=== PATIENT | male | born 1950 | race Caucasian/White ===

== ENCOUNTER 2020-07-20 08:41 | Outpatient (REF) | payer MEDICARE, SELFPAY ==
[2020-07-20 09:40] LABS: MANUAL DIFF FLAG NO
[2020-07-20 09:54] LABS: Basophils Percent Auto 0.5 % (0-2); Eosinophils Percent Auto 0.1 % (0-4); Hematocrit 42.4 % (42-52); Hemoglobin 14.5 g/dl (14.0-18.0); Imm Gran Abs Auto 0.03 X10*3/uL (0.00-0.03); Imm Gran Pct Auto 0.4 % (0.0-0.4); Lymphocytes Absolute Auto 2.3 X10*3/uL (1.2-4.9); Mean Corpuscular HGB Conc 34.2 g/dl (31.0-36.0); Mean Corpuscular Hemoglobin 31.9 pg (27.0-33.0); Mean Corpuscular Volume 93.2 fL (80-98); Mean Platelet Volume 9.6 fL (9.4-12.4); Monocytes Absolute Auto 0.6 X10*3/uL (0.1-1.2); Monocytes Percent Auto 7.7 % (2-11); Neutrophils Absolute Auto 4.7 X10*3/uL (2.0-8.3); Neutrophils Percent Auto 61.3 % (45-73); Platelet Count 175 X10*3/uL (160-400); Red Blood Count 4.55 X10*6/uL (4.60-5.80); Red Cell Distribution Width 12.8 % (11.0-16.0); White Blood Count 7.6 X10*3/uL (4.8-10.8)
[2020-07-20 10:21] LABS: Alanine Aminotransferase 8 U/L (0-40); Albumin Level 4.4 g/dL (3.5-5.0); Alkaline Phosphatase 50 U/L (39-117); Anion Gap 13 (12-20); Aspartate Amino Transferase 13 U/L (5-37); Bilirubin Total 1.5 mg/dL (0.0-1.0); Blood Urea Nitrogen 11 mg/dL (9-16); Calcium 9.5 mg/dL (8.4-10.2); Carbon Dioxide 27 mmol/L (22-29); Chloride 106 mmol/L (96-108); Cholesterol 159 mg/dL; Estimated Glomerular Filt Rate 45; Glucose Fasting 99 mg/dL (60-99); HDL Cholesterol 32 mg/dL; LDL Cholesterol Calculated 92 mg/dl; Potassium 4.2 mmol/l (3.3-5.1); Sodium 142 mmol/L (135-145); Total Protein 6.8 g/dL (6.5-8.0); Triglycerides 179 mg/dL
[2020-07-20 10:42] LABS: T4 Thyroxine 11.3 ug/dL (4.5-12.0); Thyroid Stimulating Hormone 0.13 uIU/mL (0.32-4.0)
[2020-07-20 11:01] LABS: Folate > 20.0 ng/mL (> or = 4.0); Vitamin B12 > 2000 pg/mL (200-900)
== END 2020-07-20 08:42 | disposition home or self-care (01) ==
LOC: HO.LAB 08:41
PROVIDERS: Referring Provider Internal Medicine Endocrinology, Diabetes & Metabolism; Visit Provider Internal Medicine
DX: E78.00 Pure hypercholesterolemia, unspecified (principal); Z72.0 Tobacco use; G50.0 Trigeminal neuralgia; E03.9 Hypothyroidism, unspecified; I10 Essential (primary) hypertension; F41.8 Other specified anxiety disorders
CPT/HCPCS: 36415; 80053; 80061; 82607; 82746; 84436; 84443; 85025

== ENCOUNTER 2020-10-15 09:12 | Outpatient (REF) | payer MEDICARE, SELFPAY ==
[2020-10-15 10:22] LABS: Free T4 (Free Thyroxine) 1.08 ng/dL (0.71-1.85); Thyroid Stimulating Hormone 2.77 uIU/mL (0.32-4.0)
== END 2020-10-15 09:13 | disposition home or self-care (01) ==
LOC: HO.LAB 09:12
PROVIDERS: PCP Internal Medicine; Visit Provider Internal Medicine
DX: E03.9 Hypothyroidism, unspecified (principal)
CPT/HCPCS: 36415; 84439; 84443

== ENCOUNTER 2021-06-25 07:51 | Outpatient (REF) | payer MEDICARE, SELFPAY ==
[2021-06-25 08:18] LABS: MANUAL DIFF FLAG NO
[2021-06-25 08:41] LABS: Basophils Percent Auto 0.5 % (0-2); Eosinophils Percent Auto 0.2 % (0-4); Hematocrit 36.4 % (42.0-52.0); Hemoglobin 12.7 g/dl (14.0-18.0); Imm Gran Abs Auto 0.02 X10*3/uL (0.00-0.03); Imm Gran Pct Auto 0.4 % (0.0-0.4); Lymphocytes Absolute Auto 2.1 X10*3/uL (1.2-4.9); Mean Corpuscular HGB Conc 34.9 g/dl (31.0-36.0); Mean Corpuscular Hemoglobin 32.6 pg (27.0-33.0); Mean Corpuscular Volume 93.3 fL (80.0-98.0); Mean Platelet Volume 9.3 fL (9.4-12.4); Monocytes Absolute Auto 0.5 X10*3/uL (0.1-1.2); Monocytes Percent Auto 8.2 % (2-11); Neutrophils Percent Auto 52.7 % (45-73); Platelet Count 150 X10*3/uL (160-400); Red Cell Distribution Width 12.7 % (11.0-16.0); White Blood Count 5.6 X10*3/uL (4.8-10.8)
[2021-06-25 09:04] LABS: Alanine Aminotransferase 9 U/L (0-40); Alkaline Phosphatase 42 U/L (39-117); Anion Gap 11 (12-20); Aspartate Amino Transferase 14 U/L (5-37); Bilirubin Total 0.8 mg/dL (0.0-1.0); Blood Urea Nitrogen 9 mg/dL (9-16); Calcium 9.5 mg/dL (8.4-10.2); Carbon Dioxide 28 mmol/L (22-29); Chloride 106 mmol/L (96-108); Cholesterol 156 mg/dL; Estimated Glomerular Filt Rate 51; Glucose Random 106 mg/dL (60-115); HDL Cholesterol 33 mg/dL; LDL Cholesterol Calculated 96 mg/dl; Potassium 4.3 mmol/L (3.3-5.1); Sodium 141 mmol/L (135-145); Total Protein 6.4 g/dL (6.5-8.0); Triglycerides 139 mg/dL
[2021-06-25 09:21] LABS: TSH reflex Free T4 1.34 uIU/mL (0.32-4.0)
[2021-06-25 09:27] LABS: Free T4 (Free Thyroxine) 1.42 ng/dL (0.71-1.85)
[2021-06-25 09:49] LABS: Folate > 20.0 ng/mL (> or = 4.0); Vitamin B12 > 2000 pg/mL (200-900)
== END 2021-06-25 07:52 | disposition home or self-care (01) ==
LOC: HO.LAB 07:51
PROVIDERS: Absent Provider Internal Medicine Endocrinology, Diabetes & Metabolism; PCP Internal Medicine; Visit Provider Internal Medicine
DX: E03.9 Hypothyroidism, unspecified (principal); E78.00 Pure hypercholesterolemia, unspecified; I12.9 Hypertensive chronic kidney disease with stage 1 through stage 4 chronic kidney disease, or unspecified chronic kidney disease; N18.31 Chronic kidney disease, stage 3a
CPT/HCPCS: 36415; 80053; 80061; 82607; 82746; 84439; 84443; 85025

== ENCOUNTER 2021-12-11 08:04 | Outpatient (REF) | payer MEDICARE, SELFPAY ==
[2021-12-11 08:26] LABS: MANUAL DIFF FLAG NO
[2021-12-11 08:33] LABS: Basophils Absolute Auto 0.1 X10*3/uL (0.0-0.2); Basophils Percent Auto 0.9 % (0-2); Hematocrit 39.5 % (42.0-52.0); Hemoglobin 13.3 g/dl (14.0-18.0); Imm Gran Abs Auto 0.02 X10*3/uL (0.00-0.03); Imm Gran Pct Auto 0.4 % (0.0-0.4); Immature Retic Fraction 9.9 % (2.3-13.4); Mean Corpuscular HGB Conc 33.7 g/dl (31.0-36.0); Mean Corpuscular Hemoglobin 31.6 pg (27.0-33.0); Mean Corpuscular Volume 93.8 fL (80.0-98.0); Mean Platelet Volume 9.1 fL (9.4-12.4); Monocytes Absolute Auto 0.4 X10*3/uL (0.1-1.2); Monocytes Percent Auto 6.9 % (2-11); Neutrophils Absolute Auto 3.2 x10*3/uL (2.0-8.3); Neutrophils Percent Auto 55.8 % (45-73); Platelet Count 163 X10*3/uL (160-400); Red Blood Count 4.21 X10*6/uL (4.60-5.80); Red Cell Distribution Width 12.6 % (11.0-16.0); Reticulocyte Percent 1.5 % (0.5-1.8); Reticulocytes Absolute 0.062 X10*6/uL (0.026-0.095); White Blood Count 5.6 X10*3/uL (4.8-10.8)
[2021-12-11 08:51] LABS: Estimated Average Glucose 94 mg/dL; Hemoglobin A1c % 4.9 %
[2021-12-11 08:59] LABS: Alanine Aminotransferase 7 U/L (0-40); Alkaline Phosphatase 44 U/L (39-117); Anion Gap 11 (12-20); Aspartate Amino Transferase 12 U/L (5-37); Blood Urea Nitrogen 7 mg/dL (9-16); Calcium 9.7 mg/dL (8.4-10.2); Carbon Dioxide 26 mmol/L (22-29); Chloride 107 mmol/L (96-108); Estimated Glomerular Filt Rate 47; Glucose Random 106 mg/dL (60-115); Iron 81 mcg/dL (45-160); Percent Iron Saturation 25 % (15-50); Potassium 4.2 mmol/L (3.3-5.1); Sodium 140 mmol/L (135-145); Total Iron Binding Capacity 326 mcg/dL (228-428); Total Protein 6.5 g/dL (6.5-8.0); Unsaturated Iron Binding 245 ug/dL
[2021-12-11 09:22] LABS: TSH reflex Free T4 1.99 uIU/mL (0.32-4.0)
[2021-12-11 09:23] LABS: Ferritin 49 ng/mL (20-250); Free T4 (Free Thyroxine) 1.45 ng/dL (0.71-1.85)
[2021-12-11 09:37] LABS: Folate > 20.0 ng/mL (> or = 4.0); Vitamin B12 > 2000 pg/mL (200-900)
== END 2021-12-11 08:05 | disposition home or self-care (01) ==
LOC: HO.LAB 08:04
PROVIDERS: Absent Provider Internal Medicine Endocrinology, Diabetes & Metabolism; PCP Internal Medicine; Visit Provider Internal Medicine
DX: E03.9 Hypothyroidism, unspecified (principal); D64.9 Anemia, unspecified; R73.01 Impaired fasting glucose
CPT/HCPCS: 36415; 80053; 82607; 82728; 82746; 83036; 83540; 84439; 84443; 85025; 85045

== ENCOUNTER 2022-07-09 08:41 | Outpatient (REF) | payer MEDICARE, SELFPAY ==
[2022-07-09 08:56] LABS: MANUAL DIFF FLAG NO
[2022-07-09 09:23] LABS: Basophils Absolute Auto 0.1 X10*3/uL (0.0-0.2); Basophils Percent Auto 0.9 % (0-2); Hematocrit 42.6 % (42.0-52.0); Hemoglobin 14.4 g/dl (14.0-18.0); Imm Gran Abs Auto 0.01 X10*3/uL (0.00-0.03); Imm Gran Pct Auto 0.2 % (0.0-0.4); Lymphocytes Absolute Auto 2.3 X10*3/uL (1.2-4.9); Lymphocytes Percent Auto 35.2 % (20-40); Mean Corpuscular HGB Conc 33.8 g/dl (31.0-36.0); Mean Corpuscular Hemoglobin 31.1 pg (27.0-33.0); Mean Platelet Volume 9.1 fL (9.4-12.4); Monocytes Absolute Auto 0.4 X10*3/uL (0.1-1.2); Monocytes Percent Auto 6.1 % (2-11); Neutrophils Absolute Auto 3.8 x10*3/uL (2.0-8.3); Neutrophils Percent Auto 57.6 % (45-73); Platelet Count 162 X10*3/uL (160-400); Red Blood Count 4.63 X10*6/uL (4.60-5.80); Red Cell Distribution Width 12.7 % (11.0-16.0); White Blood Count 6.5 X10*3/uL (4.8-10.8)
[2022-07-09 09:25] LABS: Estimated Average Glucose 94 mg/dL; Hemoglobin A1c % 4.9 %
[2022-07-09 10:04] LABS: Alanine Aminotransferase 7 U/L (0-40); Albumin Level 4.3 g/dL (3.5-5.0); Alkaline Phosphatase 47 U/L (39-117); Anion Gap 13 (12-20); Aspartate Amino Transferase 15 U/L (5-37); Bilirubin Total 1.2 mg/dL (0.0-1.0); Blood Urea Nitrogen 9 mg/dL (9-16); Carbon Dioxide 28 mmol/L (22-29); Chloride 103 mmol/L (96-108); Estimated Glomerular Filt Rate 48; Glucose Random 91 mg/dL (60-115); Potassium 3.9 mmol/L (3.3-5.1); Sodium 140 mmol/L (135-145); Thyroid Stimulating Hormone 1.52 uIU/mL (0.32-4.0); Total Protein 6.9 g/dL (6.5-8.0)
== END 2022-07-09 08:42 | disposition home or self-care (01) ==
LOC: HO.LAB 08:41
PROVIDERS: PCP Internal Medicine; Visit Provider Internal Medicine
DX: R73.01 Impaired fasting glucose (principal); E03.9 Hypothyroidism, unspecified
CPT/HCPCS: 36415; 80053; 83036; 84439; 84443; 85025

== ENCOUNTER 2022-09-25 13:38 | Outpatient (REF) | payer MEDICARE, SELFPAY ==
[2022-09-25 13:50] LABS: MANUAL DIFF FLAG NO
[2022-09-25 14:09] LABS: Basophils Absolute Auto 0.1 X10*3/uL (0.0-0.2); Hematocrit 41.3 % (42.0-52.0); Imm Gran Abs Auto 0.03 X10*3/uL (0.00-0.03); Imm Gran Pct Auto 0.4 % (0.0-0.4); Lymphocytes Absolute Auto 2.3 X10*3/uL (1.2-4.9); Lymphocytes Percent Auto 31.7 % (20-40); Mean Corpuscular HGB Conc 33.9 g/dl (31.0-36.0); Mean Corpuscular Hemoglobin 31.6 pg (27.0-33.0); Mean Corpuscular Volume 93.2 fL (80.0-98.0); Mean Platelet Volume 9.3 fL (9.4-12.4); Monocytes Absolute Auto 0.8 X10*3/uL (0.1-1.2); Monocytes Percent Auto 10.3 % (2-11); Neutrophils Absolute Auto 4.1 x10*3/uL (2.0-8.3); Neutrophils Percent Auto 56.6 % (45-73); Platelet Count 155 X10*3/uL (160-400); Red Blood Count 4.43 X10*6/uL (4.60-5.80); Red Cell Distribution Width 12.7 % (11.0-16.0); White Blood Count 7.3 X10*3/uL (4.8-10.8)
[2022-09-25 14:49] LABS: Alanine Aminotransferase 15 U/L (0-40); Albumin Level 4.2 g/dL (3.5-5.0); Alkaline Phosphatase 43 U/L (39-117); Anion Gap 13 (12-20); Aspartate Amino Transferase 13 U/L (5-37); Bilirubin Total 1.8 mg/dL (0.0-1.0); Blood Urea Nitrogen 8 mg/dL (9-16); Calcium 9.6 mg/dL (8.4-10.2); Carbon Dioxide 28 mmol/L (22-29); Chloride 104 mmol/L (96-108); Cholesterol 165 mg/dL; Estimated Glomerular Filt Rate 46; Glucose Random 62 mg/dL (60-115); HDL Cholesterol 33 mg/dL; LDL Cholesterol Calculated 101 mg/dl; Sodium 141 mmol/L (135-145); Total Protein 6.5 g/dL (6.5-8.0); Triglycerides 157 mg/dL
[2022-09-25 15:09] LABS: Folate 3.7 ng/mL (> or = 4.0); Thyroid Stimulating Hormone 0.69 uIU/mL (0.32-4.0); Vitamin B12 1410 pg/mL (200-900)
== END 2022-09-25 13:39 | disposition home or self-care (01) ==
LOC: HO.LAB 13:38
PROVIDERS: PCP Internal Medicine; Visit Provider Internal Medicine
DX: N18.31 Chronic kidney disease, stage 3a (principal); E78.00 Pure hypercholesterolemia, unspecified
CPT/HCPCS: 36415; 80053; 80061; 82607; 82746; 84439; 84443; 85025

== ENCOUNTER → 2023-02-13 10:47 | Outpatient (BNVA) | payer MEDICARE, SELFPAY | PROVIDERS: Visit Provider Orthopaedic Surgery | DX: R22.31 Localized swelling, mass and lump, right upper limb (principal); N18.31 Chronic kidney disease, stage 3a; I71.40 Abdominal aortic aneurysm, without rupture, unspecified | CPT/HCPCS: 99202 ==

== ENCOUNTER 2023-02-19 08:34 | Day surgery (SDC) | payer MEDICARE, SELFPAY ==
[2023-02-19 08:47] VITALS: BP 147/60; PULSE 62; RESP 18; TEMP 36.3; O2SAT 97; BMI 27.3
--- NOTE | 2023-02-19 11:39 | MHC.SHP ---
Pre-Procedural Eval Section A Date of Service: 02/19/23 The patient is an INPATIENT: No Changes since office visit: No Cold of Flu in the past 2 weeks, No New Medical Problems, No Changes in Medication and No Patient answered all questions The History & Physical has been completed within 30 days and I have reviewed it.: Yes Section B Chief Complaint: Localized swelling, mass and lump, right upper bull Allergies: Allergies Allergy/AdvReac Type Severity Reaction Status Date / Time No Known Allergies Allergy Verified 02/13/23 11:03 Plan I have reviewed the history and physical and performed a pertinent physical examination on my patient. No changes have occurred unless specified. Time Spent With Patient Time: Total time managing care of this patient today ____ minutes.
--- NOTE | 2023-02-19 11:40 | W.PM.OPN ---
Operative Note Operative Note Date of Service: 02/19/23 Narrative: Operative Note Preop diagnosis: 1. right dorsal hand skin mass worrisome for malignancy Postop diagnosis: same Procedure: 1. right dorsal hand skin mass excisional biopsy Surgeon: Kaylen Vidal MD Anesthesia: digital block using 1% lidocaine with epinephrine Findings: An approximately 9 mm diameter raised pink skin mass EBL: Less than 5 mL Tourniquet time: None Specimens: right dorsal hand skin mass sent for histopathology Complications: None Disposition: Brought to recovery room in stable condition Plan: Follow-up for 7-10 days for wound check and suture removal and to check pathology Indications: The patient is 72 years old, with a right dorsal hand skin mass worrisome for malignancy . The risks and benefits of operative treatment including but not limited to risk of damage to blood vessels, nerves, tendons, infection, persistent pain, persistent symptoms, recurrence or possible need for additional surgery were discussed with the patient and the patient wishes to proceed with surgery. Procedure: Once consent was obtained a local block was performed in the preop area using a combination of 1% lidocaine with epinephrine. The patient was then brought back to the operating suite and placed on the operative table in supine position. A tourniquet was applied to the proximal aspect of the right upper extremity and the limb was prepped and draped in a standard surgical fashion. Once assured that we had a good block, I made a longitudinally oriented elliptical incision about the right dorsal hand skin mass. the mass was pink and raised in approximately 9 mm in diameter.. I then dissected the elliptical piece of skin from the underlying subcutaneous tissues using a 15. Blade and tenotomy and iris scissors. We made sure to try to have at least 2 mm on either side of the mass in an attempt to have clean margins. The mass appeared to be within the skin and did not appear to extend deep to the dermis. Was placed on the back table to be sent for histopathology. No other masses were appreciated. Once satisfied with Are excisional biopsy the wound was copiously irrigated with normal saline and hemostasis was obtained with a brief period of local pressure. The skin edges were reapproximated with some 5.0 nylon suture material and a sterile dressing was applied. The patient appears to have tolerated the procedure well and with no complications. All digits were well vascularized at the conclusion of the case.
[2023-02-19 12:06] VITALS: BP 159/89; PULSE 59; RESP 16; O2SAT 98
[2023-02-19 13:21] VITALS: BP 159/89; PULSE 59; RESP 16; O2SAT 98
== END 2023-02-19 13:22 | disposition home or self-care (01) ==
PROVIDERS: PCP Internal Medicine; Visit Provider Orthopaedic Surgery
PROC: (CPT 11421; principal; 2023-02-19 10:30)
DX: R22.31 Localized swelling, mass and lump, right upper limb (principal); L85.8 Other specified epidermal thickening; L57.8 Other skin changes due to chronic exposure to nonionizing radiation; X32.XXXA Exposure to sunlight, initial encounter; Y99.8 Other external cause status; I12.9 Hypertensive chronic kidney disease with stage 1 through stage 4 chronic kidney disease, or unspecified chronic kidney disease; N18.31 Chronic kidney disease, stage 3a; G50.0 Trigeminal neuralgia; R73.02 Impaired glucose tolerance (oral); Z86.79 Personal history of other diseases of the circulatory system; F17.210 Nicotine dependence, cigarettes, uncomplicated
CPT/HCPCS: 11421; 88305; J0171

== ENCOUNTER → 2023-02-19 08:34 | Outpatient (BNV) | payer MEDICARE, SELFPAY | PROVIDERS: PCP Internal Medicine; Visit Provider Orthopaedic Surgery | DX: R22.31 Localized swelling, mass and lump, right upper limb (principal) | CPT/HCPCS: 11423 ==

== ENCOUNTER 2023-03-03 08:25 | Outpatient (AMB) | payer MEDICARE, SELFPAY ==
--- NOTE | 2023-03-03 08:28 | MHC.PC.OV ---
Vital Signs 03/03/23 08:29 Height 5 ft 9 in Weight 188 lb BMI 27.8 BP 128/72 Blood Pressure Location Lt brachial Position Sitting Pulse 77 Pulse Source Pulse Oximeter Pulse Oximetry (%) 98 Oxygen Delivery Method Room Air Intake Visit Reasons: Med Management Allergies No Known Allergies Allergy (Verified 03/03/23 08:29) Tobacco use date assessed: 01/06/23 Fall risk assessment: No Falls in past year Last assessed Fall Risk: 03/03/23 Dental Screening Dental Screen Date: 03/03/23 Did you have a dental visit in the last 12 months?: Yes Did you have a dental problem in the last 6 months where you did not have access to dental care?: No Was dental information given to patient?: Patient has dentist HPI Med Management HPI Details 72-year-old male smoker with trigeminal neurologist seen on a monthly basis for narcotic medication refill has chronic kidney disease. Review of the notes recently had an outpatient surgery for right dorsal hand mass showing benign keratosis and solar elastosis last blood work was done in September 2019 for cholesterol. advised to see dermatology [facility] Medical History AAA (abdominal aortic aneurysm) Cervical nerve root compression Colonoscopy refused Hypercholesterolemia Hypertension Hypothyroid Impaired glucose tolerance Medicare annual wellness visit, initial Psoriasis Tobacco abuse Surgical History H/O arthroscopy of left knee History of AAA (abdominal aortic aneurysm) repair History of facial surgery Family History Father Hypertension CVD (cardiovascular disease) Mother CVD (cardiovascular disease) Brother No problems noted. Brother No problems noted. Daughter No problems noted. Sister No problems noted. Sister No problems noted. Sister No problems noted. Sister No problems noted. 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 1. Little interest or pleasure in doing things: not at all 2. Feeling down, depressed, or hopeless: not at all 3. Trouble falling or staying asleep, or sleeping too much: not at all 4. Feeling tired or having little energy: not at all 5. Poor appetite or overeating: not at all 6. Feeling bad about yourself - or that you are a failure or have let yourself or your family down: not at all 7. Trouble concentrating on things, such as reading the newspaper or watching television: not at all 8. Moving or speaking so slowly that other people could have noticed. Or the opposite - being so fidgety or restless that you have been moving around a lot more than usual: not at all 9. Thoughts that you would be better off or of hurting yourself in some way: not at all Total score: 0 Depression Screening Interpretation: Negative Source: Developed by Drs. Bautista Lizarraga, Oh Colon and colleagues, with an educational elise from [employer]. Thrive Questionnaire Date Thrive assessed: 11/07/22 AUDIT C Alcohol Use Questionnaire (AUDIT-C) 1. How often do you have a drink containing alcohol?: Never 3. How often do you have six or more drinks on one occasion?: Never Total Score: 0 CHNADA-7 AMB Questionnaire CHANDA-7 Date CHANDA - 7 assessed: 01/06/23 Source: Developed by Drs. Bautista Lizarraga, Oh Colon and colleagues, with an educational elise from [employer]. Physical exam (Primary Care) Vital Signs: Last Vital Signs Pulse 77 03/03/23 08:29 BP 128/72 03/03/23 08:29 Pulse Ox 98 03/03/23 08:29 Oxygen Delivery Method Room Air 03/03/23 08:29 Care Plan Goal for BP management: Right dorsum of the hand has 1-1/2 inch incisional scar with sutures which are going to being taken out tomorrow. No redness no swelling BMI result Body Mass Index 27.8 Tobacco/Smoking Status: Tobacco use Status Tobacco use date assessed 01/06/23 03/03/23 08:36 Patient Tobacco Use Status Current everyday Tobacco 03/03/23 08:36 Tobacco use type Cigarette 03/03/23 08:36 e-Cigarette/Vaping Use Never Used 03/03/23 08:36 PHQ-9: PHQ-9 Score PHQ-9: Total score 0 03/03/23 08:36 Depression Screening Interpretation: Negative Thrive Assessment: Date of Thrive Assessment Date Thrive assessed 11/07/22 03/03/23 08:36 Const General: alert; No acute distress Eyes Conjunctivae: conjunctivae normal Resp Auscultation: clear to auscultation bilaterally Cardio Rate: regular rate Rhythm: regular rhythm GI Inspection: Yes normal to inspection Extrem General: Yes normal to inspection and No edema Assessment and Plan Assessment & Plan (1) Mass of skin of right hand: Code(s): R22.31 - Localized swelling, mass and lump, right upper limb Plan: Status post surgery right dorsal hand mass showing benign keratosis and solar elastosis. advised to ff up with dermatology (2) CKD (chronic kidney disease) stage 3, GFR 30-59 ml/min: Code(s): N18.30 - Chronic kidney disease, stage 3 unspecified Qualifiers: Chronic kidney disease stage 3 subtype: stage 3a (GFR 45-59) Qualified Code(s): N18.31 - Chronic kidney disease, stage 3a Plan: Keep well hydrated avoid NSAIDs (3) Tobacco abuse: Code(s): Z72.0 - Tobacco use Plan: Strongly advised to stop! (4) Trigeminal neuralgia pain: Code(s): G50.0 - Trigeminal neuralgia Plan: Narcotic pain meds: Is being prescribed with the understanding that these medications are potentially addictive and should be used only when absolutely necessary and must always be secured. Any remaining pills should be safely disposed off appropriately. Patient is advised that narcotics can impaired judgment and one should not drive or operate heavy machinery while taking these medications. Never share these medications with anybody and do not leave them unattended. They will not be replaced under any circumstances. (5) Actinic keratosis: Code(s): L57.0 - Actinic keratosis Plan: Referral to Dermatology (6) Generalized anxiety disorder: Code(s): F41.1 - Generalized anxiety disorder Plan: No counseling needed and refill a prescription done Orders: Referrals Dermatology Referral L57.0 - Actinic keratosis Medications: Refilled oxycodone-acetaminophen 10-325 mg 1-2 tabs every 6 hours PRN; 240 tabs 0RF pain G50.0 - Trigeminal neuralgia diazepam (Valium) 5 mg PO BID 90 days PRN 90 tabs 1RF anxiety F41.1 - Generalized anxiety disorder Discontinued oxycodone-acetaminophen 5-325 mg Partial Fill upon patient request. Discontinued Reason: Doctor's Order 1 tab PO Q6H PRN 5 tabs 0RF pain Coding Level of Care Code Est Pt Level 4 (56413) Diagnoses Mass of skin of right hand R22.31 CKD (chronic kidney disease) stage 3, GFR 30-59 ml/min N18.31 Chronic kidney disease stage 3 subtype: stage 3a (GFR 45-59) Tobacco abuse Z72.0 Trigeminal neuralgia pain G50.0 Actinic keratosis L57.0 Generalized anxiety disorder F41.1
[2023-03-03 08:29] VITALS: BP 128/72; PULSE 77; O2SAT 98; BMI 27.8
== END 2023-03-03 08:59 | disposition home or self-care (01) ==
PROVIDERS: Visit Provider Internal Medicine
DX: R22.31 Localized swelling, mass and lump, right upper limb (principal); N18.31 Chronic kidney disease, stage 3a; Z72.0 Tobacco use; G50.0 Trigeminal neuralgia; L57.0 Actinic keratosis; F41.1 Generalized anxiety disorder
CPT/HCPCS: 99214

== ENCOUNTER 2023-03-04 14:16 | Outpatient (AMB) | payer MEDICARE, SELFPAY ==
--- NOTE | 2023-03-04 14:20 | A.OFFVIS_ITS ---
Intake Vital Signs 03/04/23 14:22 Height 5 ft 9 in Weight 188 lb BMI 27.8 Intake Visit Reasons: PO RT Dorsal Hand Skin mass exc. 02/19/23AR Intake Note: Jose Rafael a 72 year old male who presents today for a post operative right dorsal hand skin mass excision on 02/19/23 AR. Patient reports little discomfort with stretching of hand. He has no other concerns today. Allergies No Known Allergies Allergy (Verified 03/04/23 14:28) HPI PO RT Dorsal Hand Skin mass exc. 02/19/23AR HPI Details Jose Rafael is a 72 year old right hand dominant man who presents S/P right dorsal hand mass excision, DOS: 02/19/23. He says he is doing well and is happy that this mass was benign. He says he has seen a Body Design Checker in the past, but has not in several years. His primary care doctor, Dr. Perez, has referred him to dermatology. He says following his surgery he was referred to Dr. Johnson. When he followed up with his PCP, Dr. Perez, he says Dr. Johnson was listed as his PCP. He has corrected this listing with his PCP and on his records. [facility] Medical History AAA (abdominal aortic aneurysm) Cervical nerve root compression Colonoscopy refused Hypercholesterolemia Hypertension Hypothyroid Impaired glucose tolerance Medicare annual wellness visit, initial Psoriasis Tobacco abuse Surgical History H/O arthroscopy of left knee History of AAA (abdominal aortic aneurysm) repair History of facial surgery Family History Father Hypertension CVD (cardiovascular disease) Mother CVD (cardiovascular disease) Brother No problems noted. Brother No problems noted. Daughter No problems noted. Sister No problems noted. Sister No problems noted. Sister No problems noted. Sister No problems noted. 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 Sutures removed and Steri-Strips applied He can make a fist and extend all his digits Sensation is intact Cap refill is brisk Pathology Report from 02/19/23: Diagnosis Skin, right dorsal hand, excision: Benign keratosis and solar elastosis. Psych Appearance: grossly normal Affect: normal affect Attitude: cooperative Assessment & Plan Assessment & Plan (1) Mass of skin of right hand: Code(s): R22.31 - Localized swelling, mass and lump, right upper limb (2) CKD (chronic kidney disease) stage 3, GFR 30-59 ml/min: Code(s): N18.30 - Chronic kidney disease, stage 3 unspecified Qualifiers: Chronic kidney disease stage 3 subtype: stage 3a (GFR 45-59) Qualified Code(s): N18.31 - Chronic kidney disease, stage 3a (3) AAA (abdominal aortic aneurysm): Comment: December 2010 3.8 cm, March [address] Camara up Code(s): I71.4 - Abdominal aortic aneurysm, without rupture Plan Assessment & Plan: 1. Right dorsal hand keratosis & solar elastosis, S/P excision Just radial to the 2nd metacarpal DOS: 02/19/23 The patient appears to be doing well post-operatively I educated him about the post-operative course He should avoid any underwater activities for the next 2 days He should gently massage about the incision site to reduce the risk of hypersensitivity He can follow up prn Scribed for Kaylen Vidal MD by Otto Ni, medical record consultant, on 03/04/23 at 2:45 PM, EST. Coding Level of Care Code Global (69323) Diagnoses Mass of skin of right hand R22.31 CKD (chronic kidney disease) stage 3, GFR 30-59 ml/min N18.31 Chronic kidney disease stage 3 subtype: stage 3a (GFR 45-59) AAA (abdominal aortic aneurysm) I71.4
[2023-03-04 14:22] VITALS: BMI 27.8
== END 2023-03-04 15:01 ==
PROVIDERS: PCP Internal Medicine; Visit Provider Orthopaedic Surgery
DX: R22.31 Localized swelling, mass and lump, right upper limb (principal); N18.31 Chronic kidney disease, stage 3a; I71.40 Abdominal aortic aneurysm, without rupture, unspecified
CPT/HCPCS: 99024

== ENCOUNTER → 2023-03-04 14:16 | Outpatient (BNVA) | payer MEDICARE, SELFPAY | PROVIDERS: PCP Internal Medicine; Visit Provider Orthopaedic Surgery ==

== ENCOUNTER 2023-04-06 15:00 | Outpatient (AMB) | payer MEDICARE, SELFPAY ==
--- NOTE | 2023-04-06 15:01 | A.OFFPC_ITS ---
Intake Visit Reasons: Med Management Allergies No Known Allergies Allergy (Verified 04/06/23 15:01) Medication List - Last Reconciled 04/06/23 by Anne-Marie Perez MD aspirin 81 mg PO DAILY atenolol 25 mg PO BID 90 days cholecalciferol (vitamin D3) 25 mcg PO DAILY cyanocobalamin (vitamin B-12) 1,000 mcg PO DAILY diazepam (Valium) 5 mg PO BID PRN 90 days folic acid 1 mg PO DAILY levothyroxine 125 mcg PO DAILY 90 days oxycodone-acetaminophen 10-325 mg 1-2 tabs every 6 hours PRN; simvastatin 10 mg PO QPM 90 days Tobacco use date assessed: 01/06/23 Fall risk assessment: No Falls in past year Last assessed Fall Risk: 04/06/23 Dental Screening Dental Screen Date: 04/06/23 Did you have a dental visit in the last 12 months?: Yes Did you have a dental problem in the last 6 months where you did not have access to dental care?: No Was dental information given to patient?: Patient has dentist HPI Med Management HPI Details 72-year-old male smoker with a history of trigeminal neuralgia chronic kidney disease Rosie anxiety disorder coming in for follow-up through Telehealth patient was last seen in February 2023 patient follows up with orthopedics who has had then incision on mass on the right hand keratosis and solar elastosis this is just radial to the 2nd metacarpal. Called patient coming in for tele [facility] Medical History AAA (abdominal aortic aneurysm) Cervical nerve root compression Colonoscopy refused Hypercholesterolemia Hypertension Hypothyroid Impaired glucose tolerance Medicare annual wellness visit, initial Psoriasis Tobacco abuse Surgical History H/O arthroscopy of left knee History of AAA (abdominal aortic aneurysm) repair History of facial surgery Family History Father Hypertension CVD (cardiovascular disease) Mother CVD (cardiovascular disease) Brother No problems noted. Brother No problems noted. Daughter No problems noted. Sister No problems noted. Sister No problems noted. Sister No problems noted. Sister No problems noted. 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 1. Little interest or pleasure in doing things: not at all 2. Feeling down, depressed, or hopeless: not at all 3. Trouble falling or staying asleep, or sleeping too much: not at all 4. Feeling tired or having little energy: not at all 5. Poor appetite or overeating: not at all 6. Feeling bad about yourself - or that you are a failure or have let yourself or your family down: not at all 7. Trouble concentrating on things, such as reading the newspaper or watching television: not at all 8. Moving or speaking so slowly that other people could have noticed. Or the opposite - being so fidgety or restless that you have been moving around a lot more than usual: not at all 9. Thoughts that you would be better off or of hurting yourself in some way: not at all Total score: 0 Depression Screening Interpretation: Negative Source: Developed by Drs. Bautista Lizarraga, Oh Colon and colleagues, with an educational elise from [employer]. Thrive Questionnaire Date Thrive assessed: 11/07/22 AUDIT C Alcohol Use Questionnaire (AUDIT-C) 1. How often do you have a drink containing alcohol?: Never 3. How often do you have six or more drinks on one occasion?: Never Total Score: 0 CHANDA-7 AMB Questionnaire CHANDA-7 Date CHANDA - 7 assessed: 01/06/23 Source: Developed by Drs. Bautista Lizarraga, Oh Colon and colleagues, with an educational elise from [employer]. Physical exam (Primary Care) Tobacco/Smoking Status: Tobacco use Status Tobacco use date assessed 01/06/23 04/06/23 15:02 Patient Tobacco Use Status Current everyday Tobacco 04/06/23 15:02 Tobacco use type Cigarette 04/06/23 15:02 e-Cigarette/Vaping Use Never Used 04/06/23 15:02 PHQ-9: PHQ-9 Score PHQ-9: Total score 0 04/06/23 15:02 Depression Screening Interpretation: Negative Thrive Assessment: Date of Thrive Assessment Date Thrive assessed 11/07/22 04/06/23 15:02 Telehealth Telehealth Location of provider rendering services: practice address Location of patient: address on file Patient Identification confirmed using: Name, : Yes Telehealth method: voice only Patient verbally consented to treatment: Yes Patient verbally consented to billing insurance company: Yes Patient informed of any privacy concerns related to visit: Yes Minutes spent on Phone/Video with Pt.: 25 Assessment and Plan Assessment & Plan (1) Mass of skin of right hand: Code(s): R22.31 - Localized swelling, mass and lump, right upper limb Plan: Status post surgery follows up with orthopedics and doing good (2) Tobacco abuse: Code(s): Z72.0 - Tobacco use Plan: Patient has been strongly advised to stop (3) Trigeminal neuralgia pain: Code(s): G50.0 - Trigeminal neuralgia Plan: Narcotic pain meds: Is being prescribed with the understanding that these medications are potentially addictive and should be used only when absolutely necessary and must always be secured. Any remaining pills should be safely disposed off appropriately. Patient is advised that narcotics can impaired judgment and one should not drive or operate heavy machinery while taking these medications. Never share these medications with anybody and do not leave them unattended. They will not be replaced under any circumstances. Medications: Refilled oxycodone-acetaminophen 10-325 mg 1-2 tabs every 6 hours PRN; 240 tabs 0RF pain G50.0 - Trigeminal neuralgia Coding Level of Care Code Tele Est Pt Level 4 (29350) Diagnoses Mass of skin of right hand R22.31 Tobacco abuse Z72.0 Trigeminal neuralgia pain G50.0
== END 2023-04-06 15:32 | disposition home or self-care (01) ==
LOC: HO.HMGH 15:00
PROVIDERS: PCP Internal Medicine; Visit Provider Internal Medicine
DX: R22.31 Localized swelling, mass and lump, right upper limb (principal); Z72.0 Tobacco use; G50.0 Trigeminal neuralgia
CPT/HCPCS: 99443

== ENCOUNTER 2023-05-05 08:37 | Outpatient (AMB) | payer MEDICARE, SELFPAY ==
[2023-05-05 08:39] VITALS: BP 142/68; PULSE 65; O2SAT 97; BMI 27.5
--- NOTE | 2023-05-05 08:39 | MHC.PC.OV ---
Vital Signs 05/05/23 08:39 Height 5 ft 9 in Weight 186 lb BMI 27.5 BP 142/68 H Blood Pressure Location Lt brachial Position Sitting Pulse 65 Pulse Source Pulse Oximeter Pulse Oximetry (%) 97 Oxygen Delivery Method Room Air Intake Visit Reasons: med f/u Allergies No Known Allergies Allergy (Verified 05/05/23 08:39) Medication List - Last Reconciled 05/05/23 by Anne-Marie Perez MD aspirin 81 mg PO DAILY atenolol 25 mg PO BID 90 days cholecalciferol (vitamin D3) 25 mcg PO DAILY cyanocobalamin (vitamin B-12) 1,000 mcg PO DAILY diazepam (Valium) 5 mg PO BID PRN 90 days folic acid 1 mg PO DAILY levothyroxine 125 mcg PO DAILY 90 days oxycodone-acetaminophen 10-325 mg 1-2 tabs every 6 hours PRN; simvastatin 10 mg PO QPM 90 days Tobacco use date assessed: 01/06/23 Fall risk assessment: No Falls in past year Last assessed Fall Risk: 05/05/23 Dental Screening Dental Screen Date: 05/05/23 Did you have a dental visit in the last 12 months?: Yes Did you have a dental problem in the last 6 months where you did not have access to dental care?: No Was dental information given to patient?: Patient has dentist HPI med f/u HPI Details 72-year-old male smoker with trigeminal neuralgia pain on narcotic pain medication seen in the office on a monthly basis. Last seen in 04/06/2023 had surgery on the right hand for a mass. Patient is here for follow-up [facility] Medical History AAA (abdominal aortic aneurysm) Cervical nerve root compression Colonoscopy refused Hypercholesterolemia Hypertension Hypothyroid Impaired glucose tolerance Medicare annual wellness visit, initial Psoriasis Tobacco abuse Surgical History H/O arthroscopy of left knee History of AAA (abdominal aortic aneurysm) repair History of facial surgery Family History Father Hypertension CVD (cardiovascular disease) Mother CVD (cardiovascular disease) Brother No problems noted. Brother No problems noted. Daughter No problems noted. Sister No problems noted. Sister No problems noted. Sister No problems noted. Sister No problems noted. 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 1. Little interest or pleasure in doing things: not at all 2. Feeling down, depressed, or hopeless: not at all 3. Trouble falling or staying asleep, or sleeping too much: not at all 4. Feeling tired or having little energy: not at all 5. Poor appetite or overeating: not at all 6. Feeling bad about yourself - or that you are a failure or have let yourself or your family down: not at all 7. Trouble concentrating on things, such as reading the newspaper or watching television: not at all 8. Moving or speaking so slowly that other people could have noticed. Or the opposite - being so fidgety or restless that you have been moving around a lot more than usual: not at all 9. Thoughts that you would be better off or of hurting yourself in some way: not at all Total score: 0 Depression Screening Interpretation: Negative Source: Developed by Drs. Bautista Lizarraga, Candace Krause, Oh Laureano and colleagues, with an educational elise from [employer]. Thrive Questionnaire Date Thrive assessed: 11/07/22 AUDIT C Alcohol Use Questionnaire (AUDIT-C) 1. How often do you have a drink containing alcohol?: Never 3. How often do you have six or more drinks on one occasion?: Never Total Score: 0 CHANDA-7 AMB Questionnaire CHANDA-7 Date CHANDA - 7 assessed: 01/06/23 Source: Developed by Drs. Bautista Lizarraga, Candace Krause, Oh Laureano and colleagues, with an educational elise from [employer]. Physical exam (Primary Care) Vital Signs: Last Vital Signs Pulse 65 05/05/23 08:39 BP 142/68 H 05/05/23 08:39 Pulse Ox 97 05/05/23 08:39 Oxygen Delivery Method Room Air 05/05/23 08:39 BMI result Body Mass Index 27.5 Tobacco/Smoking Status: Tobacco use Status Tobacco use date assessed 01/06/23 05/05/23 08:40 Patient Tobacco Use Status Current everyday Tobacco 05/05/23 08:40 Tobacco use type Cigarette 05/05/23 08:40 e-Cigarette/Vaping Use Never Used 05/05/23 08:40 PHQ-9: PHQ-9 Score PHQ-9: Total score 0 05/05/23 08:45 Depression Screening Interpretation: Negative Thrive Assessment: Date of Thrive Assessment Date Thrive assessed 11/07/22 05/05/23 08:40 Const General: alert; No acute distress Eyes Conjunctivae: conjunctivae normal Resp Auscultation: clear to auscultation bilaterally Cardio Rate: regular rate Rhythm: regular rhythm GI Inspection: Yes normal to inspection Extrem General: Yes normal to inspection and No edema Assessment and Plan Assessment & Plan (1) Tobacco abuse: Code(s): Z72.0 - Tobacco use Plan: Patient has been advised to stop smoking! (2) Hypertension: Code(s): I10 - Essential (primary) hypertension Qualifiers: Hypertension type: essential hypertension Qualified Code(s): I10 - Essential (primary) hypertension Plan: Continue with blood pressure medication. Decrease salt intake and exercise patient on atenolol 25 mg twice a day (3) Trigeminal neuralgia pain: Code(s): G50.0 - Trigeminal neuralgia Plan: Narcotic pain meds: Is being prescribed with the understanding that these medications are potentially addictive and should be used only when absolutely necessary and must always be secured. Any remaining pills should be safely disposed off appropriately. Patient is advised that narcotics can impaired judgment and one should not drive or operate heavy machinery while taking these medications. Never share these medications with anybody and do not leave them unattended. They will not be replaced under any circumstances. (4) CKD (chronic kidney disease) stage 3, GFR 30-59 ml/min: Code(s): N18.30 - Chronic kidney disease, stage 3 unspecified Qualifiers: Chronic kidney disease stage 3 subtype: stage 3a (GFR 45-59) Qualified Code(s): N18.31 - Chronic kidney disease, stage 3a Plan: Continue to monitor renal function Orders: Orders Hemoglobin A1c Today R73.01 - Impaired fasting glucose Ferritin Today D64.9 - Anemia, unspecified IRON PROFILE Today D64.9 - Anemia, unspecified Vitamin B12 and Folate Today D64.9 - Anemia, unspecified Reticulocyte Count Today D64.9 - Anemia, unspecified Lipid Panel Today E03.9 - Hypothyroidism, unspecified, E78.00 - Pure hypercholesterolemia, unspecified Comprehensive Met. Panel Today N18.31 - Chronic kidney disease, stage 3a Complete Blood Count Auto Diff Today D64.9 - Anemia, unspecified Free T4 (Free Thyroxine) Today E03.9 - Hypothyroidism, unspecified Thyroid Stimulating Hormone Today E03.9 - Hypothyroidism, unspecified Medications: Refilled oxycodone-acetaminophen 10-325 mg 1-2 tabs every 6 hours PRN; 240 tabs 0RF pain G50.0 - Trigeminal neuralgia Coding Level of Care Code Est Pt Level 4 (39401) Diagnoses Tobacco abuse Z72.0 Essential hypertension I10 Hypertension type: essential hypertension Trigeminal neuralgia pain G50.0 Stage 3a chronic kidney disease N18.31 Chronic kidney disease stage 3 subtype: stage 3a (GFR 45-59)
== END 2023-05-05 09:11 | disposition home or self-care (01) ==
PROVIDERS: Visit Provider Internal Medicine
DX: I12.9 Hypertensive chronic kidney disease with stage 1 through stage 4 chronic kidney disease, or unspecified chronic kidney disease (principal); N18.31 Chronic kidney disease, stage 3a; Z72.0 Tobacco use; G50.0 Trigeminal neuralgia
CPT/HCPCS: 99214

== ENCOUNTER 2023-05-29 08:09 | Outpatient (REF) | payer MEDICARE, SELFPAY ==
[2023-05-29 08:18] LABS: MANUAL DIFF FLAG NO
[2023-05-29 08:39] LABS: Basophils Absolute Auto 0.1 X10*3/uL (0.0-0.2); Basophils Percent Auto 0.7 % (0-2); Hematocrit 42.7 % (42.0-52.0); Hemoglobin 14.7 g/dl (14.0-18.0); Imm Gran Abs Auto 0.04 X10*3/uL (0.00-0.03); Imm Gran Pct Auto 0.5 % (0.0-0.4); Immature Retic Fraction 11.1 % (2.3-13.4); Lymphocytes Absolute Auto 1.8 X10*3/uL (1.2-4.9); Lymphocytes Percent Auto 23.8 % (20-40); Mean Corpuscular HGB Conc 34.4 g/dl (31.0-36.0); Mean Corpuscular Hemoglobin 32.5 pg (27.0-33.0); Mean Corpuscular Volume 94.3 fL (80.0-98.0); Mean Platelet Volume 9.3 fL (9.4-12.4); Monocytes Absolute Auto 0.6 X10*3/uL (0.1-1.2); Monocytes Percent Auto 7.7 % (2-11); Neutrophils Percent Auto 67.3 % (45-73); Platelet Count 157 X10*3/uL (160-400); Red Blood Count 4.53 X10*6/uL (4.60-5.80); Red Cell Distribution Width 12.5 % (11.0-16.0); Retic HGB Equivalent 36.9 pg (30.0-35.0); Reticulocyte Percent 1.5 % (0.5-1.8); Reticulocytes Absolute 0.068 X10*6/uL (0.026-0.095); White Blood Count 7.4 X10*3/uL (4.8-10.8)
[2023-05-29 08:59] LABS: Estimated Average Glucose 94 mg/dL; Hemoglobin A1c % 4.9 % (<6.0)
[2023-05-29 09:08] LABS: Alanine Aminotransferase 8 U/L (0-40); Albumin Level 4.3 g/dL (3.5-5.0); Alkaline Phosphatase 49 U/L (39-117); Anion Gap 14 (12-20); Aspartate Amino Transferase 13 U/L (5-37); Blood Urea Nitrogen 8 mg/dL (9-16); Calcium 10.4 mg/dL (8.4-10.2); Carbon Dioxide 25 mmol/L (22-29); Chloride 105 mmol/L (96-108); Cholesterol 161 mg/dL (<200); Estimated Glomerular Filt Rate 52; Glucose Random 103 mg/dL (60-115); HDL Cholesterol 34 mg/dL (>40); Iron 64 mcg/dL (45-160); LDL Cholesterol Calculated 95 mg/dL (<100); Percent Iron Saturation 23 % (15-50); Sodium 140 mmol/L (135-145); Total Iron Binding Capacity 280 mcg/dL (228-428); Total Protein 7.1 g/dL (6.5-8.0); Triglycerides 163 mg/dL (<150); Unsaturated Iron Binding 216 ug/dL
[2023-05-29 09:31] LABS: Ferritin 52 ng/mL (20-250); Free T4 (Free Thyroxine) 1.28 ng/dL (0.71-1.85); Thyroid Stimulating Hormone 0.51 uIU/mL (0.32-4.0)
[2023-05-29 09:38] LABS: Folate > 20.0 ng/mL (> or = 4.0); Vitamin B12 1405 pg/mL (200-900)
== END 2023-05-29 08:10 | disposition home or self-care (01) ==
LOC: HO.LAB 08:09
PROVIDERS: PCP Internal Medicine; Visit Provider Internal Medicine
DX: D64.9 Anemia, unspecified (principal); N18.31 Chronic kidney disease, stage 3a; E03.9 Hypothyroidism, unspecified; R73.01 Impaired fasting glucose; E78.00 Pure hypercholesterolemia, unspecified
CPT/HCPCS: 36415; 80053; 80061; 82607; 82728; 82746; 83036; 83540; 84439; 84443; 85025; 85045

== ENCOUNTER 2023-06-03 08:54 | Outpatient (AMB) | payer MEDICARE, SELFPAY ==
[2023-06-03 08:55] VITALS: BP 170/90; PULSE 67; O2SAT 96; BMI 27.3
--- NOTE | 2023-06-03 08:55 | MHC.PC.OV ---
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 Accompanied by: Self / Same As Patient Allergies No Known Allergies Allergy (Verified 06/03/23 08:58) Tobacco use date assessed: 01/06/23 Fall risk assessment: No Falls in past year Last assessed Fall Risk: 06/03/23 Dental Screening Dental Screen Date: 06/03/23 Did you have a dental visit in the last 12 months?: No Did you have a dental problem in the last 6 months where you did not have access to dental care?: No Was dental information given to patient?: Patient has dentist HPI med f/u HPI Details 72-year-old male smoker with a history of trigeminal neuralgia narcotic pain medication patient has blood pressure problems and chronic kidney disease comes in for follow-up. [facility] Medical History AAA (abdominal aortic aneurysm) Cervical nerve root compression Colonoscopy refused Hypercholesterolemia Hypertension Hypothyroid Impaired glucose tolerance Medicare annual wellness visit, initial Psoriasis Tobacco abuse Surgical History History of facial surgery H/O arthroscopy of left knee History of AAA (abdominal aortic aneurysm) repair Family History Father Hypertension CVD (cardiovascular disease) Mother CVD (cardiovascular disease) Brother No problems noted. Brother No problems noted. Daughter No problems noted. Sister No problems noted. Sister No problems noted. Sister No problems noted. Sister No problems noted. 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 Bautista Lizarraga, Candace Krause, Oh Laureano and colleagues, with an educational elise from [employer]. Physical exam (Primary Care) Vital Signs: Last Vital Signs Pulse 67 06/03/23 08:55 BP 144/88 H 06/03/23 09:24 Pulse Ox 96 06/03/23 08:55 Oxygen Delivery Method Room Air 06/03/23 08:55 BMI result Body Mass Index 27.3 Tobacco/Smoking Status: Tobacco use Status Tobacco use date assessed 01/06/23 06/03/23 08:57 Patient Tobacco Use Status Current everyday Tobacco 06/03/23 08:57 Tobacco use type Cigarette 06/03/23 08:57 e-Cigarette/Vaping Use Never Used 06/03/23 08:57 Thrive Assessment: Date of Thrive Assessment Date Thrive assessed 11/07/22 06/03/23 08:57 Const General: alert; No acute distress Eyes Conjunctivae: conjunctivae normal Resp Auscultation: clear to auscultation bilaterally Cardio Rate: regular rate Rhythm: regular rhythm GI Inspection: Yes normal to inspection Extrem General: Yes normal to inspection and No edema Office Procedures Flu Questionnaire Does the patient have a severe egg allergy?: No Does the patient have severe life threatening allergies?: No Does the patient have a fever or illness today?: No Has the patient ever had Guillain-Latty Syndrome?: No Has the patient ever had any past reaction to a flu shot?: No Immunizations flu vacc [id number] 6mos up(PF) 60 mcg(15 mcgx4)/0.5 mL IM syringe Performing Provider: Anne-Marie Perez MD Performing Location: [facility] [place] [facility] Administered by: ROSENDO Flores on 06/03/23 09:31 Dose Route Admin Location Dispensed Lot Number Expiration Date NDC Outpatient Case Manager 0.5 mL IM Left Deltoid 0.5 mL [id number] 02/07/24 [id number] [employer] VIS Given Date VIS Provided VIS Publication Date 06/03/23 Single Vaccine 21 Eligibility Eligibility Date Funding Source Not VFC Eligible 06/03/23 Private Assessment and Plan Assessment & Plan (1) Tobacco abuse: Code(s): Z72.0 - Tobacco use Plan: Strongly advised to stop smoking ! (2) Trigeminal neuralgia pain: Code(s): G50.0 - Trigeminal neuralgia Plan: Narcotic pain meds: Is being prescribed with the understanding that these medications are potentially addictive and should be used only when absolutely necessary and must always be secured. Any remaining pills should be safely disposed off appropriately. Patient is advised that narcotics can impaired judgment and one should not drive or operate heavy machinery while taking these medications. Never share these medications with anybody and do not leave them unattended. They will not be replaced under any circumstances. (3) Hypertension: Code(s): I10 - Essential (primary) hypertension Qualifiers: Hypertension type: essential hypertension Qualified Code(s): I10 - Essential (primary) hypertension Plan: Continue with blood pressure medication. Decrease salt intake and exercise patient is taking atenolol 25 mg twice a day discussed with the patient to keep an eye on blood pressure at home Orders: Orders Influenza [id number] Immunization Today Z23 - Encounter for immunization Medications: Refilled oxycodone-acetaminophen 10-325 mg 1-2 tabs every 6 hours PRN; 240 tabs 0RF pain G50.0 - Trigeminal neuralgia Coding Level of Care Code Est Pt Level 4 (28353) Diagnoses Tobacco abuse Z72.0 Trigeminal neuralgia pain G50.0 Essential hypertension I10 Hypertension type: essential hypertension
[2023-06-03 09:24] VITALS: BP 144/88
== END 2023-06-03 09:44 | disposition home or self-care (01) ==
PROVIDERS: Visit Provider Internal Medicine
DX: Z72.0 Tobacco use (principal); G50.0 Trigeminal neuralgia; I10 Essential (primary) hypertension; Z23 Encounter for immunization
CPT/HCPCS: 90471; 90686; 99214

== ENCOUNTER 2023-07-01 08:29 | Outpatient (AMB) | payer MEDICARE, SELFPAY ==
[2023-07-01 08:38] VITALS: BP 140/72; PULSE 75; O2SAT 98; BMI 26.4
--- NOTE | 2023-07-01 08:38 | A.OFFPC_ITS ---
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 Allergies No Known Allergies Allergy (Verified 07/01/23 08:41) Medication List - Last Reconciled 07/01/23 by Anne-Marie Perez MD aspirin 81 mg PO DAILY atenolol 25 mg PO BID 90 days cholecalciferol (vitamin D3) 25 mcg PO DAILY clobetasol 0.05% 1 appl topical BID 2 weeks cyanocobalamin (vitamin B-12) 1,000 mcg PO DAILY diazepam (Valium) 5 mg PO BID PRN 90 days folic acid 1 mg PO DAILY levothyroxine 125 mcg PO DAILY 90 days oxycodone-acetaminophen 10-325 mg 1-2 tabs every 6 hours PRN; simvastatin 10 mg PO QPM 90 days Tobacco use date assessed: 07/01/23 Fall risk assessment: No Falls in past year Last assessed Fall Risk: 07/01/23 HPI med f/u HPI Details 72-year-old male smoker with a history o f trigeminal neuralgia narcotic pain medication patient has blood pressure problems and chronic kidney disease comes in for follow-up. [facility] Medical History AAA (abdominal aortic aneurysm) Cervical nerve root compression Colonoscopy refused Hypercholesterolemia Hypertension Hypothyroid Impaired glucose tolerance Medicare annual wellness visit, initial Psoriasis Tobacco abuse Surgical History History of facial surgery H/O arthroscopy of left knee History of AAA (abdominal aortic aneurysm) repair Family History Father Hypertension CVD (cardiovascular disease) Mother CVD (cardiovascular disease) Brother No problems noted. Brother No problems noted. Daughter No problems noted. Sister No problems noted. Sister No problems noted. Sister No problems noted. Sister No problems noted. 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 How often do you have a drink containing alcohol?: Never 3. How often do you have six or more drinks on one occasion?: Never Total Score: 0 CHANDA-7 AMB Questionnaire CHANDA-7 Date CHANDA - 7 assessed: 01/06/23 Source: Developed by Drs. Bautista Lizarraga, Candace Krause, Oh Laureano and colleagues, with an educational elise from [employer]. Physical exam (Primary Care) Vital Signs: Last Vital Signs Pulse 75 07/01/23 08:38 BP 140/72 H 07/01/23 08:38 Pulse Ox 98 07/01/23 08:38 Oxygen Delivery Method Room Air 07/01/23 08:38 BMI result Body Mass Index 26.4 Tobacco/Smoking Status: Tobacco use Status Tobacco use date assessed 07/01/23 07/01/23 08:41 Patient Tobacco Use Status Current everyday Tobacco 07/01/23 08:41 Tobacco use type Cigarette 07/01/23 08:41 e-Cigarette/Vaping Use Never Used 07/01/23 08:41 Thrive Assessment: Date of Thrive Assessment Date Thrive assessed 11/07/22 07/01/23 08:41 Const General: alert; No acute distress Eyes Conjunctivae: conjunctivae normal Resp Auscultation: clear to auscultation bilaterally Cardio Rate: regular rate Rhythm: regular rhythm GI Inspection: Yes normal to inspection Extrem General: Yes normal to inspection and No edema Assessment and Plan Assessment & Plan (1) Trigeminal neuralgia pain: Code(s): G50.0 - Trigeminal neuralgia Plan: Narcotic pain meds: Is being prescribed with the understanding that these medications are potentially addictive and should be used only when absolutely necessary and must always be secured. Any remaining pills should be safely disposed off appropriately. Patient is advised that narcotics can impaired judgment and one should not drive or operate heavy machinery while taking these medications. Never share these medications with anybody and do not leave them unattended. They will not be replaced under any circumstances. (2) Tobacco abuse: Code(s): Z72.0 - Tobacco use Plan: Advised patient to stop smoking! (3) Hypertension: Code(s): I10 - Essential (primary) hypertension Qualifiers: Hypertension type: essential hypertension Qualified Code(s): I10 - Essential (primary) hypertension Plan: Continue with blood pressure medication. Decrease salt intake and exercise continue with present medication and to monitor at home (4) Folic acid deficiency: Code(s): E53.8 - Deficiency of other specified B group vitamins Plan: Resolved (5) Hypercholesterolemia: Comment: May 2017 Code(s): E78.00 - Pure hypercholesterolemia, unspecified Plan: Avoid fried foods, chicken skin, eggs, butter margarine, pastries and meat. Be it pork or beef they have a lot of cholesterol triglyceride elevated LDL goal of less than 130 and triglyceride of less than 150 (6) Impaired fasting glucose: Code(s): R73.01 - Impaired fasting glucose Plan: Decrease the amount of carbohydrate intake, pasta, bread, rice and potatoes are all sugar and that is aside from all the sweet stuff, remember that fruits are good but they are Sweet also. Medications: Refilled oxycodone-acetaminophen 10-325 mg 1-2 tabs every 6 hours PRN; 240 tabs 0RF pain G50.0 - Trigeminal neuralgia clobetasol 0.05% 1 appl topical BID 2 weeks 60 grams 0RF L40.9 - Psoriasis, unspecified Coding Level of Care Code Est Pt Level 4 (52404) Diagnoses Trigeminal neuralgia pain G50.0 Tobacco abuse Z72.0 Essential hypertension I10 Hypertension type: essential hypertension Folic acid deficiency E53.8 Hypercholesterolemia E78.00 Impaired fasting glucose R73.01
== END 2023-07-01 09:23 | disposition home or self-care (01) ==
PROVIDERS: Visit Provider Internal Medicine
DX: G50.0 Trigeminal neuralgia (principal); Z72.0 Tobacco use; I10 Essential (primary) hypertension; E53.8 Deficiency of other specified B group vitamins; E78.00 Pure hypercholesterolemia, unspecified; R73.01 Impaired fasting glucose
CPT/HCPCS: 99214

== ENCOUNTER 2023-07-31 08:34 | Outpatient (AMB) | payer MEDICARE, SELFPAY ==
[2023-07-31 08:42] VITALS: BP 142/80; PULSE 63; O2SAT 96; BMI 27.0
--- NOTE | 2023-07-31 08:42 | A.OFFPC_ITS ---
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 Allergies No Known Allergies Allergy (Verified 07/31/23 08:42) Medication List - Last Reconciled 07/31/23 by Anne-Marie Perez MD aspirin 81 mg PO DAILY atenolol 25 mg PO BID 90 days cholecalciferol (vitamin D3) 25 mcg PO DAILY clobetasol 0.05% 1 appl topical BID 2 weeks cyanocobalamin (vitamin B-12) 1,000 mcg PO DAILY diazepam (Valium) 5 mg PO BID PRN 90 days folic acid 1 mg PO DAILY levothyroxine 125 mcg PO DAILY 90 days oxycodone-acetaminophen 10-325 mg 1-2 tabs every 6 hours PRN; simvastatin 10 mg PO QPM 90 days Tobacco use date assessed: 07/31/23 Fall risk assessment: No Falls in past year Last assessed Fall Risk: 07/31/23 Dental Screening Dental Screen Date: 07/31/23 Did you have a dental visit in the last 12 months?: Yes Did you have a dental problem in the last 6 months where you did not have access to dental care?: No Was dental information given to patient?: Patient has dentist HPI med f/u HPI Details 72-year-old overweight male with a histo ry of trigeminal neuralgia on narcotic pain medication refills continues to smoke has hypertension hypercholesterolemia and impaired glucose tolerance. Patient is here for follow-up. [facility] Medical History AAA (abdominal aortic aneurysm) Cervical nerve root compression Colonoscopy refused Hypercholesterolemia Hypertension Hypothyroid Impaired glucose tolerance Medicare annual wellness visit, initial Psoriasis Tobacco abuse Surgical History History of facial surgery H/O arthroscopy of left knee History of AAA (abdominal aortic aneurysm) repair Family History Father Hypertension CVD (cardiovascular disease) Mother CVD (cardiovascular disease) Brother No problems noted. Brother No problems noted. Daughter No problems noted. Sister No problems noted. Sister No problems noted. Sister No problems noted. Sister No problems noted. 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 How often do you have a drink containing alcohol?: Never 3. How often do you have six or more drinks on one occasion?: Never Total Score: 0 CHANDA-7 AMB Questionnaire CHANDA-7 Date CHANDA - 7 assessed: 01/06/23 Source: Developed by Drs. Bautista Lizarraga, Candace Krause, Oh Laureano and colleagues, with an educational elise from [employer]. Physical exam (Primary Care) Vital Signs: Last Vital Signs Pulse 63 07/31/23 08:42 BP 142/80 H 07/31/23 08:42 Pulse Ox 96 07/31/23 08:42 Oxygen Delivery Method Room Air 07/31/23 08:42 BMI result Body Mass Index 27.0 Tobacco/Smoking Status: Tobacco use Status Tobacco use date assessed 07/31/23 07/31/23 08:49 Patient Tobacco Use Status Current everyday Tobacco 07/31/23 08:49 Tobacco use type Cigarette 07/31/23 08:49 e-Cigarette/Vaping Use Never Used 07/31/23 08:49 Thrive Assessment: Date of Thrive Assessment Date Thrive assessed 11/07/22 07/31/23 08:49 Const General: alert; No acute distress Eyes Conjunctivae: conjunctivae normal Resp Auscultation: clear to auscultation bilaterally Cardio Rate: regular rate Rhythm: regular rhythm GI Inspection: Yes normal to inspection Extrem General: Yes normal to inspection and No edema Assessment and Plan Assessment & Plan (1) Tobacco abuse: Code(s): Z72.0 - Tobacco use Plan: Patient is strongly advised to stop smoking! (2) Trigeminal neuralgia pain: Code(s): G50.0 - Trigeminal neuralgia Plan: Narcotic pain meds: Is being prescribed with the understanding that these medications are potentially addictive and should be used only when absolutely necessary and must always be secured. Any remaining pills should be safely disposed off appropriately. Patient is advised that narcotics can impaired judgment and one should not drive or operate heavy machinery while taking these medications. Never share these medications with anybody and do not leave them unattended. They will not be replaced under any circumstances. (3) CKD (chronic kidney disease) stage 3, GFR 30-59 ml/min: Code(s): N18.30 - Chronic kidney disease, stage 3 unspecified Qualifiers: Chronic kidney disease stage 3 subtype: stage 3a (GFR 45-59) Qualified Code(s): N18.31 - Chronic kidney disease, stage 3a Plan: Keep well hydrated avoid NSAIDs Medications: Refilled oxycodone-acetaminophen 10-325 mg 1-2 tabs every 6 hours PRN; 240 tabs 0RF pain G50.0 - Trigeminal neuralgia Coding Level of Care Code Est Pt Level 4 (77844) Diagnoses Tobacco abuse Z72.0 Trigeminal neuralgia pain G50.0 Stage 3a chronic kidney disease N18.31 Chronic kidney disease stage 3 subtype: stage 3a (GFR 45-59)
== END 2023-07-31 09:21 | disposition home or self-care (01) ==
PROVIDERS: Visit Provider Internal Medicine
DX: Z72.0 Tobacco use (principal); G50.0 Trigeminal neuralgia; N18.31 Chronic kidney disease, stage 3a
CPT/HCPCS: 99214

== ENCOUNTER 2023-08-31 09:50 | Outpatient (AMB) | payer MEDICARE, SELFPAY ==
[2023-08-31 09:52] VITALS: BP 156/74; PULSE 55; O2SAT 98; BMI 26.7
--- NOTE | 2023-08-31 09:52 | MHC.PC.OV ---
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 Allergies No Known Allergies Allergy (Verified 08/31/23 09:52) Medication List - Last Reconciled 08/31/23 by Anne-Marie Perez MD aspirin 81 mg PO DAILY atenolol 25 mg PO BID 90 days cholecalciferol (vitamin D3) 25 mcg PO DAILY clobetasol 0.05% 1 appl topical BID 2 weeks cyanocobalamin (vitamin B-12) 1,000 mcg PO DAILY diazepam (Valium) 5 mg PO BID PRN 90 days folic acid 1 mg PO DAILY hydrochlorothiazide 12.5 mg PO DAILY levothyroxine 125 mcg PO DAILY 90 days oxycodone-acetaminophen 10-325 mg 1-2 tabs every 6 hours PRN; simvastatin 10 mg PO QPM 90 days Tobacco use date assessed: 08/31/23 Fall risk assessment: No Falls in past year Last assessed Fall Risk: 08/31/23 Dental Screening Dental Screen Date: 08/31/23 Did you have a dental visit in the last 12 months?: Yes Did you have a dental problem in the last 6 months where you did not have access to dental care?: No Was dental information given to patient?: Patient has dentist HPI Med Review HPI Details 72-year-old overweight male smoker with trigeminal neuralgia seen on a monthly basis for refill on the narcotic pain medication. Patient has chronic kidney disease also. [facility] Medical History AAA (abdominal aortic aneurysm) Cervical nerve root compression Colonoscopy refused Hypercholesterolemia Hypertension Hypothyroid Impaired glucose tolerance Medicare annual wellness visit, initial Psoriasis Tobacco abuse Surgical History History of facial surgery H/O arthroscopy of left knee History of AAA (abdominal aortic aneurysm) repair Family History Father Hypertension CVD (cardiovascular disease) Mother CVD (cardiovascular disease) Brother No problems noted. Brother No problems noted. Daughter No problems noted. Sister No problems noted. Sister No problems noted. Sister No problems noted. Sister No problems noted. 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 Cognitive needs: No Hearing needs: No Vision needs: Yes Questionnaire Thrive Questionnaire Date Thrive assessed: 08/31/23 I am a: Patient What is your living situation today?: I have a steady place to live Within the past 12 months, did the food you bought not last and you didn't have the money to get more?: Never true Within the past 12 months, did you worry whether your food would run out before you got money to buy more?: Never true Do you have trouble paying for medicines?: No Do you have trouble getting transportation to medical appointments?: No Do you have trouble paying your heating and electricity bill?: No Do you have trouble taking care of your child, family member or friend?: No Do you have trouble with day-to-day activities such as bathing, preparing meals, shopping, managing finances, etc.?: No Are you currently unemployed and looking for a job?: No Are you interested in more education?: No Please select the resources that you would like help with: None THRIVE Score: 0 AUDIT C Alcohol Use Questionnaire (AUDIT-C) 1. How often do you have a drink containing alcohol?: Never 3. How often do you have six or more drinks on one occasion?: Never Total Score: 0 CHANDA-7 AMB Questionnaire CHANDA-7 Date CHANDA - 7 assessed: 08/31/23 Source: Developed by Drs. Bautista Lizarraga, Candace Krause, Oh Laureano and colleagues, with an educational elise from [employer]. Physical exam (Primary Care) Vital Signs: Last Vital Signs Pulse 55 08/31/23 09:52 BP 156/74 H 08/31/23 09:52 Pulse Ox 98 08/31/23 09:52 Oxygen Delivery Method Room Air 08/31/23 09:52 BMI result Body Mass Index 26.7 Tobacco/Smoking Status: Tobacco use Status Tobacco use date assessed 08/31/23 08/31/23 09:55 Patient Tobacco Use Status Current everyday Tobacco 08/31/23 09:55 Tobacco use type Cigarette 08/31/23 09:55 e-Cigarette/Vaping Use Never Used 08/31/23 09:55 Thrive Assessment: Date of Thrive Assessment Date Thrive assessed 08/31/23 08/31/23 09:55 Const General: alert; No acute distress Eyes Conjunctivae: conjunctivae normal Resp Auscultation: clear to auscultation bilaterally Cardio Rate: regular rate Rhythm: regular rhythm GI Inspection: Yes normal to inspection Extrem General: Yes normal to inspection and No edema Assessment and Plan Assessment & Plan (1) Trigeminal neuralgia pain: Code(s): G50.0 - Trigeminal neuralgia Plan: Narcotic pain meds: Is being prescribed with the understanding that these medications are potentially addictive and should be used only when absolutely necessary and must always be secured. Any remaining pills should be safely disposed off appropriately. Patient is advised that narcotics can impaired judgment and one should not drive or operate heavy machinery while taking these medications. Never share these medications with anybody and do not leave them unattended. They will not be replaced under any circumstances. (2) Hypertension: Code(s): I10 - Essential (primary) hypertension Qualifiers: Hypertension type: essential hypertension Qualified Code(s): I10 - Essential (primary) hypertension Plan: Continue with blood pressure medication. Decrease salt intake and exercise presently on atenolol 25 mg twice a day. Discussed my concerns about blood pressure being elevated still patient does get it high at home also. Will add to the medication. (3) Tobacco abuse: Code(s): Z72.0 - Tobacco use Plan: Strongly advised to stop smoking! Medications: New hydrochlorothiazide 12.5 mg PO DAILY 30 tabs 3RF I10 - Essential (primary) hypertension Refilled oxycodone-acetaminophen 10-325 mg 1-2 tabs every 6 hours PRN; 240 tabs 0RF pain G50.0 - Trigeminal neuralgia Coding Level of Care Code Est Pt Level 4 (99837) Diagnoses Trigeminal neuralgia pain G50.0 Essential hypertension I10 Hypertension type: essential hypertension Tobacco abuse Z72.0
== END 2023-08-31 10:19 | disposition home or self-care (01) ==
PROVIDERS: PCP Internal Medicine; Visit Provider Internal Medicine
DX: G50.0 Trigeminal neuralgia (principal); I10 Essential (primary) hypertension; Z72.0 Tobacco use
CPT/HCPCS: 99214

== ENCOUNTER 2023-09-29 08:15 | Outpatient (AMB) | payer MEDICARE, SELFPAY ==
[2023-09-29 08:29] VITALS: BP 150/92; PULSE 63; O2SAT 99; BMI 26.4
--- NOTE | 2023-09-29 08:29 | A.OFFPC_ITS ---
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 Allergies hydrochlorothiazide Adverse Reaction (Intermediate, Unverified 09/29/23 08:47) elevation of BP Medication List - Last Reconciled 09/29/23 by Anne-Marie Perez MD aspirin 81 mg PO DAILY atenolol 25 mg PO BID 90 days cholecalciferol (vitamin D3) 25 mcg PO DAILY clobetasol 0.05% 1 appl topical BID 2 weeks cyanocobalamin (vitamin B-12) 1,000 mcg PO DAILY diazepam (Valium) 5 mg PO BID PRN 90 days folic acid 1 mg PO DAILY hydrochlorothiazide 12.5 mg PO DAILY levothyroxine 125 mcg PO DAILY 90 days oxycodone-acetaminophen 10-325 mg 1-2 tabs every 6 hours PRN; simvastatin 10 mg PO QPM 90 days Tobacco use date assessed: 09/29/23 Fall risk assessment: No Falls in past year Last assessed Fall Risk: 09/29/23 HPI Med Review HPI Details 73-year-old overweight male with a histo ry of trigeminal neuralgia on narcotic pain medication seen on a monthly basis for refill smoker hypertension hypothyroidism chronic kidney disease generalized anxiety disorder impaired glucose tolerance coming in for follow-up. Last seen in August 31. Patient is here for follow-up. Patient checks the blood pressure at home and patient was started on hydrochlorothiazide but has noted blood pressure to be going high so has stopped it. Patient's blood pressure is still high though. [facility] Medical History AAA (abdominal aortic aneurysm) Cervical nerve root compression Colonoscopy refused Hypercholesterolemia Hypertension Hypothyroid Impaired glucose tolerance Medicare annual wellness visit, initial Psoriasis Tobacco abuse Surgical History History of facial surgery H/O arthroscopy of left knee History of AAA (abdominal aortic aneurysm) repair Family History Father Hypertension CVD (cardiovascular disease) Mother CVD (cardiovascular disease) Brother No problems noted. Brother No problems noted. Daughter No problems noted. Sister No problems noted. Sister No problems noted. Sister No problems noted. Sister No problems noted. 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 How often do you have a drink containing alcohol?: Never 3. How often do you have six or more drinks on one occasion?: Never Total Score: 0 CHNADA-7 AMB Questionnaire CHANDA-7 Date CHANDA - 7 assessed: 08/31/23 Source: Developed by Drs. Bautista Lizarraga, Candace Krause, Oh Laureano and colleagues, with an educational elise from [employer]. Physical exam (Primary Care) Vital Signs: Last Vital Signs Pulse 63 09/29/23 08:29 BP 150/92 H 09/29/23 08:29 Pulse Ox 99 09/29/23 08:29 Oxygen Delivery Method Room Air 09/29/23 08:29 BMI result Body Mass Index 26.4 Tobacco/Smoking Status: Tobacco use Status Tobacco use date assessed 09/29/23 09/29/23 08:33 Patient Tobacco Use Status Current everyday Tobacco 09/29/23 08:33 Tobacco use type Cigarette 09/29/23 08:33 e-Cigarette/Vaping Use Never Used 09/29/23 08:33 Thrive Assessment: Date of Thrive Assessment Date Thrive assessed 08/31/23 09/29/23 08:33 Const General: alert; No acute distress Eyes Conjunctivae: conjunctivae normal Resp Auscultation: clear to auscultation bilaterally Cardio Rate: regular rate Rhythm: regular rhythm GI Inspection: Yes normal to inspection Extrem General: Yes normal to inspection and No edema Assessment and Plan Assessment & Plan (1) Trigeminal neuralgia pain: Code(s): G50.0 - Trigeminal neuralgia Plan: Narcotic pain meds: Is being prescribed with the understanding that these medications are potentially addictive and should be used only when absolutely necessary and must always be secured. Any remaining pills should be safely disposed off appropriately. Patient is advised that narcotics can impaired judgment and one should not drive or operate heavy machinery while taking these medications. Never share these medications with anybody and do not leave them unattended. They will not be replaced under any circumstances. (2) Hypertension: Code(s): I10 - Essential (primary) hypertension Qualifiers: Hypertension type: essential hypertension Qualified Code(s): I10 - Essential (primary) hypertension Plan: Continue with blood pressure medication. Decrease salt intake and exercise presently on atenolol 25 mg twice a day hydrochlorothiazide 12.5 mg once a day last blood work was May 2023 continue to monitor blood pressure at home and record (3) Hypothyroid: Comment: Hyperthyroidism May 2017 Code(s): E03.9 - Hypothyroidism, unspecified Qualifiers: Hypothyroidism type: acquired Qualified Code(s): E03.9 - Hypothyroidism, unspecified Plan: Continue with the thyroid medication May 2023 last blood work (4) Hypercholesterolemia: Comment: May 2017 Code(s): E78.00 - Pure hypercholesterolemia, unspecified Plan: Avoid fried foods, chicken skin, eggs, butter margarine, pastries and meat. Be it pork or beef they have a lot of cholesterol LDL goal of less than 130 and triglyceride of less than 150 on simvastatin 10 mg at bedtime. May 2023 last blood work (5) Tobacco abuse: Code(s): Z72.0 - Tobacco use Plan: Patient is strongly advised to stop smoking! (6) CKD (chronic kidney disease) stage 3, GFR 30-59 ml/min: Code(s): N18.30 - Chronic kidney disease, stage 3 unspecified Qualifiers: Chronic kidney disease stage 3 subtype: stage 3a (GFR 45-59) Qualified Code(s): N18.31 - Chronic kidney disease, stage 3a Plan: Keep well hydrated avoid NSAIDs and will continue to monitor Medications: New amlodipine 2.5 mg PO DAILY 30 tabs 3RF I10 - Essential (primary) hypertension Refilled oxycodone-acetaminophen 10-325 mg 1-2 tabs every 6 hours PRN; 240 tabs 0RF pain G50.0 - Trigeminal neuralgia Discontinued hydrochlorothiazide Discontinued Reason: Patient Completed Course 12.5 mg PO DAILY 30 tabs 3RF I10 - Essential (primary) hypertension Coding Level of Care Code Est Pt Level 4 (09043) Diagnoses Trigeminal neuralgia pain G50.0 Essential hypertension I10 Hypertension type: essential hypertension Acquired hypothyroidism E03.9 Hypothyroidism type: acquired Hypercholesterolemia E78.00 Tobacco abuse Z72.0 Stage 3a chronic kidney disease N18.31 Chronic kidney disease stage 3 subtype: stage 3a (GFR 45-59)
== END 2023-09-29 09:02 | disposition home or self-care (01) ==
PROVIDERS: PCP Internal Medicine; Visit Provider Internal Medicine
DX: I12.9 Hypertensive chronic kidney disease with stage 1 through stage 4 chronic kidney disease, or unspecified chronic kidney disease (principal); G50.0 Trigeminal neuralgia; N18.31 Chronic kidney disease, stage 3a; E03.9 Hypothyroidism, unspecified; E78.00 Pure hypercholesterolemia, unspecified; Z72.0 Tobacco use
CPT/HCPCS: 99214

== ENCOUNTER 2023-10-29 09:39 | Outpatient (AMB) | payer MEDICARE, SELFPAY ==
[2023-10-29 09:40] VITALS: BP 128/86; PULSE 69; O2SAT 96; BMI 26.1
--- NOTE | 2023-10-29 09:40 | A.OFFPC_ITS ---
Vital Signs 10/29/23 09:40 Height 5 ft 9 in Weight 177 lb BMI 26.1 BP 128/86 Blood Pressure Location Lt brachial Position Sitting Pulse 69 Pulse Source Pulse Oximeter Pulse Oximetry (%) 96 Oxygen Delivery Method Room Air Intake Visit Reasons: Med Review Intake Note: Patient is here to follow up on medications [employer] Required: No Allergies hydrochlorothiazide Adverse Reaction (Intermediate, Verified 10/29/23 09:41) elevation of BP Medication List - Last Reconciled 10/29/23 by Anne-Marie Perez MD amlodipine 2.5 mg PO DAILY aspirin 81 mg PO DAILY atenolol 25 mg PO BID 90 days cholecalciferol (vitamin D3) 25 mcg PO DAILY clobetasol 0.05% 1 appl topical BID 2 weeks cyanocobalamin (vitamin B-12) 1,000 mcg PO DAILY diazepam (Valium) 5 mg PO BID PRN 90 days folic acid 1 mg PO DAILY levothyroxine 125 mcg PO DAILY 90 days oxycodone-acetaminophen 10-325 mg 1-2 tabs every 6 hours PRN; simvastatin 10 mg PO QPM 90 days Tobacco use date assessed: 10/29/23 Fall risk assessment: No Falls in past year Last assessed Fall Risk: 10/29/23 Dental Screening Dental Screen Date: 10/29/23 HPI Med Review HPI Details 73-year-old male smoker seen monthly for refill on the narcotic pain medication has trigeminal neuralgia pain hypertension hypothyroid hypercholesterolemia and chronic kidney disease last seen in September 2023. Noted weight loss. dentures a problem. Patient has been very much anxious with regards to problems going on in his life. Daughter is sick, now is having cognitive problems and did discuss about him getting into their household finances as he never was involved in it. Due to the cognitive problem it is important and stress this the patient. Otherwise blood pressure has been good patient has not been eating much also and the loss of weight. Need prescription for cholesterol medication in the pain medication. This was done. [facility] Medical History AAA (abdominal aortic aneurysm) Cervical nerve root compression Colonoscopy refused Hypercholesterolemia Hypertension Hypothyroid Impaired glucose tolerance Medicare annual wellness visit, initial Psoriasis Tobacco abuse Surgical History History of facial surgery H/O arthroscopy of left knee History of AAA (abdominal aortic aneurysm) repair Family History Father Hypertension CVD (cardiovascular disease) Mother CVD (cardiovascular disease) Brother No problems noted. Brother No problems noted. Daughter No problems noted. Sister No problems noted. Sister No problems noted. Sister No problems noted. Sister No problems noted. 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 How often do you have a drink containing alcohol?: Never 3. How often do you have six or more drinks on one occasion?: Never Total Score: 0 CHANDA-7 AMB Questionnaire CHANDA-7 Date CHANDA - 7 assessed: 08/31/23 Source: Developed by Drs. Bautista Lizarraga, Candace Krause, Oh Laureano and colleagues, with an educational elise from [employer]. Physical exam (Primary Care) Vital Signs: Last Vital Signs Pulse 69 10/29/23 09:40 BP 128/86 10/29/23 09:40 Pulse Ox 96 10/29/23 09:40 Oxygen Delivery Method Room Air 10/29/23 09:40 BMI result Body Mass Index 26.1 Tobacco/Smoking Status: Tobacco use Status Tobacco use date assessed 10/29/23 10/29/23 09:47 Patient Tobacco Use Status Current everyday Tobacco 10/29/23 09:47 Tobacco use type Cigarette 10/29/23 09:47 e-Cigarette/Vaping Use Never Used 10/29/23 09:47 Thrive Assessment: Date of Thrive Assessment Date Thrive assessed 08/31/23 10/29/23 09:47 Const General: alert; No acute distress Eyes Conjunctivae: conjunctivae normal Resp Auscultation: clear to auscultation bilaterally Cardio Rate: regular rate Rhythm: regular rhythm GI Inspection: Yes normal to inspection Extrem General: Yes normal to inspection and No edema Assessment and Plan Assessment & Plan (1) Tobacco abuse: Code(s): Z72.0 - Tobacco use Plan: Patient has been strongly advised to stop smoking! (2) Trigeminal neuralgia pain: Code(s): G50.0 - Trigeminal neuralgia Plan: Narcotic pain meds: Is being prescribed with the understanding that these medications are potentially addictive and should be used only when absolutely necessary and must always be secured. Any remaining pills should be safely disposed off appropriately. Patient is advised that narcotics can impaired judgment and one should not drive or operate heavy machinery while taking these medications. Never share these medications with anybody and do not leave them unattended. They will not be replaced under any circumstances. (3) Hypothyroid: Comment: Hyperthyroidism May 2017 Code(s): E03.9 - Hypothyroidism, unspecified Qualifiers: Hypothyroidism type: acquired Qualified Code(s): E03.9 - Hypothyroid ism, unspecified Plan: Continue with thyroid medication but will need some blood work (4) Generalized anxiety disorder: Code(s): F41.1 - Generalized anxiety disorder Plan: Continue with present medication Medications: Refilled simvastatin 10 mg PO QPM 90 tabs 3RF 90 days E78.00 - Pure hypercholesterolemia, unspecified oxycodone-acetaminophen 10-325 mg 1-2 tabs every 6 hours PRN; 240 tabs 0RF pain G50.0 - Trigeminal neuralgia Coding Level of Care Code Est Pt Level 4 (77606) Diagnoses Tobacco abuse Z72.0 Trigeminal neuralgia pain G50.0 Acquired hypothyroidism E03.9 Hypothyroidism type: acquired Generalized anxiety disorder F41.1
== END 2023-10-29 10:15 | disposition home or self-care (01) ==
PROVIDERS: PCP Internal Medicine; Visit Provider Internal Medicine
DX: G50.0 Trigeminal neuralgia (principal); Z72.0 Tobacco use; E03.9 Hypothyroidism, unspecified; F41.1 Generalized anxiety disorder
CPT/HCPCS: 99214

== ENCOUNTER 2023-11-30 10:30 | Outpatient (AMB) | payer MEDICARE, SELFPAY ==
[2023-11-30 10:31] VITALS: BP 130/72; PULSE 62; O2SAT 98; BMI 26.7
--- NOTE | 2023-11-30 10:31 | MHC.PC.OV ---
Vital Signs 11/30/23 10:31 Height 5 ft 9 in Weight 181 lb BMI 26.7 BP 130/72 Blood Pressure Location Lt brachial Position Sitting Pulse 62 Pulse Source Pulse Oximeter Pulse Oximetry (%) 98 Oxygen Delivery Method Room Air Intake Visit Reasons: f/u Allergies hydrochlorothiazide Adverse Reaction (Intermediate, Verified 11/30/23 10:31) elevation of BP Tobacco use date assessed: 10/29/23 Fall risk assessment: No Falls in past year Last assessed Fall Risk: 11/30/23 Dental Screening Dental Screen Date: 10/29/23 HPI f/u HPI Details 73-year-old male smoker with a history of trigeminal neuralgia pain coming in for refill on the narcotic pain medication has history of hypothyroidism and generalized anxiety disorder. Patient has been doing fine with the pain medication able to do activities of daily living. No nausea no vomiting. Patient continues to smoke and not ready to stop. [facility] Medical History AAA (abdominal aortic aneurysm) Cervical nerve root compression Colonoscopy refused Hypercholesterolemia Hypertension Hypothyroid Impaired glucose tolerance Medicare annual wellness visit, initial Psoriasis Tobacco abuse Surgical History History of facial surgery H/O arthroscopy of left knee History of AAA (abdominal aortic aneurysm) repair Family History Father Hypertension CVD (cardiovascular disease) Mother CVD (cardiovascular disease) Brother No problems noted. Brother No problems noted. Daughter No problems noted. Sister No problems noted. Sister No problems noted. Sister No problems noted. Sister No problems noted. 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 1. Little interest or pleasure in doing things: not at all 2. Feeling down, depressed, or hopeless: not at all 3. Trouble falling or staying asleep, or sleeping too much: not at all 4. Feeling tired or having little energy: not at all 5. Poor appetite or overeating: not at all 6. Feeling bad about yourself - or that you are a failure or have let yourself or your family down: not at all 7. Trouble concentrating on things, such as reading the newspaper or watching television: not at all 8. Moving or speaking so slowly that other people could have noticed. Or the opposite - being so fidgety or restless that you have been moving around a lot more than usual: not at all 9. Thoughts that you would be better off or of hurting yourself in some way: not at all Total score: 0 Depression Screening Interpretation: Negative Depression Screening Done: Yes Source: Developed by Drs. Bautista Lizarraga, Candace Krause, Oh Laureano and colleagues, with an educational elise from [employer]. Thrive Questionnaire Date Thrive assessed: 08/31/23 AUDIT C Alcohol Use Questionnaire (AUDIT-C) 1. How often do you have a drink containing alcohol?: Never 3. How often do you have six or more drinks on one occasion?: Never Total Score: 0 CHANDA-7 AMB Questionnaire CHANDA-7 Date CHANDA - 7 assessed: 11/30/23 Feeling nervous, anxious, or on edge: 0 = Not at all Not being able to stop or control worryin = Not at all Worrying too much about different things: 0 = Not at all Trouble relaxin = Not at all Being so restless that it is hard to sit still: 0 = Not at all Becoming easily annoyed or irritable: 0 = Not at all Feeling afraid as if something awful might happen: 0 = Not at all Total CHANDA-7 score (0-4 normal; 5-9 mild; 10-14 moderate; 15-21 severe): 0 Source: Developed by Drs. Bautista Lizarraga, Candace Krause, Oh Laureano and colleagues, with an educational elise from [employer]. Physical exam (Primary Care) Vital Signs: Last Vital Signs Pulse 62 11/30/23 10:31 BP 130/72 11/30/23 10:31 Pulse Ox 98 11/30/23 10:31 Oxygen Delivery Method Room Air 11/30/23 10:31 BMI result Body Mass Index 26.7 Tobacco/Smoking Status: Tobacco use Status Tobacco use date assessed 10/29/23 11/30/23 10:32 Patient Tobacco Use Status Current everyday Tobacco 11/30/23 10:32 Tobacco use type Cigarette 11/30/23 10:32 e-Cigarette/Vaping Use Never Used 11/30/23 10:32 PHQ-9: PHQ-9 Score PHQ-9: Total score 0 11/30/23 10:48 Depression Screening Interpretation: Negative Thrive Assessment: Date of Thrive Assessment Date Thrive assessed 08/31/23 11/30/23 10:32 Const General: alert; No acute distress Eyes Conjunctivae: conjunctivae normal Resp Auscultation: clear to auscultation bilaterally Cardio Rate: regular rate Rhythm: regular rhythm GI Inspection: Yes normal to inspection Extrem General: Yes normal to inspection and No edema Assessment and Plan Assessment & Plan (1) Trigeminal neuralgia pain: Code(s): G50.0 - Trigeminal neuralgia Plan: Narcotic pain meds: Is being prescribed with the understanding that these medications are potentially addictive and should be used only when absolutely necessary and must always be secured. Any remaining pills should be safely disposed off appropriately. Patient is advised that narcotics can impaired judgment and one should not drive or operate heavy machinery while taking these medications. Never share these medications with anybody and do not leave them unattended. They will not be replaced under any circumstances. (2) Tobacco abuse: Code(s): Z72.0 - Tobacco use Plan: Patient was strongly advised to stop! (3) Hypertension: Code(s): I10 - Essential (primary) hypertension Qualifiers: Hypertension type: essential hypertension Qualified Code(s): I10 - Essential (primary) hypertension Plan: Continue with blood pressure medication. Decrease salt intake and exercise on amlodipine 2.5 mg once a day atenolol 25 mg once a day (4) Generalized anxiety disorder: Code(s): F41.1 - Generalized anxiety disorder Plan: Continue with present medication (5) Hypothyroid: Comment: Hyperthyroidism May 2017 Code(s): E03.9 - Hypothyroidism, unspecified Qualifiers: Hypothyroidism type: acquired Qualified Code(s): E03.9 - Hypothyroidism, unspecified Plan: Continue with thyroid medication last test was done in May 2023. Request for blood work again Orders: Orders Complete Blood Count Auto Diff Today E03.9 - Hypothyroidism, unspecified Thyroid Stimulating Hormone Today E03.9 - Hypothyroidism, unspecified Free T4 (Free Thyroxine) Today E03.9 - Hypothyroidism, unspecified Comprehensive Met. Panel Today E03.9 - Hypothyroidism, unspecified Medications: Refilled oxycodone-acetaminophen 10-325 mg 1-2 tabs every 6 hours PRN; 240 tabs 0RF pain G50.0 - Trigeminal neuralgia Coding Level of Care Code Est Pt Level 4 (86601) Diagnoses Trigeminal neuralgia pain G50.0 Tobacco abuse Z72.0 Essential hypertension I10 Hypertension type: essential hypertension Generalized anxiety disorder F41.1 Acquired hypothyroidism E03.9 Hypothyroidism type: acquired
== END 2023-11-30 11:10 | disposition home or self-care (01) ==
LOC: HO.HMGH 10:30
PROVIDERS: PCP Internal Medicine; Visit Provider Internal Medicine
DX: G50.0 Trigeminal neuralgia (principal); Z72.0 Tobacco use; I10 Essential (primary) hypertension; F41.1 Generalized anxiety disorder; E03.9 Hypothyroidism, unspecified
CPT/HCPCS: 99214

== ENCOUNTER 2023-12-30 09:27 | Outpatient (AMB) | payer MEDICARE, SELFPAY ==
[2023-12-30 09:33] VITALS: BP 130/72; PULSE 65; O2SAT 98; BMI 26.3
--- NOTE | 2023-12-30 09:33 | MHC.PC.OV ---
Vital Signs 12/30/23 09:33 Height 5 ft 9 in Weight 178 lb BMI 26.3 BP 130/72 Blood Pressure Location Lt brachial Position Sitting Pulse 65 Pulse Source Pulse Oximeter Pulse Oximetry (%) 98 Oxygen Delivery Method Room Air Intake Visit Reasons: f/u Allergies hydrochlorothiazide Adverse Reaction (Intermediate, Verified 12/30/23 09:33) elevation of BP Medication List - Last Reconciled 12/30/23 by Anne-Marie Perez MD amlodipine 2.5 mg PO DAILY aspirin 81 mg PO DAILY atenolol 25 mg PO BID 90 days cholecalciferol (vitamin D3) 25 mcg PO DAILY clobetasol 0.05% 1 appl topical BID 2 weeks cyanocobalamin (vitamin B-12) 1,000 mcg PO DAILY diazepam (Valium) 5 mg PO BID PRN 90 days folic acid 1 mg PO DAILY levothyroxine 125 mcg PO DAILY 90 days oxycodone-acetaminophen 10-325 mg 1-2 tabs every 6 hours PRN; simvastatin 10 mg PO QPM 90 days Tobacco use date assessed: 10/29/23 Fall risk assessment: No Falls in past year Last assessed Fall Risk: 12/30/23 Dental Screening Dental Screen Date: 10/29/23 HPI f/u HPI Details 73-year-old male with a history of trigeminal neuralgia on narcotic pain medication monthly refill. He is a smoker with hypertension generalized anxiety disorder and hypothyroidism last seen in November 2023. [facility] Medical History AAA (abdominal aortic aneurysm) Cervical nerve root compression Colonoscopy refused Hypercholesterolemia Hypertension Hypothyroid Impaired glucose tolerance Medicare annual wellness visit, initial Psoriasis Tobacco abuse Surgical History History of facial surgery H/O arthroscopy of left knee History of AAA (abdominal aortic aneurysm) repair Family History Father Hypertension CVD (cardiovascular disease) Mother CVD (cardiovascular disease) Brother No problems noted. Brother No problems noted. Daughter No problems noted. Sister No problems noted. Sister No problems noted. Sister No problems noted. Sister No problems noted. 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 1. Little interest or pleasure in doing things: not at all 2. Feeling down, depressed, or hopeless: not at all 3. Trouble falling or staying asleep, or sleeping too much: not at all 4. Feeling tired or having little energy: not at all 5. Poor appetite or overeating: not at all 6. Feeling bad about yourself - or that you are a failure or have let yourself or your family down: not at all 7. Trouble concentrating on things, such as reading the newspaper or watching television: not at all 8. Moving or speaking so slowly that other people could have noticed. Or the opposite - being so fidgety or restless that you have been moving around a lot more than usual: not at all 9. Thoughts that you would be better off or of hurting yourself in some way: not at all Total score: 0 Depression Screening Interpretation: Negative Depression Screening Done: Yes Source: Developed by Drs. Bautista Lizarraga, Oh Colon and colleagues, with an educational elise from [employer]. Thrive Questionnaire Date Thrive assessed: 08/31/23 AUDIT C Alcohol Use Questionnaire (AUDIT-C) 1. How often do you have a drink containing alcohol?: Never 3. How often do you have six or more drinks on one occasion?: Never Total Score: 0 CHANDA-7 AMB Questionnaire CHANDA-7 Date CHANDA - 7 assessed: 11/30/23 Source: Developed by Drs. Bautista Lizarraga, Oh Colon and colleagues, with an educational elise from [employer]. Physical exam (Primary Care) Vital Signs: Last Vital Signs Pulse 65 12/30/23 09:33 BP 130/72 12/30/23 09:33 Pulse Ox 98 12/30/23 09:33 Oxygen Delivery Method Room Air 12/30/23 09:33 BMI result Body Mass Index 26.3 Tobacco/Smoking Status: Tobacco use Status Tobacco use date assessed 10/29/23 12/30/23 09:43 Patient Tobacco Use Status Current everyday Tobacco 12/30/23 09:43 Tobacco use type Cigarette 12/30/23 09:43 e-Cigarette/Vaping Use Never Used 12/30/23 09:43 PHQ-9: PHQ-9 Score PHQ-9: Total score 0 12/30/23 10:15 Depression Screening Interpretation: Negative Thrive Assessment: Date of Thrive Assessment Date Thrive assessed 08/31/23 12/30/23 09:43 Const General: alert; No acute distress Eyes Conjunctivae: conjunctivae normal Resp Auscultation: clear to auscultation bilaterally Cardio Rate: regular rate Rhythm: regular rhythm GI Inspection: Yes normal to inspection Extrem General: Yes normal to inspection and No edema Assessment and Plan Assessment & Plan (1) Tobacco abuse: Code(s): Z72.0 - Tobacco use Plan: Patient is strongly advised to stop smoking! (2) Hypertension: Code(s): I10 - Essential (primary) hypertension Qualifiers: Hypertension type: essential hypertension Qualified Code(s): I10 - Essential (primary) hypertension Plan: Continue with blood pressure medication. Decrease salt intake and exercise takes amlodipine 2.5 mg once a day atenolol 25 mg twice a day (3) Trigeminal neuralgia pain: Code(s): G50.0 - Trigeminal neuralgia Plan: Narcotic pain meds: Is being prescribed with the understanding that these medications are potentially addictive and should be used only when absolutely necessary and must always be secured. Any remaining pills should be safely disposed off appropriately. Patient is advised that narcotics can impaired judgment and one should not drive or operate heavy machinery while taking these medications. Never share these medications with anybody and do not leave them unattended. They will not be replaced under any circumstances. (4) CKD (chronic kidney disease) stage 3, GFR 30-59 ml/min: Code(s): N18.30 - Chronic kidney disease, stage 3 unspecified Qualifiers: Chronic kidney disease stage 3 subtype: stage 3a (GFR 45-59) Qualified Code(s): N18.31 - Chronic kidney disease, stage 3a Plan: Stable May 2023 last blood work (5) Generalized anxiety disorder: Code(s): F41.1 - Generalized anxiety disorder Plan: Stable and will refill medication Medications: Refilled oxycodone-acetaminophen 10-325 mg 1-2 tabs every 6 hours PRN; 240 tabs 0RF pain G50.0 - Trigeminal neuralgia diazepam (Valium) 5 mg PO BID 90 days PRN 90 tabs 1RF anxiety F41.1 - Generalized anxiety disorder Coding Level of Care Code Est Pt Level 4 (32016) Diagnoses Tobacco abuse Z72.0 Essential hypertension I10 Hypertension type: essential hypertension Trigeminal neuralgia pain G50.0 Stage 3a chronic kidney disease N18.31 Chronic kidney disease stage 3 subtype: stage 3a (GFR 45-59) Generalized anxiety disorder F41.1
== END 2023-12-30 10:27 | disposition home or self-care (01) ==
PROVIDERS: PCP Internal Medicine; Visit Provider Internal Medicine
DX: I12.9 Hypertensive chronic kidney disease with stage 1 through stage 4 chronic kidney disease, or unspecified chronic kidney disease (principal); N18.31 Chronic kidney disease, stage 3a; Z72.0 Tobacco use; G50.0 Trigeminal neuralgia; F41.1 Generalized anxiety disorder
CPT/HCPCS: 99214

== ENCOUNTER 2024-01-22 08:13 | Outpatient (AMB) | payer MEDICARE, SELFPAY ==
[2024-01-22 08:33] VITALS: BP 142/80; PULSE 57; O2SAT 98; BMI 26.7
--- NOTE | 2024-01-22 08:33 | MHC.PC.OV ---
Vital Signs 01/22/24 08:33 Height 5 ft 9 in Weight 181 lb 0.8 oz BMI 26.7 BP 142/80 H Blood Pressure Location Lt brachial Position Sitting Pulse 57 Pulse Source Pulse Oximeter Pulse Oximetry (%) 98 Oxygen Delivery Method Room Air Intake Visit Reasons: Med Review Allergies hydrochlorothiazide Adverse Reaction (Intermediate, Verified 01/22/24 08:37) elevation of BP Medication List - Last Reconciled 01/22/24 by Anne-Marie Perez MD amlodipine 2.5 mg PO DAILY aspirin 81 mg PO DAILY atenolol 25 mg PO BID 90 days cholecalciferol (vitamin D3) 25 mcg PO DAILY clobetasol 0.05% 1 appl topical BID 2 weeks cyanocobalamin (vitamin B-12) 1,000 mcg PO DAILY diazepam (Valium) 5 mg PO BID PRN 90 days folic acid 1 mg PO DAILY levothyroxine 125 mcg PO DAILY 90 days oxycodone-acetaminophen 10-325 mg 1-2 tabs every 6 hours PRN; simvastatin 10 mg PO QPM 90 days Tobacco use date assessed: 10/29/23 Fall risk assessment: No Falls in past year Last assessed Fall Risk: 01/22/24 Dental Screening Dental Screen Date: 10/29/23 HPI Med Review HPI Details 73 year old male smoker with trigeminal neuralgia on narcotic pain med - here for refill . CKD last seen in 12/30/2023 coming in today for follow up.noted bp elevated [facility] Medical History AAA (abdominal aortic aneurysm) Cervical nerve root compression Colonoscopy refused Hypercholesterolemia Hypertension Hypothyroid Impaired glucose tolerance Medicare annual wellness visit, initial Psoriasis Tobacco abuse Surgical History History of facial surgery H/O arthroscopy of left knee History of AAA (abdominal aortic aneurysm) repair Family History Father Hypertension CVD (cardiovascular disease) Mother CVD (cardiovascular disease) Brother No problems noted. Brother No problems noted. Daughter No problems noted. Sister No problems noted. Sister No problems noted. Sister No problems noted. Sister No problems noted. 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 How often do you have a drink containing alcohol?: Never 3. How often do you have six or more drinks on one occasion?: Never Total Score: 0 CHANDA-7 AMB Questionnaire CHANDA-7 Date CHANDA - 7 assessed: 11/30/23 Source: Developed by Drs. Bautista Lizarraga, Candace Krause, Oh Laureano and colleagues, with an educational elise from [email or web address]. Physical exam (Primary Care) Vital Signs: Last Vital Signs Pulse 57 01/22/24 08:33 BP 142/80 H 01/22/24 08:33 Pulse Ox 98 01/22/24 08:33 Oxygen Delivery Method Room Air 01/22/24 08:33 BMI result Body Mass Index 26.7 Tobacco/Smoking Status: Tobacco use Status Tobacco use date assessed 10/29/23 12/30/23 09:43 Patient Tobacco Use Status Current everyday Tobacco 12/30/23 09:43 Tobacco use type Cigarette 12/30/23 09:43 e-Cigarette/Vaping Use Never Used 12/30/23 09:43 Thrive Assessment: Date of Thrive Assessment Date Thrive assessed 08/31/23 12/30/23 09:43 Const General: alert; No acute distress Eyes Conjunctivae: conjunctivae normal Resp Auscultation: clear to auscultation bilaterally Cardio Rate: regular rate Rhythm: regular rhythm GI Inspection: Yes normal to inspection Extrem General: Yes normal to inspection and No edema Assessment and Plan Assessment & Plan (1) Trigeminal neuralgia pain: Code(s): G50.0 - Trigeminal neuralgia Plan: Narcotic pain meds: Is being prescribed with the understanding that these medications are potentially addictive and should be used only when absolutely necessary and must always be secured. Any remaining pills should be safely disposed off appropriately. Patient is advised that narcotics can impaired judgment and one should not drive or operate heavy machinery while taking these medications. Never share these medications with anybody and do not leave them unattended. They will not be replaced under any circumstances. (2) Tobacco abuse: Code(s): Z72.0 - Tobacco use Plan: Stongly advised to stop!! (3) Generalized anxiety disorder: Code(s): F41.1 - Generalized anxiety disorder Plan: continue with present med and decline referral for counselling (4) Hypertension: Code(s): I10 - Essential (primary) hypertension Qualifiers: Hypertension type: essential hypertension Qualified Code(s): I10 - Essential (primary) hypertension Plan: BP elevated today on amlodipine and atenolol. Continue with blood pressure medication. Decrease salt intake and exercise (5) Hypothyroid: Comment: Hyperthyroidism May 2017 Code(s): E03.9 - Hypothyroidism, unspecified Qualifiers: Hypothyroidism type: acquired Qualified Code(s): E03.9 - Hypothyroidism, unspecified Plan: refill done Medications: Refilled oxycodone-acetaminophen 10-325 mg 1-2 tabs every 6 hours PRN; 240 tabs 0RF pain G50.0 - Trigeminal neuralgia levothyroxine Except thursday tabs 1.5 tabs 125 mcg PO DAILY 90 days 97 tabs 3RF E03.9 - Hypothyroidism, unspecified Coding Level of Care Code Est Pt Level 4 (05158) Diagnoses Trigeminal neuralgia pain G50.0 Tobacco abuse Z72.0 Generalized anxiety disorder F41.1 Essential hypertension I10 Hypertension type: essential hypertension Acquired hypothyroidism E03.9 Hypothyroidism type: acquired
== END 2024-01-22 08:50 | disposition home or self-care (01) ==
PROVIDERS: PCP Internal Medicine; Visit Provider Internal Medicine
DX: G50.0 Trigeminal neuralgia (principal); Z72.0 Tobacco use; F41.1 Generalized anxiety disorder; I10 Essential (primary) hypertension; E03.9 Hypothyroidism, unspecified
CPT/HCPCS: 99214

== ENCOUNTER 2024-02-26 09:48 | Outpatient (AMB) | payer MEDICARE, SELFPAY ==
--- NOTE | 2024-02-26 09:52 | MHC.PC.OV ---
Vital Signs 02/26/24 09:54 Height 5 ft 9 in Weight 186 lb 0.4 oz BMI 27.5 BP 144/70 H Blood Pressure Location Lt brachial Position Sitting Pulse 80 Pulse Source Pulse Oximeter Pulse Oximetry (%) 96 Oxygen Delivery Method Room Air Intake Visit Reasons: Med Review Allergies hydrochlorothiazide Adverse Reaction (Intermediate, Verified 02/26/24 09:57) elevation of BP Tobacco use date assessed: 10/29/23 Fall risk assessment: No Falls in past year Last assessed Fall Risk: 02/26/24 Dental Screening Dental Screen Date: 10/29/23 HPI Med Review HPI Details 73-year-old male with trigeminal neuralgia on narcotic pain medication is a smoker having hypertension hypothyroidism comes in for follow-up monthly. [facility] Medical History AAA (abdominal aortic aneurysm) Cervical nerve root compression Colonoscopy refused Hypercholesterolemia Hypertension Hypothyroid Impaired glucose tolerance Medicare annual wellness visit, initial Psoriasis Tobacco abuse Surgical History History of facial surgery H/O arthroscopy of left knee History of AAA (abdominal aortic aneurysm) repair Family History Father Hypertension CVD (cardiovascular disease) Mother CVD (cardiovascular disease) Brother No problems noted. Brother No problems noted. Daughter No problems noted. Sister No problems noted. Sister No problems noted. Sister No problems noted. Sister No problems noted. 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 1. Little interest or pleasure in doing things: not at all 2. Feeling down, depressed, or hopeless: not at all 3. Trouble falling or staying asleep, or sleeping too much: not at all 4. Feeling tired or having little energy: not at all 5. Poor appetite or overeating: not at all 6. Feeling bad about yourself - or that you are a failure or have let yourself or your family down: not at all 7. Trouble concentrating on things, such as reading the newspaper or watching television: not at all 8. Moving or speaking so slowly that other people could have noticed. Or the opposite - being so fidgety or restless that you have been moving around a lot more than usual: not at all 9. Thoughts that you would be better off or of hurting yourself in some way: not at all Total score: 0 Depression Screening Interpretation: Negative Depression Screening Done: Yes Source: Developed by Drs. Bautista Lizarraga, Candace Krause, Oh Laureano and colleagues, with an educational elise from [employer]. Thrive Questionnaire Date Thrive assessed: 08/31/23 AUDIT C Alcohol Use Questionnaire (AUDIT-C) 1. How often do you have a drink containing alcohol?: Never 3. How often do you have six or more drinks on one occasion?: Never Total Score: 0 CHANDA-7 AMB Questionnaire CHANDA-7 Date CHANDA - 7 assessed: 11/30/23 Source: Developed by Drs. Bautista Lizarraga, Candace Krause, Oh Laureano and colleagues, with an educational elise from [employer]. Physical exam (Primary Care) Vital Signs: Last Vital Signs Pulse 80 02/26/24 09:54 BP 144/70 H 02/26/24 09:54 Pulse Ox 96 02/26/24 09:54 Oxygen Delivery Method Room Air 02/26/24 09:54 BMI result Body Mass Index 27.5 Tobacco/Smoking Status: Tobacco use Status Tobacco use date assessed 10/29/23 02/26/24 09:53 Patient Tobacco Use Status Current everyday Tobacco 02/26/24 09:53 Tobacco use type Cigarette 02/26/24 09:53 e-Cigarette/Vaping Use Never Used 02/26/24 09:53 PHQ-9: PHQ-9 Score PHQ-9: Total score 0 02/26/24 09:57 Depression Screening Interpretation: Negative Thrive Assessment: Date of Thrive Assessment Date Thrive assessed 08/31/23 02/26/24 09:53 Const General: alert; No acute distress Eyes Conjunctivae: conjunctivae normal Resp Auscultation: clear to auscultation bilaterally Cardio Rate: regular rate Rhythm: regular rhythm GI Inspection: Yes normal to inspection Extrem General: Yes normal to inspection and No edema Assessment and Plan Assessment & Plan (1) Trigeminal neuralgia pain: Code(s): G50.0 - Trigeminal neuralgia Plan: Narcotic pain meds: Is being prescribed with the understanding that these medications are potentially addictive and should be used only when absolutely necessary and must always be secured. Any remaining pills should be safely disposed off appropriately. Patient is advised that narcotics can impaired judgment and one should not drive or operate heavy machinery while taking these medications. Never share these medications with anybody and do not leave them unattended. They will not be replaced under any circumstances. (2) Tobacco abuse: Code(s): Z72.0 - Tobacco use Plan: Strongly advised to stop! (3) Hypertension: Code(s): I10 - Essential (primary) hypertension Qualifiers: Hypertension type: essential hypertension Qualified Code(s): I10 - Essential (primary) hypertension Plan: Continue with blood pressure medication. Decrease salt intake and exercise on amlodipine 2.5 mg once a day atenolol 25 mg twice a day Medications: Refilled oxycodone-acetaminophen 10-325 mg 1-2 tabs every 6 hours PRN; 240 tabs 0RF pain G50.0 - Trigeminal neuralgia clobetasol 0.05% 1 appl topical BID 2 weeks 60 grams 0RF L40.9 - Psoriasis, unspecified Coding Level of Care Code Est Pt Level 4 (67024) Diagnoses Trigeminal neuralgia pain G50.0 Tobacco abuse Z72.0 Essential hypertension I10 Hypertension type: essential hypertension
[2024-02-26 09:54] VITALS: BP 144/70; PULSE 80; O2SAT 96; BMI 27.5
== END 2024-02-26 10:33 | disposition home or self-care (01) ==
PROVIDERS: PCP Internal Medicine; Visit Provider Internal Medicine
DX: G50.0 Trigeminal neuralgia (principal); Z72.0 Tobacco use; I10 Essential (primary) hypertension
CPT/HCPCS: 99214

== ENCOUNTER 2024-03-29 11:02 | Outpatient (AMB) | payer MEDICARE, SELFPAY ==
[2024-03-29 11:17] VITALS: BP 114/78; PULSE 59; O2SAT 96; BMI 27.7
--- NOTE | 2024-03-29 11:17 | MHC.PC.OV ---
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: No Accompanied by: Self / Same As Patient Allergies hydrochlorothiazide Adverse Reaction (Intermediate, Verified 03/29/24 11:17) elevation of BP Tobacco use date assessed: 03/29/24 Fall risk assessment: No Falls in past year Last assessed Fall Risk: 03/29/24 Dental Screening Dental Screen Date: 03/29/24 Did you have a dental visit in the last 12 months?: No Did you have a dental problem in the last 6 months where you did not have access to dental care?: No Was dental information given to patient?: No HPI Med Management HPI Details 73-year-old male smoker with a history of trigeminal neuralgia on narcotic pain medication coming in on a monthly basis for refill. Patient has history of hypothyroidism hypercholesterolemia hypertension chronic kidney disease generalized anxiety disorder and impaired glucose tolerance. Last seen last month. Patient's last blood work was done in 05/29/2023. Patient is not ready to stop smoking it. [facility] Medical History AAA (abdominal aortic aneurysm) Cervical nerve root compression Colonoscopy refused Hypercholesterolemia Hypertension Hypothyroid Impaired glucose tolerance Medicare annual wellness visit, initial Psoriasis Tobacco abuse Surgical History History of facial surgery H/O arthroscopy of left knee History of AAA (abdominal aortic aneurysm) repair Family History Father Hypertension CVD (cardiovascular disease) Mother CVD (cardiovascular disease) Brother No problems noted. Brother No problems noted. Daughter No problems noted. Sister No problems noted. Sister No problems noted. Sister No problems noted. Sister No problems noted. 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 1. Little interest or pleasure in doing things: not at all 2. Feeling down, depressed, or hopeless: not at all 3. Trouble falling or staying asleep, or sleeping too much: not at all 4. Feeling tired or having little energy: not at all 5. Poor appetite or overeating: not at all 6. Feeling bad about yourself - or that you are a failure or have let yourself or your family down: not at all 7. Trouble concentrating on things, such as reading the newspaper or watching television: not at all 8. Moving or speaking so slowly that other people could have noticed. Or the opposite - being so fidgety or restless that you have been moving around a lot more than usual: not at all 9. Thoughts that you would be better off or of hurting yourself in some way: not at all Total score: 0 Depression Screening Interpretation: Negative Depression Screening Done: Yes Source: Developed by Drs. Bautista Lizarraga, Candace Krause, Oh Laureano and colleagues, with an educational elise from [employer]. Thrive Questionnaire Date Thrive assessed: 03/29/24 I am a: Patient What is your living situation today?: I have a steady place to live Within the past 12 months, did the food you bought not last and you didn't have the money to get more?: Never true Within the past 12 months, did you worry whether your food would run out before you got money to buy more?: Never true Do you have trouble paying for medicines?: No Do you have trouble getting transportation to medical appointments?: No Do you have trouble paying your heating and electricity bill?: No Do you have trouble taking care of your child, family member or friend?: No Do you have trouble with day-to-day activities such as bathing, preparing meals, shopping, managing finances, etc.?: No Are you currently unemployed and looking for a job?: No Are you interested in more education?: No Please select the resources that you would like help with: None Currently or been in a relationship where the following occur: No concerns reported THRIVE Score: 0 AUDIT C Alcohol Use Questionnaire (AUDIT-C) 1. How often do you have a drink containing alcohol?: Never 3. How often do you have six or more drinks on one occasion?: Never Total Score: 0 CHANDA-7 AMB Questionnaire CHANDA-7 Date CHANDA - 7 assessed: 03/29/24 Feeling nervous, anxious, or on edge: 0 = Not at all Not being able to stop or control worryin = Not at all Worrying too much about different things: 0 = Not at all Trouble relaxin = Not at all Being so restless that it is hard to sit still: 0 = Not at all Becoming easily annoyed or irritable: 0 = Not at all Feeling afraid as if something awful might happen: 0 = Not at all Total CHANDA-7 score (0-4 normal; 5-9 mild; 10-14 moderate; 15-21 severe): 0 Source: Developed by Drs. Bautista Lizarraga, Candace Krause, Oh Laureano and colleagues, with an educational elise from [employer]. Physical exam (Primary Care) Vital Signs: Last Vital Signs Pulse 59 03/29/24 11:17 BP 114/78 03/29/24 11:17 Pulse Ox 96 03/29/24 11:17 Oxygen Delivery Method Room Air 03/29/24 11:17 BMI result Body Mass Index 27.7 Tobacco/Smoking Status: Tobacco use Status Tobacco use date assessed 03/29/24 03/29/24 11:23 Patient Tobacco Use Status Current everyday Tobacco 03/29/24 11:23 Tobacco use type Cigarette 03/29/24 11:23 e-Cigarette/Vaping Use Never Used 03/29/24 11:23 PHQ-9: PHQ-9 Score PHQ-9: Total score 0 03/29/24 11:23 Depression Screening Interpretation: Negative Thrive Assessment: Date of Thrive Assessment Date Thrive assessed 03/29/24 03/29/24 11:23 Currently or been in a relationship where the following occur: No concerns reported Const General: alert; No acute distress Eyes Conjunctivae: conjunctivae normal Resp Auscultation: clear to auscultation bilaterally Cardio Rate: regular rate Rhythm: regular rhythm GI Inspection: Yes normal to inspection Extrem General: Yes normal to inspection and No edema Assessment and Plan Assessment & Plan (1) Trigeminal neuralgia pain: Code(s): G50.0 - Trigeminal neuralgia Plan: Narcotic pain meds: Is being prescribed with the understanding that these medications are potentially addictive and should be used only when absolutely necessary and must always be secured. Any remaining pills should be safely disposed off appropriately. Patient is advised that narcotics can impaired judgment and one should not drive or operate heavy machinery while taking these medications. Never share these medications with anybody and do not leave them unattended. They will not be replaced under any circumstances. (2) Tobacco abuse: Code(s): Z72.0 - Tobacco use Plan: Patient is strongly advised to stop smoking! (3) Hypertension: Code(s): I10 - Essential (primary) hypertension Qualifiers: Hypertension type: essential hypertension Qualified Code(s): I10 - Essential (primary) hypertension Plan: Continue with blood pressure medication. Decrease salt intake and exercise on atenolol 25 mg twice a day and amlodipine 2.5 mg once a day (4) CKD (chronic kidney disease) stage 3, GFR 30-59 ml/min: Code(s): N18.30 - Chronic kidney disease, stage 3 unspecified Qualifiers: Chronic kidney disease stage 3 subtype: stage 3a (GFR 45-59) Qualified Code(s): N18.31 - Chronic kidney disease, stage 3a Plan: Keep well hydrated, avoid NSAIDs (5) Epidermoid cyst of hand: Code(s): L72.0 - Epidermal cyst Plan: Reassurance Medications: Refilled oxycodone-acetaminophen 10-325 mg 1-2 tabs every 6 hours PRN; 240 tabs 0RF pain G50.0 - Trigeminal neuralgia Coding Level of Care Code Est Pt Level 4 (88414) Diagnoses Trigeminal neuralgia pain G50.0 Tobacco abuse Z72.0 Essential hypertension I10 Hypertension type: essential hypertension Stage 3a chronic kidney disease N18.31 Chronic kidney disease stage 3 subtype: stage 3a (GFR 45-59) Epidermoid cyst of hand L72.0
== END 2024-03-29 11:59 | disposition home or self-care (01) ==
PROVIDERS: PCP Internal Medicine; Visit Provider Internal Medicine
DX: I12.9 Hypertensive chronic kidney disease with stage 1 through stage 4 chronic kidney disease, or unspecified chronic kidney disease (principal); N18.31 Chronic kidney disease, stage 3a; G50.0 Trigeminal neuralgia; Z72.0 Tobacco use; L72.0 Epidermal cyst
CPT/HCPCS: 99214

== ENCOUNTER 2024-04-18 08:19 | Outpatient (REF) | payer MEDICARE, SELFPAY ==
[2024-04-18 09:32] LABS: Basophils Percent Auto 0.6 % (0-2); Eosinophils Percent Auto 0.2 % (0-4); Hematocrit 40.1 % (42.0-52.0); Imm Gran Abs Auto 0.02 X10*3/uL (0.00-0.03); Imm Gran Pct Auto 0.3 % (0.0-0.4); MANUAL DIFF FLAG NO; Mean Corpuscular HGB Conc 34.9 g/dl (31.0-36.0); Mean Corpuscular Hemoglobin 31.5 pg (27.0-33.0); Mean Corpuscular Volume 90.3 fL (80.0-98.0); Mean Platelet Volume 8.9 fL (9.4-12.4); Monocytes Absolute Auto 0.5 X10*3/uL (0.1-1.2); Monocytes Percent Auto 8.5 % (2-11); Neutrophils Absolute Auto 3.8 x10*3/uL (2.0-8.3); Neutrophils Percent Auto 59.4 % (45-73); Platelet Count 164 X10*3/uL (160-400); Red Blood Count 4.44 X10*6/uL (4.60-5.80); Red Cell Distribution Width 12.7 % (11.0-16.0); White Blood Count 6.4 X10*3/uL (4.8-10.8)
[2024-04-18 10:05] LABS: Alanine Aminotransferase 11 U/L (0-40); Albumin Level 4.2 g/dL (3.5-5.0); Alkaline Phosphatase 46 U/L (39-117); Anion Gap 12 (12-20); Aspartate Amino Transferase 14 U/L (5-37); Blood Urea Nitrogen 11 mg/dL (9-16); Calcium 9.9 mg/dL (8.4-10.2); Carbon Dioxide 26 mmol/L (22-29); Chloride 109 mmol/L (96-108); Estimated Glomerular Filt Rate 52; Glucose Random 98 mg/dL (60-115); Potassium 3.8 mmol/L (3.3-5.1); Sodium 143 mmol/L (135-145); Total Protein 6.8 g/dL (6.5-8.0)
[2024-04-18 10:28] LABS: Free T4 (Free Thyroxine) 1.22 ng/dL (0.71-1.85); Thyroid Stimulating Hormone 1.62 uIU/mL (0.32-4.0)
== END 2024-04-18 08:20 | disposition home or self-care (01) ==
LOC: HO.LAB 08:19
PROVIDERS: PCP Internal Medicine; Visit Provider Internal Medicine
DX: E03.9 Hypothyroidism, unspecified (principal)
CPT/HCPCS: 36415; 80053; 84439; 84443; 85025

== ENCOUNTER 2024-04-26 11:00 | Outpatient (AMB) | payer MEDICARE, SELFPAY ==
[2024-04-26 11:01] VITALS: BP 144/82; PULSE 68; O2SAT 95; BMI 27.6
--- NOTE | 2024-04-26 11:01 | A.OFFPC_ITS ---
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 Patient also had blood work done has a history of hypertension hypothyroidism chronic kidney disease. [facility] Medical History AAA (abdominal aortic aneurysm) Cervical nerve root compression Colonoscopy refused Hypercholesterolemia Hypertension Hypothyroid Impaired glucose tolerance Medicare annual wellness visit, initial Psoriasis Tobacco abuse Surgical History History of facial surgery H/O arthroscopy of left knee History of AAA (abdominal aortic aneurysm) repair Family History Father Hypertension CVD (cardiovascular disease) Mother CVD (cardiovascular disease) Brother No problems noted. Brother No problems noted. Daughter No problems noted. Sister No problems noted. Sister No problems noted. Sister No problems noted. Sister No problems noted. 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 1. Little interest or pleasure in doing things: not at all 2. Feeling down, depressed, or hopeless: not at all 3. Trouble falling or staying asleep, or sleeping too much: not at all 4. Feeling tired or having little energy: not at all 5. Poor appetite or overeating: not at all 6. Feeling bad about yourself - or that you are a failure or have let yourself or your family down: not at all 7. Trouble concentrating on things, such as reading the newspaper or watching television: not at all 8. Moving or speaking so slowly that other people could have noticed. Or the opposite - being so fidgety or restless that you have been moving around a lot more than usual: not at all 9. Thoughts that you would be better off or of hurting yourself in some way: not at all Total score: 0 Depression Screening Interpretation: Negative Depression Screening Done: Yes Source: Developed by Drs. Bautista Lizarraga, Candace Krause, Oh Laureano and colleagues, with an educational elise from [employer]. Thrive Questionnaire Date Thrive assessed: 03/29/24 Are you currently unemployed and looking for a job?: No AUDIT C Alcohol Use Questionnaire (AUDIT-C) 1. How often do you have a drink containing alcohol?: Never 3. How often do you have six or more drinks on one occasion?: Never Total Score: 0 CHANDA-7 AMB Questionnaire CHANDA-7 Date CHANDA - 7 assessed: 03/29/24 Source: Developed by Drs. Bautista Lizarraga, Candace Krause, Oh Laureano and colleagues, with an educational elise from [employer]. Physical exam (Primary Care) Vital Signs: Last Vital Signs Pulse 68 04/26/24 11:01 BP 144/82 H 04/26/24 11:01 Pulse Ox 95 04/26/24 11:01 Oxygen Delivery Method Room Air 04/26/24 11:01 BMI result Body Mass Index 27.6 Tobacco/Smoking Status: Tobacco use Status Tobacco use date assessed 03/29/24 04/26/24 11:07 Patient Tobacco Use Status Current everyday Tobacco 04/26/24 11:07 Tobacco use type Cigarette 04/26/24 11:07 e-Cigarette/Vaping Use Never Used 04/26/24 11:07 PHQ-9: PHQ-9 Score PHQ-9: Total score 0 04/26/24 11:07 Depression Screening Interpretation: Negative Thrive Assessment: Date of Thrive Assessment Date Thrive assessed 03/29/24 04/26/24 11:07 Const General: alert; No acute distress Eyes Conjunctivae: conjunctivae normal Resp Auscultation: clear to auscultation bilaterally Cardio Rate: regular rate Rhythm: regular rhythm GI Inspection: Yes normal to inspection Extrem General: Yes normal to inspection and No edema Assessment and Plan Assessment & Plan (1) Tobacco abuse: Code(s): Z72.0 - Tobacco use Plan: Patient is strongly advised to stop smoking! (2) Hypothyroid: Comment: Hyperthyroidism May 2017 Code(s): E03.9 - Hypothyroidism, unspecified Qualifiers: Hypothyroidism type: acquired Qualified Code(s): E03.9 - Hypothyroidism, unspecified Plan: Blood work done normal TSH continue with present dose (3) Hypertension: Code(s): I10 - Essential (primary) hypertension Qualifiers: Hypertension type: essential hypertension Qualified Code(s): I10 - Essential (primary) hypertension Plan: Continue with blood pressure medication. Decrease salt intake and exercise patient is on atenolol 25 mg twice a day amlodipine 2.5 mg once a day. (4) Trigeminal neuralgia pain: Code(s): G50.0 - Trigeminal neuralgia Plan: Narcotic pain meds: Is being prescribed with the understanding that these medications are potentially addictive and should be used only when absolutely necessary and must always be secured. Any remaining pills should be safely disposed off appropriately. Patient is advised that narcotics can impaired judgment and one should not drive or operate heavy machinery while taking these medications. Never share these medications with anybody and do not leave them unattended. They will not be replaced under any circumstances. Medications: Refilled oxycodone-acetaminophen 10-325 mg 1-2 tabs every 6 hours PRN; 240 tabs 0RF pain G50.0 - Trigeminal neuralgia Coding Level of Care Code Est Pt Level 4 (84134) Diagnoses Tobacco abuse Z72.0 Acquired hypothyroidism E03.9 Hypothyroidism type: acquired Essential hypertension I10 Hypertension type: essential hypertension Trigeminal neuralgia pain G50.0
== END 2024-04-26 11:56 | disposition home or self-care (01) ==
PROVIDERS: PCP Internal Medicine; Visit Provider Internal Medicine
DX: Z72.0 Tobacco use (principal); E03.9 Hypothyroidism, unspecified; I10 Essential (primary) hypertension; G50.0 Trigeminal neuralgia

== ENCOUNTER → 2024-04-26 11:00 | Outpatient (BNVA) | payer MEDICARE, SELFPAY | PROVIDERS: PCP Internal Medicine; Visit Provider Internal Medicine | DX: G50.0 Trigeminal neuralgia (principal); E03.9 Hypothyroidism, unspecified; I10 Essential (primary) hypertension; Z72.0 Tobacco use; Z71.6 Tobacco abuse counseling; Z79.899 Other long term (current) drug therapy | CPT/HCPCS: 99212 ==

== ENCOUNTER 2024-06-03 14:33 | Outpatient (AMB) | payer MEDICARE, SELFPAY ==
--- NOTE | 2024-06-03 14:34 | MHC.PC.OV ---
Intake Visit Reasons: COVID-19 Positive Referral Specialist Required: No Accompanied by: Self / Same As Patient Allergies hydrochlorothiazide Adverse Reaction (Intermediate, Verified 06/03/24 14:34) elevation of BP Tobacco use date assessed: 03/29/24 Dental Screening Dental Screen Date: 03/29/24 HPI COVID-19 Positive HPI Details 73-year-old male smoker with hypothyroidism hypertension and trigeminal neuralgia calling in for an acute problem. had this feels congested and cough and diziness check today positive [facility] Medical History AAA (abdominal aortic aneurysm) Cervical nerve root compression Colonoscopy refused Hypercholesterolemia Hypertension Hypothyroid Impaired glucose tolerance Medicare annual wellness visit, initial Psoriasis Tobacco abuse Surgical History History of facial surgery H/O arthroscopy of left knee History of AAA (abdominal aortic aneurysm) repair Family History Father Hypertension CVD (cardiovascular disease) Mother CVD (cardiovascular disease) Brother No problems noted. Brother No problems noted. Daughter No problems noted. Sister No problems noted. Sister No problems noted. Sister No problems noted. Sister No problems noted. 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 Bautista Lizarraga, Candace Krause, Oh Laurenao and colleagues, with an educational elise from [employer]. Physical exam (Primary Care) Tobacco/Smoking Status: Tobacco use Status Tobacco use date assessed 03/29/24 06/03/24 14:35 Patient Tobacco Use Status Current everyday Tobacco 06/03/24 14:35 Tobacco use type Cigarette 06/03/24 14:35 e-Cigarette/Vaping Use Never Used 06/03/24 14:35 Thrive Assessment: Date of Thrive Assessment Date Thrive assessed 03/29/24 06/03/24 14:35 Telehealth Telehealth Telehealth Platform: Telephone Location of provider rendering services: practice address Location of patient: address on file Patient Identification confirmed using: Name, : Yes Telehealth method: video Patient verbally consented to treatment: Yes Patient verbally consented to billing insurance company: Yes Patient informed of any privacy concerns related to visit: Yes Minutes spent on Phone/Video with Pt.: 15 Coding Level of Care Code Tele Est Pt Level 3 (43964) Diagnoses COVID-19 virus infection U07.1 Assessment & Plan Assessment & Plan (1) COVID-19 virus infection: Comment: June 03/2024 Code(s): U07.1 - COVID-19 Category: Medical Plan: For the sore throat can take Cepacol lozenges, discussed about Delsym to help with dry cough so she can rest and advised to increase oral fluids. Patient also can take Tylenol for chills and fever. Antiviral prescription sent in advised to hold simvastatin and decrease the oxycodone does as this medication interacts. Medications: New nirmatrelvir-ritonavir 150-100 mg (Paxlovid) PO PER PKG DIR nirmatrelvit 150 mg with Ritonavir 100 mg BID 5 days 20 tabs 0RF U07.1 - COVID-19
== END 2024-06-03 17:10 | disposition home or self-care (01) ==
LOC: HO.HMCH 14:33
PROVIDERS: PCP Internal Medicine; Visit Provider Internal Medicine
DX: U07.1 COVID-19 (principal)

== ENCOUNTER → 2024-06-03 14:33 | Outpatient (BNVA) | payer MEDICARE, SELFPAY | PROVIDERS: PCP Internal Medicine; Visit Provider Internal Medicine ==

== ENCOUNTER 2024-07-21 08:23 | Outpatient (AMB) | payer MEDICARE, SELFPAY ==
--- NOTE | 2024-07-21 08:36 | MHC.PC.OV ---
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 Accompanied by: Self / Same As Patient Allergies hydrochlorothiazide Adverse Reaction (Intermediate, Verified 07/21/24 08:37) elevation of BP Medication List - Last Reconciled 07/21/24 by Charmiane Conti PA-C amlodipine 2.5 mg PO DAILY aspirin 81 mg PO DAILY atenolol 25 mg PO BID 90 days cholecalciferol (vitamin D3) 25 mcg PO DAILY clobetasol 0.05% 1 appl topical BID 2 weeks cyanocobalamin (vitamin B-12) 1,000 mcg PO DAILY diazepam (Valium) 5 mg PO BID PRN 90 days folic acid 1 mg PO DAILY levothyroxine 125 mcg PO DAILY 90 days nirmatrelvir-ritonavir 150-100 mg (Paxlovid) PO PER PKG DIR nirmatrelvit 150 mg with Ritonavir 100 mg BID 5 days oxycodone-acetaminophen 10-325 mg 1-2 tabs every 6 hours PRN; simvastatin 10 mg PO QPM 90 days Tobacco use date assessed: 07/21/24 Fall risk assessment: No Falls in past year Last assessed Fall Risk: 07/21/24 Dental Screening Dental Screen Date: 07/21/24 Did you have a dental visit in the last 12 months?: No Did you have a dental problem in the last 6 months where you did not have access to dental care?: No Was dental information given to patient?: No HPI trigeminal neuralgia/ Med Management HPI Details 73-year-old male with past medical history of hypothyroidism, hypertension and trigeminal neuralgia last seen by Dr. Perez May 2024 coming in for follow up.? Today he tells us he is feeling much better since having COVID-19 and his symptoms have mostly resolved. He states he does still wake up in the morning with congestion that typically resolves throughout the day. He does also mentioned this morning he woke up feeling ?jittery? as well as having numbness and tingling in bilateral arms and having chest tightness. Patient does report occasional heart racing but feels okay now. He also mentions he has had less of his appetite lately. [facility] Medical History Medicare annual wellness visit, initial Colonoscopy refused AAA (abdominal aortic aneurysm) Impaired glucose tolerance Cervical nerve root compression Psoriasis Hypertension Hypothyroid Hypercholesterolemia Tobacco abuse Surgical History History of facial surgery H/O arthroscopy of left knee History of AAA (abdominal aortic aneurysm) repair Family History Father Hypertension CVD (cardiovascular disease) Mother CVD (cardiovascular disease) Brother No problems noted. Brother No problems noted. Daughter No problems noted. Sister No problems noted. Sister No problems noted. Sister No problems noted. Sister No problems noted. 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 1. Little interest or pleasure in doing things: not at all 2. Feeling down, depressed, or hopeless: not at all 3. Trouble falling or staying asleep, or sleeping too much: not at all 4. Feeling tired or having little energy: not at all 5. Poor appetite or overeating: not at all 6. Feeling bad about yourself - or that you are a failure or have let yourself or your family down: not at all 7. Trouble concentrating on things, such as reading the newspaper or watching television: not at all 8. Moving or speaking so slowly that other people could have noticed. Or the opposite - being so fidgety or restless that you have been moving around a lot more than usual: not at all 9. Thoughts that you would be better off or of hurting yourself in some way: not at all Total score: 0 Depression Screening Interpretation: Negative Depression Screening Done: Yes Source: Developed by Candace Ascencio Kurt Kroenke and colleagues, with an educational elise from [employer]. Thrive Questionnaire Date Thrive assessed: 07/21/24 I am a: Patient What is your living situation today?: I have a steady place to live Within the past 12 months, did the food you bought not last and you didn't have the money to get more?: Never true Within the past 12 months, did you worry whether your food would run out before you got money to buy more?: Never true Do you have trouble paying for medicines?: No Do you have trouble getting transportation to medical appointments?: No Do you have trouble paying your heating and electricity bill?: No Do you have trouble taking care of your child, family member or friend?: No Do you have trouble with day-to-day activities such as bathing, preparing meals, shopping, managing finances, etc.?: No Are you currently unemployed and looking for a job?: No Are you interested in more education?: No Please select the resources that you would like help with: None Currently or been in a relationship where the following occur: No concerns reported THRIVE Score: 0 AUDIT C Alcohol Use Questionnaire (AUDIT-C) 1. How often do you have a drink containing alcohol?: Never 3. How often do you have six or more drinks on one occasion?: Never Total Score: 0 CHANDA-7 AMB Questionnaire CHANDA-7 Date CHANDA - 7 assessed: 07/21/24 Feeling nervous, anxious, or on edge: 0 = Not at all Not being able to stop or control worryin = Not at all Worrying too much about different things: 0 = Not at all Trouble relaxin = Not at all Being so restless that it is hard to sit still: 0 = Not at all Becoming easily annoyed or irritable: 0 = Not at all Feeling afraid as if something awful might happen: 0 = Not at all Total CHANDA-7 score (0-4 normal; 5-9 mild; 10-14 moderate; 15-21 severe): 0 Source: Developed by Candace Ascencio Kurt Kroenke and colleagues, with an educational elise from [employer]. Review of Systems Const Denies body aches, Denies chills, Denies fever(s), Denies headache(s) and Denies poor appetite Eyes Reports no additional complaints ENT Denies dizziness and Denies headache(s) Card Denies chest pain, Denies syncope, Reports rapid heart rate, Denies edema, Denies irregular heart rhythm, Denies lightheadedness and Denies dyspnea Resp Details: Chest congestion in the morning Denies cough and Denies dyspnea GI Denies abdominal pain, Denies constipation, Denies diarrhea, Denies nausea and Denies vomiting Reports no additional complaints Musc Reports no additional complaints and Denies abnormal gait Skin/Breast Reports system reviewed and no additional complaints, except as documented Neuro Denies abnormal gait, Denies dizziness, Denies syncope and Denies headache(s) Psych Reports no additional complaints Physical exam (Primary Care) Vital Signs: Last Vital Signs Pulse 127 H 07/21/24 08:37 BP 112/80 07/21/24 08:37 Pulse Ox 98 07/21/24 08:37 Oxygen Delivery Method Room Air 07/21/24 08:37 BMI result Body Mass Index 26.6 Tobacco/Smoking Status: Tobacco use Status Tobacco use date assessed 07/21/24 07/21/24 08:42 Patient Tobacco Use Status Current everyday Tobacco 07/21/24 08:37 Tobacco use type Cigarette 07/21/24 08:37 e-Cigarette/Vaping Use Never Used 07/21/24 08:37 PHQ-9: PHQ-9 Score PHQ-9: Total score 0 07/21/24 10:20 Depression Screening Interpretation: Negative Thrive Assessment: Date of Thrive Assessment Date Thrive assessed 07/21/24 07/21/24 08:42 Currently or been in a relationship where the following occur: No concerns reported Const General: cooperative, healthy appearing, comfortable and no acute distress Orientation/consciousness: patient oriented x3 Neck Neck: Yes full ROM and Yes no lymphadenopathy Resp Effort & Inspection: normal respiratory effort Auscultation: clear to auscultation bilaterally, no crackles, no rales, no rhonchi and no wheezes Cardio Rate: tachycardic Rhythm: abnormal rhythm Skin General skin exam: no rashes or lesions noted Neuro General: patient oriented x3 Gait exam (Neuro): Normal gait present Extrem General: Yes normal to inspection, Yes full ROM and No edema Psych Affect: normal affect Attitude: cooperative Insight: Good insight present (Psych) Judgement: Good judgement present (Psych) Office Procedures EKG Details: Patient found to have new onset atrial fibrillation with a rate of around 113 beats per minute. No evidence of ischemia. EKG was reviewed by myself and Dr. Weathers. [id number], Complete Coding Level of Care Code Est Pt Level 4 (41210) Diagnoses COVID-19 virus infection U07.1 Impaired fasting glucose R73.01 Anemia D64.9 Stage 3a chronic kidney disease N18.31 Chronic kidney disease stage 3 subtype: stage 3a (GFR 45-59) Trigeminal neuralgia pain G50.0 Essential hypertension I10 Hypertension type: essential hypertension Tobacco abuse Z72.0 Hypercholesterolemia E78.00 Afib I48.91 CPT Codes EKG - CPT: 78571-[id number], Complete ([id number]) Assessment & Plan Assessment & Plan (1) COVID-19 virus infection: Comment: June 03/2024 Code(s): U07.1 - COVID-19 Category: Medical Plan: Symptoms have resolved at this time patient no longer having a cough and tolerated the Paxlovid well. (2) Impaired fasting glucose: Code(s): R73.01 - Impaired fasting glucose Category: Medical Plan: Decrease the amount of carbohydrates such as pasta, bread, rice, and potatoes and limit the amount of sweets. Although fruits are generally healthy they should be eaten in moderation as they are still high in sugar. Not currently on medical management (3) Anemia: Code(s): D64.9 - Anemia, unspecified Category: Medical Plan: Continue to monitor with routine blood work. (4) CKD (chronic kidney disease) stage 3, GFR 30-59 ml/min: Code(s): N18.30 - Chronic kidney disease, stage 3 unspecified Category: Medical Qualifiers: Chronic kidney disease stage 3 subtype: stage 3a (GFR 45-59) Qualified Code(s): N18.31 - Chronic kidney disease, stage 3a Plan: Continue to avoid kidney irritants such as NSAIDs and stay well hydrated. (5) Trigeminal neuralgia pain: Code(s): G50.0 - Trigeminal neuralgia Category: Medical Plan: Currently on pain management with oxycodone-acetaminophen. (6) Hypertension: Code(s): I10 - Essential (primary) hypertension Category: Medical Qualifiers: Hypertension type: essential hypertension Qualified Code(s): I10 - Essential (primary) hypertension Plan: Continue on current blood pressure medication. Avoid salt intake and encourage healthy diet and regular exercise. (7) Tobacco abuse: Code(s): Z72.0 - Tobacco use Category: Medical Plan: Smoking cigarettes and the use of tobacco can be harmful. We discussed the importance of stopping and options to aid in smoking cessation. (8) Hypercholesterolemia: Comment: May 2017 Code(s): E78.00 - Pure hypercholesterolemia, unspecified Category: Medical Plan: Avoid foods that are high in cholesterol such as red meat, fried foods, eggs and baked goods. Triglyceride goal of less than 150 and LDL goal of less than 130. Continue on simvastatin 10 mg (9) Afib: Code(s): I48.91 - Unspecified atrial fibrillation Category: Medical Plan: Patient complaining of feeling jittery on exam found to have tachycardia and irregular rhythm. EKG was performed in the office which found new onset atrial fibrillation. Discussed this case with Dr. Weathers who personally examined the patient and Cardiology was consulted (Dr. Tran) who recommended starting patient on anticoagulation with Eliquis 5 mg b.i.d. and continue with atenolol 25 mg rate control. Patient stable at this time not needing immediate ER intervention. Placed stat referral to Cardiology and advised patient to reach out if he has not heard from cardiology in the next 2 days. Patient's Pranay Vasc score is 4 recommending anticoagulation. Discussed at length this new diagnosis and medication with the patient all questions were answered and side effects reviewed. Reviewed red flag symptoms and when to present to the ER for re-evaluation. Plan This note was constructed using voice recognition software. While every effort has been made to ensure accuracy and public relations coordinator, still areas may have been included sometimes these areas may affect the content or meeting of the given symptoms. Total time spent caring for the patient today was 20 minutes. This includes time spent before the visit reviewing the chart, time spent during the visit, and time spent after the visit and documentation. Orders: Orders AMB EKG-In Office Today R00.2 - Palpitations Referrals Cardiology Referral I48.91 - Unspecified atrial fibrillation Medications: New apixaban (Eliquis) 5 mg PO BID 60 tabs 3RF Discontinued nirmatrelvir-ritonavir 150-100 mg (Paxlovid) Discontinued Reason: Patient no longer taking PO PER PKG DIR nirmatrelvit 150 mg with Ritonavir 100 mg BID 5 days 20 tabs 0RF U07.1 - COVID-19
[2024-07-21 08:37] VITALS: BP 112/80; PULSE 127; O2SAT 98; BMI 26.6
== END 2024-07-21 09:45 | disposition home or self-care (01) ==
PROVIDERS: PCP Internal Medicine
DX: U07.1 COVID-19 (principal); R73.01 Impaired fasting glucose; D64.9 Anemia, unspecified; N18.31 Chronic kidney disease, stage 3a; G50.0 Trigeminal neuralgia; I10 Essential (primary) hypertension; Z72.0 Tobacco use; E78.00 Pure hypercholesterolemia, unspecified; I48.91 Unspecified atrial fibrillation

== ENCOUNTER → 2024-07-21 08:23 | Outpatient (BNVA) | payer MEDICARE, SELFPAY | PROVIDERS: PCP Internal Medicine | DX: U07.1 COVID-19 (principal); R73.01 Impaired fasting glucose; D64.9 Anemia, unspecified; G50.0 Trigeminal neuralgia; I12.9 Hypertensive chronic kidney disease with stage 1 through stage 4 chronic kidney disease, or unspecified chronic kidney disease; N18.31 Chronic kidney disease, stage 3a; E78.00 Pure hypercholesterolemia, unspecified; Z72.0 Tobacco use; Z71.6 Tobacco abuse counseling | CPT/HCPCS: 93005; 96127; 99212 ==

== ENCOUNTER 2024-08-04 13:05 | Outpatient (AMB) | payer MEDICARE, SELFPAY ==
--- NOTE | 2024-08-04 13:14 | MHC.OFFVIS ---
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 by: Self / Same As Patient Allergies hydrochlorothiazide Adverse Reaction (Intermediate, Verified 07/21/24 08:37) elevation of BP Medication List - Last Reconciled 08/04/24 by Khadar Giron MD amlodipine 2.5 mg PO DAILY apixaban (Eliquis) 5 mg PO BID aspirin 81 mg PO DAILY atenolol 25 mg PO BID 90 days cholecalciferol (vitamin D3) 25 mcg PO DAILY clobetasol 0.05% 1 appl topical BID 2 weeks cyanocobalamin (vitamin B-12) 1,000 mcg PO DAILY diazepam (Valium) 5 mg PO BID PRN 90 days folic acid 1 mg PO DAILY levothyroxine 125 mcg PO DAILY 90 days oxycodone-acetaminophen 10-325 mg 1-2 tabs every 6 hours PRN; simvastatin 10 mg PO QPM 90 days HPI Comments Details: Jose Rafael is here for consultation regarding atrial fibrillation. He had routine PCP visit recently and at that time, it seems that he was diagnosed with atrial fibrillation. He states that on that specific day he did not feel good and had some nonspecific symptoms but nothing clear-cut cardiac. Few weeks prior to that, he apparently had COVID infection. Not clear if that precipitated the atrial fibrillation. Any case, today he seems to be back to normal sinus rhythm by EKG. No prior history of any coronary disease but he seems to had [place] [facility] [place] He does not have any angina. Even when he had atrial fibrillation, no clear palpitations. [facility] Medical History Medicare annual wellness visit, initial Colonoscopy refused AAA (abdominal aortic aneurysm) Impaired glucose tolerance Cervical nerve root compression Psoriasis Hypertension Hypothyroid Hypercholesterolemia Tobacco abuse Surgical History History of facial surgery H/O arthroscopy of left knee History of AAA (abdominal aortic aneurysm) repair Family History Father Hypertension CVD (cardiovascular disease) Mother CVD (cardiovascular disease) Brother No problems noted. Brother No problems noted. Daughter No problems noted. Sister No problems noted. Sister No problems noted. Sister No problems noted. Sister No problems noted. 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 Cognitive needs: No Hearing needs: No Vision needs: Yes Review of Systems Const Denies chills, Denies fatigue, Denies fever(s), Denies frequent falls, Denies weakness, Denies weight gain and Denies weight loss ENT Denies dizziness Card Denies chest pain, Denies leg edema, Denies lightheadedness, Denies palpitations, Denies dyspnea and Denies dyspnea on exertion Resp Denies cough, Denies dyspnea and Denies dyspnea on exertion GI Denies hematochezia Musc Denies abnormal gait, Denies muscle weakness, Denies numbness, Denies radiating pain into limb and Denies tingling Neuro Denies abnormal gait, Denies dizziness, Denies frequent falls, Denies numbness, Denies tingling and Denies weakness Endo Denies fatigue and Denies palpitations Physical Exam Vital Signs: Last Vital Signs Pulse 59 08/04/24 13:15 BP 100/60 08/04/24 13:15 BMI result Body Mass Index 27.0 Const General: comfortable and no acute distress Orientation/consciousness: patient oriented x3 HEENT Other: Unremarkable Head: Yes normal to inspection Neck Neck: Yes normal visual inspection Chest Chest palpation & inspection: normal inspection of the chest Resp Auscultation: clear to auscultation bilaterally Cardio Palpation: normal PMI Heart sounds: S1 normal heart sound present, S2 normal heart sound present, no gallops, no murmurs and no rubs GI Palpation (GI): Soft to palpation Back/Spine/Pelvis Other: unremarkable Skin General skin exam: no rashes or lesions noted Neuro General: patient oriented x3 Extrem General: Yes normal to inspection Psych Mental Status: mental status grossly normal Office Procedures EKG Details: EKG with sinus rhythm at 59/Min; no significant ST-T changes; [place]. [id number], Complete Assessment & Plan Assessment & Plan (1) PAF (paroxysmal atrial fibrillation): Code(s): I48.0 - Paroxysmal atrial fibrillation Category: Medical (2) Hypertension: Code(s): I10 - Essential (primary) hypertension Category: Medical Qualifiers: Hypertension type: essential hypertension Qualified Code(s): I10 - Essential (primary) hypertension Plan In the recent EKG, underlying rhythm is atrial fibrillation at a rate of 113/Min. Today's EKG shows sinus rhythm. Possible precipitant could be recent COVID. Also has a history of vascular disease and that probably plays a role. We can start with an echocardiogram and Holter monitor. With regard to medications, he is on atenolol 25 mg b.i.d. which is a long-term medication. We can go up on the dose to 50 mg b.i.d.. He will try this with the existing medications and see how he feels. If no side effects, can keep this as the new dose, unless any significant bradycardia on the Holter. He is already on anticoagulation. As the blood pressure is lowish, hold off on amlodipine for now. Plan discussed with patient and he agrees. He will call with any concerns. Orders: Orders CA echo transthoracic complete Today I48.0 - Paroxysmal atrial fibrillation ECG 7 day holter monitor Today I48.0 - Paroxysmal atrial fibrillation, R00.2 - Palpitations Medications: Discontinued amlodipine Discontinued Reason: Doctor's Order 2.5 mg PO DAILY 30 tabs 3RF I10 - Essential (primary) hypertension Coding Level of Care Code New Pt Level 4 (34236) Diagnoses PAF (paroxysmal atrial fibrillation) I48.0 Essential hypertension I10 Hypertension type: essential hypertension CPT Codes EKG - CPT: 87464-[id number], Complete ([id number])
[2024-08-04 13:15] VITALS: BP 100/60; PULSE 59; BMI 27.0
== END 2024-08-04 13:49 | disposition home or self-care (01) ==
PROVIDERS: PCP Internal Medicine; Visit Provider Internal Medicine
DX: I48.0 Paroxysmal atrial fibrillation (principal); I10 Essential (primary) hypertension
CPT/HCPCS: 93010; 99204

== ENCOUNTER → 2024-08-04 13:05 | Outpatient (BNVA) | payer MEDICARE, SELFPAY | PROVIDERS: PCP Internal Medicine; Visit Provider Internal Medicine | DX: I48.0 Paroxysmal atrial fibrillation (principal); I10 Essential (primary) hypertension; R00.2 Palpitations; F17.210 Nicotine dependence, cigarettes, uncomplicated; Z86.16 Personal history of COVID-19 | CPT/HCPCS: 93005; 99202 ==

== ENCOUNTER 2024-08-19 08:45 | Outpatient (AMB) | payer MEDICARE, SELFPAY ==
--- NOTE | 2024-08-19 09:06 | A.OFFPC_ITS ---
Vital Signs 08/19/24 09:09 08/19/24 09:41 Height 5 ft 9 in Weight 179 lb 6 oz BMI 26.5 BP 140/78 H 134/78 Blood Pressure Location Lt brachial Lt brachial Position Sitting Sitting Pulse 48 L 50 Pulse Source Pulse Oximeter Pulse Oximeter Pulse Oximetry (%) 95 Oxygen Delivery Method Room Air Intake Visit Reasons: afib Intake Note: Patient is here to follow up on Afib. Sludge Filtration Attendant Required: No Hand Button Splitter: Not Required per policy Accompanied by: Self / Same As Patient Allergies hydrochlorothiazide Adverse Reaction (Intermediate, Verified 08/19/24 09:08) elevation of BP Medication List - Last Reconciled 08/19/24 by Charmaine Conti PA-C apixaban (Eliquis) 5 mg PO BID aspirin 81 mg PO DAILY atenolol 50 mg PO BID cholecalciferol (vitamin D3) 25 mcg PO DAILY clobetasol 0.05% 1 appl topical BID 2 weeks cyanocobalamin (vitamin B-12) 1,000 mcg PO DAILY diazepam (Valium) 5 mg PO BID PRN 90 days folic acid 1 mg PO DAILY levothyroxine 125 mcg PO DAILY 90 days oxycodone-acetaminophen 10-325 mg 1-2 tabs every 6 hours PRN; simvastatin 10 mg PO QPM 90 days Tobacco use date assessed: 08/19/24 Fall risk assessment: No Falls in past year Last assessed Fall Risk: 08/19/24 Dental Screening Dental Screen Date: 08/19/24 Did you have a dental visit in the last 12 months?: No Did you have a dental problem in the last 6 months where you did not have access to dental care?: No Was dental information given to patient?: No HPI afib HPI Details 73-year-old male with past medical histo ry of newly diagnosed AFib on anticoagulation,? hypothyroidism, hypertension and trigeminal neuralgia last seen 07/2024.? In review of the notes patient was seen by [facility] Cardiology 08/04/2024 for new diagnosis of atrial fibrillation EKG showing sinus rhythm recommended echocardiogram and Holter monitor continue on atenolol and anticoagulation and hold amlodipine for low blood pressure.? Patient tells us today he has been doing generally well. He has been doing well on his medication dose change and has appointment with cardiology next week. Denies any lightheadedness or dizziness, chest pain or palpitations. [facility] Medical History Medicare annual wellness visit, initial Colonoscopy refused AAA (abdominal aortic aneurysm) Impaired glucose tolerance Cervical nerve root compression Psoriasis Hypertension Hypothyroid Hypercholesterolemia Tobacco abuse Surgical History History of facial surgery H/O arthroscopy of left knee History of AAA (abdominal aortic aneurysm) repair Family History Father Hypertension CVD (cardiovascular disease) Mother CVD (cardiovascular disease) Brother No problems noted. Brother No problems noted. Daughter No problems noted. Sister No problems noted. Sister No problems noted. Sister No problems noted. Sister No problems noted. 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 1. Little interest or pleasure in doing things: not at all 2. Feeling down, depressed, or hopeless: not at all 3. Trouble falling or staying asleep, or sleeping too much: not at all 4. Feeling tired or having little energy: not at all 5. Poor appetite or overeating: not at all 6. Feeling bad about yourself - or that you are a failure or have let yourself o r your family down: not at all 7. Trouble concentrating on things, such as reading the newspaper or watching television: not at all 8. Moving or speaking so slowly that other people could have noticed. Or the opposite - being so fidgety or restless that you have been moving around a lot more than usual: not at all 9. Thoughts that you would be better off or of hurting yourself in some way: not at all Total score: 0 Depression Screening Interpretation: Negative Depression Screening Done: Yes Source: Developed by Drs. Bautista Lizarraga, Candace Krause, Oh Laureano and colleagues, with an educational elise from [employer]. Thrive Questionnaire Date Thrive assessed: 08/19/24 I am a: Patient What is your living situation today?: I have a steady place to live Within the past 12 months, did the food you bought not last and you didn't have the money to get more?: Never true Within the past 12 months, did you worry whether your food would run out before you got money to buy more?: Never true Do you have trouble paying for medicines?: No Do you have trouble getting transportation to medical appointments?: No Do you have trouble paying your heating and electricity bill?: No Do you have trouble taking care of your child, family member or friend?: No Do you have trouble with day-to-day activities such as bathing, preparing meals, shopping, managing finances, etc.?: No Are you currently unemployed and looking for a job?: No Are you interested in more education?: No Please select the resources that you would like help with: None THRIVE Score: 0 AUDIT C Alcohol Use Questionnaire (AUDIT-C) 1. How often do you have a drink containing alcohol?: Never Total Score: 0 CHANDA-7 AMB Questionnaire CHANDA-7 Date CHANDA - 7 assessed: 08/19/24 Feeling nervous, anxious, or on edge: 0 = Not at all Not being able to stop or control worryin = Not at all Worrying too much about different things: 0 = Not at all Trouble relaxin = Not at all Being so restless that it is hard to sit still: 0 = Not at all Becoming easily annoyed or irritable: 0 = Not at all Feeling afraid as if something awful might happen: 0 = Not at all Total CHANDA-7 score (0-4 normal; 5-9 mild; 10-14 moderate; 15-21 severe): 0 Source: Developed by Drs. Bautista Lizarraga, Oh Colon and colleagues, with an educational elise from [employer]. Review of Systems Const Denies body aches, Denies chills, Denies fever(s) and Denies poor appetite Eyes Reports no additional complaints ENT Reports no additional complaints Card Denies chest pain, Denies syncope, Denies edema, Denies irregular heart rhythm, Denies lightheadedness and Denies dyspnea Resp Denies cough and Denies dyspnea GI Denies abdominal pain, Denies constipation, Denies diarrhea, Denies nausea and Denies vomiting Reports no additional complaints Musc Reports no additional complaints and Denies abnormal gait Skin/Breast Reports system reviewed and no additional complaints, except as documented Neuro Denies abnormal gait and Denies syncope Psych Reports no additional complaints Physical exam (Primary Care) Vital Signs: Last Vital Signs Pulse 48 L 08/19/24 09:09 BP 140/78 H 08/19/24 09:09 Pulse Ox 95 08/19/24 09:09 Oxygen Delivery Method Room Air 08/19/24 09:09 BMI result Body Mass Index 26.5 Tobacco/Smoking Status: Tobacco use Status Tobacco use date assessed 08/19/24 08/19/24 09:13 Patient Tobacco Use Status Current everyday Tobacco 08/19/24 09:13 Tobacco use type Cigarette 08/19/24 09:13 e-Cigarette/Vaping Use Never Used 08/19/24 09:13 PHQ-9: PHQ-9 Score PHQ-9: Total score 0 08/19/24 09:13 Depression Screening Interpretation: Negative Thrive Assessment: Date of Thrive Assessment Date Thrive assessed 08/19/24 08/19/24 09:13 Const General: cooperative, healthy appearing, comfortable and no acute distress Orientation/consciousness: patient oriented x3 HENMT Head: Yes normocephalic Ears: hearing grossly normal bilaterally General nose exam: Normal external nose present Eyes General: appearance normal, both eyes and all related structures Conjunctivae: conjunctivae normal Neck Neck: Yes full ROM and Yes no lymphadenopathy Resp Effort & Inspection: normal respiratory effort Auscultation: clear to auscultation bilaterally, no crackles, no rales, no rhonchi and no wheezes Cardio Rate: regular rate Rhythm: regular rhythm Skin General skin exam: no rashes or lesions noted Neuro General: patient oriented x3 Gait exam (Neuro): Normal gait present Extrem General: Yes normal to inspection, Yes full ROM and No edema Psych Affect: normal affect Attitude: cooperative Insight: Good insight present (Psych) Judgement: Good judgement present (Psych) Coding Level of Care Code Est Pt Level 3 (66643) Diagnoses PAF (paroxysmal atrial fibrillation) I48.0 Stage 3a chronic kidney disease N18.31 Chronic kidney disease stage 3 subtype: stage 3a (GFR 45-59) Essential hypertension I10 Hypertension type: essential hypertension Tobacco abuse Z72.0 Hypercholesterolemia E78.00 Assessment & Plan Assessment & Plan (1) PAF (paroxysmal atrial fibrillation): Code(s): I48.0 - Paroxysmal atrial fibrillation Category: Medical Plan: Patient recently diagnosed with atrial fibrillation and started [facility] Patient asymptomatic today. Patient is mildly bradycardic denies any symptoms at this time advised to follow up with Cardiology. Reviewed red flag symptoms and when to present for re-evaluation. Continue to follow with Cardiology (2) CKD (chronic kidney disease) stage 3, GFR 30-59 ml/min: Code(s): N18.30 - Chronic kidney disease, stage 3 unspecified Category: Medical Qualifiers: Chronic kidney disease stage 3 subtype: stage 3a (GFR 45-59) Qualified Code(s): N18.31 - Chronic kidney disease, stage 3a Plan: Continue to avoid kidney irritants and stay well hydrated. (3) Hypertension: Code(s): I10 - Essential (primary) hypertension Category: Medical Qualifiers: Hypertension type: essential hypertension Qualified Code(s): I10 - Essential (primary) hypertension Plan: Continue on current blood pressure medication. Avoid salt intake and encourage healthy diet and regular exercise. (4) Tobacco abuse: Code(s): Z72.0 - Tobacco use Category: Medical Plan: Smoking cigarettes and the use of tobacco can be harmful. We discussed the importance of stopping and options to aid in smoking cessation. (5) Hypercholesterolemia: Comment: May 2017 Code(s): E78.00 - Pure hypercholesterolemia, unspecified Category: Medical Plan: Avoid foods that are high in cholesterol such as red meat, fried foods, eggs and baked goods. Triglyceride goal of less than 150 and LDL goal of less than 100. Continue on simvastatin 10 Plan This note was constructed using voice recognition software. While every effort has been made to ensure accuracy and cosmetics supervisor, still areas may have been included sometimes these areas may affect the content or meeting of the given symptoms. Total time spent caring for the patient today was 20 minutes. This includes time spent before the visit reviewing the chart, time spent during the visit, and time spent after the visit and documentation. Medications: New atenolol 50 mg PO BID 180 tabs 2RF
[2024-08-19 09:09] VITALS: BP 140/78; PULSE 48; O2SAT 95; BMI 26.5
[2024-08-19 09:41] VITALS: BP 134/78; PULSE 50
== END 2024-08-19 09:51 | disposition home or self-care (01) ==
PROVIDERS: PCP Internal Medicine
DX: I12.9 Hypertensive chronic kidney disease with stage 1 through stage 4 chronic kidney disease, or unspecified chronic kidney disease (principal); I48.0 Paroxysmal atrial fibrillation; N18.31 Chronic kidney disease, stage 3a; Z72.0 Tobacco use; E78.00 Pure hypercholesterolemia, unspecified

== ENCOUNTER → 2024-08-19 08:45 | Outpatient (BNVA) | payer MEDICARE, SELFPAY | PROVIDERS: PCP Internal Medicine | DX: I48.0 Paroxysmal atrial fibrillation (principal); I12.9 Hypertensive chronic kidney disease with stage 1 through stage 4 chronic kidney disease, or unspecified chronic kidney disease; N18.31 Chronic kidney disease, stage 3a; E78.00 Pure hypercholesterolemia, unspecified; Z72.0 Tobacco use | CPT/HCPCS: 99212 ==

== ENCOUNTER → 2024-08-26 07:50 | Outpatient (REF) | payer MEDICARE, SELFPAY ==
--- NOTE | 2024-08-26 07:55 | CA_ITS ---
Transthoracic Echocardiogram Patient (Last, First, Middle): Jose Rafael Cameron D Gender: Male Date of : 1950 Age: 73 Procedure Date: 08/26/2024 Procedure Type: Transthoracic Echocardiogram Location: OP Height: 175.26 cm Weight: 81.65 kg BSA: 1.98 m2 Heart Rate: bpm BP: 128 / 68 mmHg Business Services Analyst: TO Referring MD: Khadar Giron MD Symptoms: I48.0 - Paroxysmal atrial fibrillation Study Quality: Fair/Contrast Conclusions: - Normal left ventricular size and systolic function. The visually estimated ejection fraction is between 60-65%. There is no evidence of regional wall motion abnormalities. Diastolic function is normal for age. There is moderate septal asymmetric hypertrophy. - Mildly increased right ventricular cavity size. There is normal right ventricular systolic function. - Mildly elevated right atrial pressure. Findings Procedure Information Contrast agent, definity, is being given per protocol without apparent complications. Left Ventricle Normal left ventricular size and systolic function. The visually estimated ejection fraction is between 60-65%. There is no evidence of regional wall motion abnormalities. Diastolic function is normal for age. There is moderate septal asymmetric hypertrophy. Right Ventricle Mildly increased right ventricular cavity size. There is normal right ventricular systolic function. Atria The left atrium is mildly dilated. The right atrium is mildly dilated. Aortic Valve There is a normal trileaflet aortic valve. There is mild calcification of the aortic valve. There is no aortic valve stenosis. There is mild aortic valve regurgitation. Mitral Valve The mitral valve appears normal. There is trace mitral valve regurgitation. There is no mitral valve stenosis. Pulmonic Valve The pulmonic valve is normal. There is trace pulmonic valve regurgitation. Tricuspid Valve Normal tricuspid valve structure. There is trace tricuspid valve regurgitation. The right ventricular systolic pressure is 23 mmHg. Mildly elevated right atrial pressure. There is no evidence of pulmonary hypertension. Great Vessels All visible segments of the aorta are normal in size. Venous The inferior vena cava is dilated and collapses greater than 50% with inspiration. Pericardium/Pleural There is no evidence of pericardial effusion. Measurements 2D Linear Measurements IVSd: 1.44 0.6-0.9/0.6-1.0 cm LVIDd: 4.89 3.9-5.3/4.2-5.9 cm LVIDd Index: 2.47 2.4-3.2/2.2-3.1 cm/m2 LVIDs: 3.14 2.0-3.6 cm LVPWd: 0.93 0.7-1.1 cm LA Diam: 3.80 2.7-3.8/3.0-4.0 cm LAIDs Index: 1.92 1.5-2.3 cm/m2 LV Mass: 276.36 67-162/88-224 g LV Mass Index: 139.57 43-95/49-115 g/m2 LVOT Diam: 2.30 3.0+(-)1.3 cm 2D Systolic Function EF 4C: 63.00 >55% EF 2C: 63.90 >55% EF BiP: 64.00 >55% Mitral Valve MV Pk E: 0.53 MV PK A: 0.50 MV Decel Time: 249.00 E/A: 1.10 E'Lateral: 8.27 E'Medial: 5.87 E/E' Med: 9.00 E/E' Lat: 6.40 PHT: 73.00 MVA PHT: 3.01 Decel Tripp: 2.12 Aortic Valve AoV Pk Saran: 1.59 AoV Mn Saran: 1.06 AoV VTI: 0.40 AoV Pk Grad: 10.00 Aov Mn Grad: 5.00 MARIA DE JESUS Cont.VTI: 2.89 LVOT LVOT Pk Saran: 1.11 LVOT Mn Saran: 0.66 LVOT VTI: 0.28 LVOT Pk Grad: 5.00 LVOT Mn Grad: 2.00 LVOT Diam: 2.30 LVOT Area: 4.15 Diastolic Function MV Pk E: 0.53 MV Pk A: 0.50 E/A: 1.10 E'Medial: 5.87 E/E' Med: 9.00 E' Laterial: 8.27 E/E' Lat: 6.40 Right Ventricle TAPSE (mm): 24.30 TVS' Saran: 15.70 Tricuspid Valve TR Pk Saran: 2.21 TR Pk Grad: 20.00 RA Press: 3.00 RVSP: 23.00 Great Vessels Aorta Sinus of Valsalva: 3.64 2.0-3.5 cm Ao Asc: 3.60 2.1-3.4 cm Updated in Other Vendor System with Status of Final Marcel Tran MD electronically signed on 08/27/2024 5:42:16 PM with status of Final
== END ==
LOC: HO.CARD 07:50
PROVIDERS: PCP Internal Medicine; Visit Provider Internal Medicine
DX: R00.2 Palpitations (principal); I48.0 Paroxysmal atrial fibrillation
CPT/HCPCS: 93242; 93306; Q9957

== ENCOUNTER → 2024-08-26 07:55 | Outpatient (BNV) | payer MEDICARE, SELFPAY | PROVIDERS: PCP Internal Medicine; Visit Provider Internal Medicine Cardiovascular Disease | DX: R00.1 Bradycardia, unspecified (principal) | CPT/HCPCS: 93244; 93306 ==

== ENCOUNTER 2024-09-23 13:17 | Outpatient (AMB) | payer MEDICARE, SELFPAY ==
[2024-09-23 13:39] VITALS: BP 128/70; PULSE 60; BMI 26.4
--- NOTE | 2024-09-23 13:39 | MHC.OFFVIS ---
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 Allergies hydrochlorothiazide Adverse Reaction (Intermediate, Verified 08/19/24 09:08) elevation of BP Medication List - Last Reconciled 09/23/24 by Shanae Mae, KAYLEIGH-C apixaban (Eliquis) 5 mg PO BID aspirin 81 mg PO DAILY atenolol 50 mg PO BID cholecalciferol (vitamin D3) 25 mcg PO DAILY clobetasol 0.05% 1 appl topical BID 2 weeks cyanocobalamin (vitamin B-12) 1,000 mcg PO DAILY diazepam (Valium) 5 mg PO BID PRN 90 days folic acid 1 mg PO DAILY levothyroxine 125 mcg PO DAILY 90 days oxycodone-acetaminophen 10-325 mg 1-2 tabs every 6 hours PRN; simvastatin 10 mg PO QPM 90 days HPI HPI 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 Today he reports he has been feeling well with no concerning symptoms. He has not felt any heart palpitations and has had no concerns about recurrent AFib. He denies chest discomfort at rest or with activity. No shortness of breath, PND, orthopnea or edema. No lightheadedness, presyncope, syncope. He takes his meds as directed. No bleeding issues reported. He does only light physical activities. [facility] Medical History Medicare annual wellness visit, initial Colonoscopy refused AAA (abdominal aortic aneurysm) Impaired glucose tolerance Cervical nerve root compression Psoriasis Hypertension Hypothyroid Hypercholesterolemia Tobacco abuse Surgical History (Updated 09/23/24 @ 15:43 by Shanae Mae, KAYLEIGH-C) History of facial surgery H/O arthroscopy of left knee History of AAA (abdominal aortic aneurysm) repair Family History Father Hypertension CVD (cardiovascular disease) Mother CVD (cardiovascular disease) Brother No problems noted. Brother No problems noted. Daughter No problems noted. Sister No problems noted. Sister No problems noted. Sister No problems noted. Sister No problems noted. 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 Cognitive needs: No Hearing needs: No Vision needs: Yes Review of Systems Const All systems reviewed & are unremarkable except as noted in HPI and below Denies weakness ENT Denies dizziness Card Denies chest pain, Denies chest pain with activity, Denies syncope, Denies rapid heart rate, Denies pedal edema, Denies edema, Denies leg edema, Denies lightheadedness, Denies palpitations, Denies dyspnea, Denies dyspnea on exertion and Denies orthopnea Resp Denies cough, Denies dyspnea and Denies dyspnea on exertion GI Denies hematochezia and Denies change in stool character Musc Denies abnormal gait, Denies muscle cramps, Denies muscle weakness, Denies numbness, Denies radiating pain into limb and Denies tingling Neuro Denies abnormal gait, Denies dizziness, Denies syncope, Denies numbness, Denies tingling and Denies weakness Endo Denies palpitations Physical Exam Vital Signs: Last Vital Signs Pulse 60 09/23/24 13:39 BP 128/70 09/23/24 13:39 BMI result Body Mass Index 26.4 Const General: cooperative, healthy appearing, comfortable and no acute distress Orientation/consciousness: patient oriented x3 Neck Neck: Yes normal visual inspection and Yes no JVD Resp Effort & Inspection: normal respiratory effort Auscultation: clear to auscultation bilaterally, no rales, no rhonchi and no wheezes Cardio Rate: regular rate Rhythm: regular rhythm Heart sounds: S1 normal heart sound present, S2 normal heart sound present, no gallops, no murmurs and no rubs Neuro General: patient oriented x3 Extrem General: Yes normal to inspection and No no pedal edema Psych Appearance: grossly normal Mental Status: mental status grossly normal Speech and movement: Normal speech and movement present Assessment & Plan Assessment & Plan (1) PAF (paroxysmal atrial fibrillation): Code(s): I48.0 - Paroxysmal atrial fibrillation Category: Medical Plan: Incidental finding of atrial fibrillation on EKG at PCP visit recently. He was put on atenolol for heart rate control and Eliquis for anticoagulation. EKG done in our office last visit showed normal sinus rhythm. His atenolol was increased last visit to help prevent recurrent atrial fibrillation. Holter monitor done 08/26/2024 for 6 days shows sinus rhythm with average 52 beats per minute, 88% of the time heart rate less than 60, occasional PACs. Echocardiogram done 08/26/2024 shows EF 60-65%, no regional wall motion abnormalities, moderate septal asymmetric hypertrophy, right and left atrium is mildly dilated. Today he reports he has been feeling very well with no concerning symptoms. He says he has good activity tolerance and does only light physical activities. No excess fatigue or shortness of breath. Pulse is regular on examination today. Will have him continue on current atenolol dose. Continue Eliquis for anticoagulation. He does say the co-pay for this medication is quite high and he will discuss options with his pharmacist. I gave him co-pay cards for Eliquis and Xarelto to see if those work. Instructed to call if he notices recurrent AFib. Emergency care if ever needed for symptoms. Cardiology follow-up for reassessment symptoms, sinus bradycardia in 4 months, sooner if needed. (2) Hypertension: Code(s): I10 - Essential (primary) hypertension Category: Medical Qualifiers: Hypertension type: essential hypertension Qualified Code(s): I10 - Essential (primary) hypertension Plan: Well controlled at this time. No med changes made. (3) Hypercholesterolemia: Comment: May 2017 Code(s): E78.00 - Pure hypercholesterolemia, unspecified Category: Medical Plan: [place] LDL goal less than 100. Labs are followed by PCP. In our system labs done 05/29/2023 showed LDL 95. Continue simvastatin (4) History of AAA (abdominal aortic aneurysm) repair: Comment: 2015 Dr. Sawant Code(s): Z98.890 - Other specified postprocedural states Category: Surgical Plan: History of surgical abdominal aortic aneurysm repair 2016 in [place]. He no longer follows with his surgeon. He says he has not had any ultrasounds on his abdominal aorta since around 2018. Recommended he have ultrasound for evaluation and he declines. He says he will never have surgery on it again. He denies any abdominal pain. He does take daily aspirin but now that he is on Eliquis aspirin can be stopped. Plan Time spent on chart review, documentation, interview and assessment Coding Level of Care Code Est Pt Level 4 (05563) Complex EM visit Add On G2211 Diagnoses PAF (paroxysmal atrial fibrillation) I48.0 Essential hypertension I10 Hypertension type: essential hypertension Hypercholesterolemia E78.00 History of AAA (abdominal aortic aneurysm) repair Z98.890 Time Spent (min) 36
== END 2024-09-23 14:14 | disposition home or self-care (01) ==
PROVIDERS: PCP Internal Medicine; Visit Provider Nurse Practitioner Family
DX: I48.0 Paroxysmal atrial fibrillation (principal); I10 Essential (primary) hypertension; E78.00 Pure hypercholesterolemia, unspecified; Z98.890 Other specified postprocedural states
CPT/HCPCS: 99214; G2211

== ENCOUNTER → 2024-09-23 13:17 | Outpatient (BNVA) | payer MEDICARE, SELFPAY | PROVIDERS: PCP Internal Medicine; Visit Provider Nurse Practitioner Family | DX: I48.0 Paroxysmal atrial fibrillation (principal); I10 Essential (primary) hypertension; F17.210 Nicotine dependence, cigarettes, uncomplicated; E78.00 Pure hypercholesterolemia, unspecified; Z98.890 Other specified postprocedural states | CPT/HCPCS: 99212 ==

== ENCOUNTER 2024-11-14 15:29 | Outpatient (AMB) | payer MEDICARE, SELFPAY ==
[2024-11-14 15:35] VITALS: BP 124/76; PULSE 62; O2SAT 95; BMI 26.9
--- NOTE | 2024-11-14 15:35 | MHC.PC.OV ---
Vital Signs 11/14/24 15:35 Height 5 ft 9 in Weight 182 lb BMI 26.9 BP 124/76 Blood Pressure Location Lt brachial Position Sitting Pulse 62 Pulse Source Pulse Oximeter Pulse Oximetry (%) 95 Oxygen Delivery Method Room Air Intake Visit Reasons: 3 month f/u Intake Note: Patient here for a 3 month follow up Vendor Management Consultant Required: No Accompanied by: Self / Same As Patient Allergies hydrochlorothiazide Adverse Reaction (Intermediate, Verified 11/14/24 15:39) elevation of BP Medication List - Last Reconciled 11/14/24 by Anne-Marie Perez MD apixaban (Eliquis) 5 mg PO BID atenolol 50 mg PO BID cholecalciferol (vitamin D3) 25 mcg PO DAILY clobetasol 0.05% 1 appl topical BID 2 weeks cyanocobalamin (vitamin B-12) 1,000 mcg PO DAILY diazepam (Valium) 5 mg PO BID PRN 90 days folic acid 1 mg PO DAILY levothyroxine 125 mcg PO DAILY 90 days oxycodone-acetaminophen 10-325 mg 1-2 tabs every 6 hours PRN; simvastatin 10 mg PO QPM 90 days Tobacco use date assessed: 08/19/24 Fall risk assessment: No Falls in past year Last assessed Fall Risk: 11/14/24 Dental Screening Dental Screen Date: 08/19/24 [facility] Medical History (Updated 11/14/24 @ 16:04 by Anne-Marie Perez MD) Medicare annual wellness visit, initial Colonoscopy refused AAA (abdominal aortic aneurysm) Impaired glucose tolerance Cervical nerve root compression Psoriasis Hypertension Hypothyroid Hypercholesterolemia Tobacco abuse Surgical History History of facial surgery H/O arthroscopy of left knee History of AAA (abdominal aortic aneurysm) repair Family History Father Hypertension CVD (cardiovascular disease) Mother CVD (cardiovascular disease) Brother No problems noted. Brother No problems noted. Daughter No problems noted. Sister No problems noted. Sister No problems noted. Sister No problems noted. Sister No problems noted. 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 Bautista Lizarraga, Candace Krause, Oh Laureano and colleagues, with an educational elise from [employer]. Physical exam (Primary Care) Vital Signs: Last Vital Signs Pulse 62 11/14/24 15:35 BP 124/76 11/14/24 15:35 Pulse Ox 95 11/14/24 15:35 Oxygen Delivery Method Room Air 11/14/24 15:35 BMI result Body Mass Index 26.9 Tobacco/Smoking Status: Tobacco use Status Tobacco use date assessed 08/19/24 11/14/24 15:40 Patient Tobacco Use Status Current everyday Tobacco 11/14/24 15:40 Tobacco use type Cigarette 11/14/24 15:40 e-Cigarette/Vaping Use Never Used 11/14/24 15:40 Thrive Assessment: Date of Thrive Assessment Date Thrive assessed 08/19/24 11/14/24 15:40 Const General: alert; No acute distress Eyes Conjunctivae: conjunctivae normal Resp Auscultation: clear to auscultation bilaterally Cardio Rate: regular rate Rhythm: regular rhythm GI Inspection: Yes normal to inspection Extrem General: Yes normal to inspection and No edema Coding Level of Care Code Est Pt Level 4 (32283) Complex EM visit Add On G2211 Diagnoses History of AAA (abdominal aortic aneurysm) repair Z98.890 PAF (paroxysmal atrial fibrillation) I48.0 Stage 3a chronic kidney disease N18.31 Chronic kidney disease stage 3 subtype: stage 3a (GFR 45-59) Essential hypertension I10 Hypertension type: essential hypertension Acquired hypothyroidism E03.9 Hypothyroidism type: acquired Hypercholesterolemia E78.00 Tobacco abuse Z72.0 Trigeminal neuralgia pain G50.0 Phimosis N47.1 Assessment & Plan Assessment & Plan (1) History of AAA (abdominal aortic aneurysm) repair: Comment: 2015 Dr. Sawant Code(s): Z98.890 - Other specified postprocedural states Category: Surgical Plan: Patient was advised to have an ultrasound done to follow-up on the abdominal aortic aneurysm history but since no plan of surgery will hold (2) PAF (paroxysmal atrial fibrillation): Code(s): I48.0 - Paroxysmal atrial fibrillation Category: Medical Plan: Continue with anticoagulation on Eliquis and atenolol fit 50 mg twice a day (3) CKD (chronic kidney disease) stage 3, GFR 30-59 ml/min: Code(s): N18.30 - Chronic kidney disease, stage 3 unspecified Category: Medical Qualifiers: Chronic kidney disease stage 3 subtype: stage 3a (GFR 45-59) Qualified Code(s): N18.31 - Chronic kidney disease, stage 3a Plan: Keep well hydrated, avoid NSAIDs (4) Hypertension: Code(s): I10 - Essential (primary) hypertension Category: Medical Qualifiers: Hypertension type: essential hypertension Qualified Code(s): I10 - Essential (primary) hypertension Plan: Continue with blood pressure medication. Decrease salt intake and exercise on atenolol 50 mg twice a day (5) Hypothyroid: Comment: Hyperthyroidism May 2017 Code(s): E03.9 - Hypothyroidism, unspecified Category: Medical Qualifiers: Hypothyroidism type: acquired Qualified Code(s): E03.9 - Hypothyroidism, unspecified Plan: Continue with thyroid medication (6) Hypercholesterolemia: Comment: May 2017 Code(s): E78.00 - Pure hypercholesterolemia, unspecified Category: Medical Plan: Avoid fried foods, chicken skin, eggs, butter margarine, pastries and meat. Be it pork or beef they have a lot of cholesterol on simvastatin 10 mg once a day LDL goal of less than 100 and triglyceride of less than 150 (7) Tobacco abuse: Code(s): Z72.0 - Tobacco use Category: Medical Plan: Patient is strongly advised to stop smoking! (8) Trigeminal neuralgia pain: Code(s): G50.0 - Trigeminal neuralgia Category: Medical Plan: Narcotic pain meds: Is being prescribed with the understanding that these medications are potentially addictive and should be used only when absolutely necessary and must always be secured. Any remaining pills should be safely disposed off appropriately. Patient is advised that narcotics can impaired judgment and one should not drive or operate heavy machinery while taking these medications. Never share these medications with anybody and do not leave them unattended. They will not be replaced under any circumstances. (9) Phimosis: Code(s): N47.1 - Phimosis Category: Medical Plan History of Present Illness The patient is a 74-year-old male presenting with concerns regarding phimosis and medication management. He has experienced difficulty with retracting his foreskin for the past three months, leading to skin irritation and occasional bleeding. The patient is currently taking anticoagulants for atrial fibrillation, which contributes to the bleeding issues, though it is not associated with pain. He has maintained proper hygiene, ruling out infections or significant inflammation. Regular use of cleaning methods prevents fungal complaints, although the foreskin's non-retractile nature presents an ongoing issue. The patient also takes atenolol for his atrial fibrillation, with a past medical history that includes chronic kidney disease and anxiety?a potential interplay in his current health challenges. Health Maintenance - Continuation of anticoagulation therapy with Eliquis - Lipid therapy management with simvastatin to maintain LDL goals (<100 mg/dL) - Antihypertensive management with atenolol (50 mg twice daily) - Recommendation for an abdominal ultrasound to evaluate the abdominal aortic aneurysm Social History - History of smoking - Experiences stress and cites current social challenges and political discussions as stressors Review of Systems - Genitourinary: Reports difficulty retracting foreskin and bleeding upon attempt. Denies pain. - Dermatologic: Reports use of clobetasol for psoriasis with noted improvement Physical Exam Results - Echocardiogram in August 2024 showing an ejection fraction of 60-65% - Normal blood count in April 2024 - Normal electrolytes with stable renal function - LDL cholesterol level of 95 mg/dL as of May 2023 Plan The patient will be referred to urology for an evaluation of phimosis management options, acknowledging the complicating factor of anticoagulation therapy. Continuation with atenolol and Eliquis is advised for the management of his atrial fibrillation, along with regular monitoring of renal function to address potential renal compromise. Management of hyperlipidemia with simvastatin will continue. A follow-up abdominal ultrasound is recommended for monitoring the abdominal aortic aneurysm. Renal function and anxiety require ongoing evaluation to guide appropriate interventions. Regular follow-ups and imaging will be conducted to ensure adequate disease monitoring and management. Patient was informed and verbally consented to the use of an ambient scribe for clinic note documentation during this visit. Discussion Notes I discussed with the patient the need for referral to urology to manage his phimosis, considering the complications from anticoagulation-induced bleeding. We thoroughly reviewed the current regimen of atenolol and Eliquis, highlighting their roles in managing atrial fibrillation and preventing thromboembolic events. I stressed the importance of simvastatin for lipid management and maintaining renal function to avoid further complications. The patient's impending abdominal ultrasound was emphasized as essential for determining the status of his aneurysm and guiding potential interventions. The patient was advised to remain vigilant about maintaining his stress levels and to report any changes in health status urgently. I counseled him on the importance of lifestyle modifications, especially smoking cessation, to aid in the overall management of his chronic conditions. Patient Instructions - Follow up with urology regarding phimosis management. - Continue taking atenolol and assess blood pressure regularly. - Maintain simvastatin therapy to manage cholesterol levels. - Schedule an abdominal ultrasound to monitor the aneurysm. - Engage in stress management practices to lessen anxiety impact. - Avoid NSAIDs and stay hydrated to prevent renal complications. - Attempt smoking cessation for overall health improvement. Orders: Referrals Urology Referral N47.1 - Phimosis Medications: Refilled simvastatin 10 mg PO QPM 90 tabs 3RF 90 days E78.00 - Pure hypercholesterolemia, unspecified clobetasol 0.05% 1 appl topical BID 60 grams 0RF 2 weeks L40.9 - Psoriasis, unspecified
== END 2024-11-14 16:25 | disposition home or self-care (01) ==
LOC: HO.HMCH 15:29
PROVIDERS: PCP Internal Medicine; Visit Provider Internal Medicine
DX: Z98.890 Other specified postprocedural states (principal); I48.0 Paroxysmal atrial fibrillation; N18.31 Chronic kidney disease, stage 3a; I10 Essential (primary) hypertension; E03.9 Hypothyroidism, unspecified; E78.00 Pure hypercholesterolemia, unspecified; Z72.0 Tobacco use; G50.0 Trigeminal neuralgia; N47.1 Phimosis

== ENCOUNTER → 2024-11-14 15:29 | Outpatient (BNVA) | payer MEDICARE, SELFPAY | PROVIDERS: PCP Internal Medicine; Visit Provider Internal Medicine | DX: I48.0 Paroxysmal atrial fibrillation (principal); I12.9 Hypertensive chronic kidney disease with stage 1 through stage 4 chronic kidney disease, or unspecified chronic kidney disease; N18.31 Chronic kidney disease, stage 3a; E03.9 Hypothyroidism, unspecified; E78.00 Pure hypercholesterolemia, unspecified; G50.0 Trigeminal neuralgia; N47.1 Phimosis; L40.9 Psoriasis, unspecified; Z72.0 Tobacco use; Z98.890 Other specified postprocedural states | CPT/HCPCS: 99212 ==

== ENCOUNTER 2025-01-15 04:15 | Inpatient (IN) | payer MEDICARE, SELFPAY ==
[2025-01-15] VITALS (9 sets, daily range): BP systolic 140–175; BP diastolic 61–76; PULSE 50–67; RESP 11–18; TEMP 36.4–37.6; O2SAT 95–98; BMI 25.8; BMI 26.0
--- NOTE | ~2025-01-15 | CT_ITS ---
CLINICAL HISTORY: Stroke Protocol: l sided weakness CT head without contrast Comparison: None Findings: No intra-axial mass, midline shift, hydrocephalus, or acute hemorrhage. There are mild central and cortical involutional changes. There are mild periventricular and subcortical white matter hypodensities. There is right occipital and temporal skull craniotomy defects. There is likely postsurgical changes right cerebellar hemisphere likely mild encephalomalacia.. There are subcentimeter hypodensities within the right cerebellar hemisphere. The visualized paranasal sinuses and mastoid air cells are normal. The orbits are within normal limits. There is no acute fracture. IMPRESSION: No acute hemorrhage Central and cortical involutional changes Old small-vessel ischemic changes Right temporal and occipital skull craniectomies Nonspecific subcentimeter hypodensities right cerebellar hemisphere, likely encephalomalacia and postsurgical changes can not exclude acute and/or chronic ischemic changes, further evaluation with MRI brain is recommended This document has been electronically signed by: Bautista Cintron MD on 01/15/2025 04:46:44
--- NOTE | ~2025-01-15 | MR_ITS ---
CLINICAL HISTORY: TIA MR brain without contrast. COMPARISON: CT angiogram head and neck dated 01/15/25 at 04:[address] head dated 01/15/25 at 04:24 EDT FINDINGS: No abnormal diffusion restriction in the brain parenchyma or extra-axial spaces. No evidence of mass, mass effect or midline shift. No intracranial hemorrhage or abnormal extra-axial fluid collection. The ventricles are proportional with the degree of mild cerebral volume loss without evidence of hydrocephalus. Basilar cisterns are patent. Patchy hyperintense T2/FLAIR areas within the periventricular white matter and guerrero radiata compatible with mild white matter small vessel disease. Encephalomalacia within the right cerebral hemisphere. Fourth ventricle is normal. No brainstem abnormality is identified. Intracranial flow voids are patent. Paranasal sinuses are clear. Small amount of fluid present within the right mastoid air cells. Left mastoid air cells are clear. IMPRESSION: 1. No acute intracranial findings. No evidence of acute ischemia, mass or mass effect. 2. Mild white-matter small-vessel disease with mild global cerebral volume loss. This document has been electronically signed by: David Kearney MD on 01/15/2025 14:57:38
--- NOTE | ~2025-01-15 | CT_ITS ---
CLINICAL HISTORY: Stroke Protocol : l sided weakness CT angiography head and neck with contrast. 3D Postprocessing. Comparison: None Findings: There is moderate to severe stenosis origin left vertebral artery. Left vertebral artery is dominant. 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 No stenoses visualized of the common carotid,brachiocephalic or subclavian arteries. Calcific plaques within the carotid bulbs and proximal internal carotid arteries with approximately 20-30% diameter stenosis right internal carotid artery. There is approximately 30-40% diameter stenosis proximal left internal carotid artery. Intracranial arteries are patent. No aneurysm, dissection, hemodynamically significant stenoses, or occlusion. No abnormal intracranial enhancement. See CT head report for description of intracranial findings The visualized thyroid gland is unremarkable. No cervical mass or fluid collection. Lung apices clear. No acute fracture. 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
--- NOTE | 2025-01-15 04:24 | ED_ITS ---
HPI - Neuro Symptoms/Deficit General Chief Complaint: Stroke Stated Complaint: POSSIBLE STROKE Time Seen by Provider: 01/15/25 04:23 Source: patient Mode of arrival: ambulatory Limitations: no limitations History of Present Illness ED Provider: HPI Narrative: Patient 74 years old with history of paroxysmal atrial fibrillation on Eliquis, hypotension, hypothyroidism, CKD stage IIIA and history of abdominal aortic aneurysm repair comes here as while watching TV around 03:40 patient noticed tingling sensation of the left side of the body started from the head to the toe and patient is started feeling weak went upstairs to called the EMS by the time EMS came patient's symptoms resolved total duration of symptoms lasted for about 5 minutes patient is fairly compliant to Eliquis twice a day denies any palpitation shortness a breath or chest pain never had similar symptoms in the past Related Data Home Medications ?Medication ?Instructions ?Recorded ?Confirmed cholecalciferol (vitamin D3) 25 25 mcg PO DAILY 05/31/20 11/14/24 mcg (1,000 unit) capsule cyanocobalamin (vitamin B-12) 1,000 mcg PO DAILY 05/31/20 11/14/24 1,000 mcg capsule Previous Rx's ?Medication ?Instructions ?Recorded diazepam 5 mg tablet (Valium) 5 mg PO BID PRN anxiety 90 days 12/30/23 #90 tabs levothyroxine 125 mcg tablet 125 mcg PO DAILY 90 days #97 tabs 01/22/24 atenolol 50 mg tablet 50 mg PO BID #180 tabs 08/19/24 folic acid 1 mg tablet 1 mg PO DAILY #90 caps 09/20/24 clobetasol 0.05 % topical ointment 1 appl topical BID 2 weeks #60 11/14/24 grams simvastatin 10 mg tablet 10 mg PO QPM 90 days #90 tabs 11/20/24 apixaban 5 mg tablet (Eliquis) 5 mg PO BID #60 tabs 11/23/24 oxycodone-acetaminophen 10 mg-325 See Rx Instructions .Route Q6H PRN 01/05/25 mg tablet pain #240 tabs Allergies Allergy/AdvReac Type Severity Reaction Status Date / Time hydrochlorothiazide AdvReac Intermediate elevation Verified 01/15/25 04:49 of BP Review of Systems 2 Review of Systems: Yes all other systems are reviewed and are negative [facility] Past Medical History Medical History (Updated 01/15/25 @ 06:45 by Cesar Hurtado MD) Medicare annual wellness visit, initial Colonoscopy refused AAA (abdominal aortic aneurysm) Impaired glucose tolerance Cervical nerve root compression Psoriasis Hypertension Hypothyroid Hypercholesterolemia Tobacco abuse Surgical History History of facial surgery H/O arthroscopy of left knee History of AAA (abdominal aortic aneurysm) repair Family History Family History Father Hypertension CVD (cardiovascular disease) Mother CVD (cardiovascular disease) Brother No problems noted. Brother No problems noted. Daughter No problems noted. Sister No problems noted. Sister No problems noted. Sister No problems noted. Sister No problems noted. 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 Oriented X3. No acute distress. Eyes: PERRLA, No Nystagmus ENT: Pharynx normal. Oral Mucosa moist Neck: Normal inspection. Neck supple. CVS: Normal heart rate and rhythm. Pulses normal. Respiratory: No respiratory distress. Equal air entry bilateral, no wheezing/rales/rhonchi Abdomen: Soft and nontender. Bowel sounds are present, no mass palpable, no CVA tenderness Skin: Skin warm and dry. Normal skin color. Normal skin turgor. Extremities: No lower extremity edema. No calf tenderness Neuro: Oriented X 3. No motor deficit. No sensory deficit.No cerebellar signs , cranial nerves II-XII intact Medical Decision Making Medical Decision Making [facility] Narrative: Patient with acute weakness of the left side with a rapid improvement within 5 minutes with history of AFib on Eliquis CTA negative for acute LVO plain CT also negative for acute stroke will admit patient for further evaluation Differential Diagnosis Differential Diagnoses: The differential diagnosis associated with the presentation includes Admission/Observation Consideration of admission/observation: Escalation of care including admission/observation considered Consult Healthcare Provider Management of the patient was discussed with: Hospitalist Lab Data [facility] Lab Attestation statement: I reviewed the patient's lab results. 01/15/25 05:08 01/15/25 05:08 Labs: Lab Results 01/15/25 01/15/25 Range/Units 04:20 05:08 WBC 5.7 (4.8-10.8) X10*3/uL RBC 4.12 L (4.60-5.80) X10*6/uL Hgb 12.5 L (14.0-18.0) g/dl Hct 36.3 L (42.0-52.0) % MCV 88.1 (80.0-98.0) fL MCH 30.3 (27.0-33.0) pg MCHC 34.4 (31.0-36.0) g/dl RDW 13.2 (11.0-16.0) % Plt Count 156 L (160-400) X10*3/uL MPV 9.1 L (9.4-12.4) fL Immature Gran % (Auto) 0.3 (0.0-0.4) % Neut % (Auto) 62.3 (45-73) % Lymph % (Auto) 25.8 (20-40) % [place] % (Auto) 8.9 (2-11) % Eos % (Auto) 2.4 (0-4) % Baso % (Auto) 0.3 (0-2) % Lymph # (Auto) 1.5 (1.2-4.9) X10*3/uL [place] # (Auto) 0.5 (0.1-1.2) X10*3/uL Eos # (Auto) 0.1 (0.0-0.4) X10*3/uL Baso # (Auto) 0.0 (0.0-0.2) X10*3/uL Abs Immat Gran (auto) 0.02 (0.00-0.03) X10*3/uL Absolute Neuts (auto) 3.6 (2.0-8.3) x10*3/uL Absolute Nucleated RBC 0.000 (0.0-0.012) X10*3/uL Nucleated RBC % (auto) 0.0 (0.0-0.2) /100WBC PT 16.0 H (10.9-12.4) SEC INR 1.4 H (0.9-1.1) APTT 37.3 H (26.0-36.8) SEC Sodium 145 (135-145) mmol/L Potassium 3.5 (3.3-5.1) mmol/L Chloride 107 (96-108) mmol/L Carbon Dioxide 27 (22-29) mmol/L Anion Gap 15 (12-20) BUN 8 L (9-16) mg/dL Creatinine 1.24 (0.5-1.4) mg/dL Estim Creat Clear Calc 52.3 Estimated GFR 57 POC Glucose 128 H (60-115) mg/dL Random Glucose 93 (60-115) mg/dL Calcium 9.6 (8.4-10.2) mg/dL Troponin I High Sens 3.5 (<3.5-35.0) ng/L Triglycerides 293 H (<150) mg/dL Cholesterol 170 (<200) mg/dL LDL Cholesterol, Calc 80 (<100) mg/dL HDL Cholesterol 32 L (>40) mg/dL Independent Interpretation I performed an independent interpretation of an: EKG and CT Scan Interpretation: Normal sinus rhythm heart rate 60 beats per minute normal interval normal axis no acute ST-T no acute ischemia Radiology Impression Discussion of test interpretation with radiology: I discussed test interpretation with the radiologist and I have reviewed the radiologist's reading. Radiologist Impression: [address] [address] [address] Scan Report Signed with Gracia Patient: Jose Rafael Cameron MR#: [id number] : 1950 Acct:[id number] Age/Sex: 74 / M ADM Date: 01/15/25 Loc: HO.ED Attending Dr: Ordering Physician: Cesar Hurtado MD Date of Service: 01/15/25 Procedure(s): CT angio head neck STROKE Accession Number(s): [id number] cc: Anne-Marie Perez MD; Cesar Hurtado MD~ Report Number: [id number]: Total DLP = 753.00 mGy-cm ADDENDUMThis document has been electronically signed by: Bautista Cintron MD on 01/15/2025 05:14:18 ADDENDUM: Receipt of this report by the clinical staff was confirmed with Corrina Rivers on Jan 15, 2025 05:42:00 EDT. This document has been electronically signed by: Claudia Zarate on 01/15/2025 05:42:37 Addendum Dictated By: Bautista Cintron MD Addendum Signed By: <Electronically signed by Bautista Cintron MD in OV> 01/15/25542 Addendum Cosigned By: DD/ /03/514 TD/TT: 01/15/2504/03/542 CLINICAL HISTORY: Stroke Protocol : l sided weakness CT angiography head and neck with contrast. 3D Postprocessing. Comparison: None Findings: There is moderate to severe stenosis origin left vertebral artery. Left vertebral artery is dominant. 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 No stenoses visualized of the common carotid,brachiocephalic or subclavian arteries. Calcific plaques within the carotid bulbs and proximal internal carotid arteries with approximately 20-30% diameter stenosis right internal carotid artery. There is approximately 30-40% diameter stenosis proximal left internal carotid artery. Intracranial arteries are patent. No aneurysm, dissection, hemodynamically significant stenoses, or occlusion. No abnormal intracranial enhancement. See CT head report for description of intracranial findings The visualized thyroid gland is unremarkable. No cervical mass or fluid collection. Lung apices clear. No acute fracture. 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 NIH Stroke Scale Internal: Initial- Upon Arrival Level of Consciousness: Alert Level of Consciousness Questions: Answers both questions correctly Level of Consciousness Commands: Performs both tasks correctly Best Gaze: Normal Visual: No visual loss Facial Palsy: Normal Motor Arm (Right): No drift Motor Arm (Left): No drift Motor Leg (Right): No drift Motor Leg (Left): No drift Limb Ataxia: Absent Sensory: Normal Best Language: No aphasia Dysarthia: Normal Extinction and Inattention: No abnormality Score: 0 Discharge Plan Discharge Clinical Impression: Transient cerebral ischemia Patient Disposition: Admitted As Inpatient
--- NOTE | 2025-01-15 04:24 | ECG_ITS ---
Test Reason : STROKE Blood Pressure : */* mmHG Vent. Rate : 60 BPM Atrial Rate : 60 BPM P-R Int : 160 ms QRS Dur : 92 ms QT Int : 440 ms P-R-T Axes : 62 39 69 degrees QTcB Int : 440 ms Normal sinus rhythm Normal ECG When compared with ECG of 19-Aug-2009 05:50, Criteria for Inferior infarct are no longer Present Referred By: Cesar Hurtado Electronically Signed By: KATARINA POLO
[2025-01-15 04:26] LABS: Glucose, Whole Blood 128 mg/dL (60-115)
[2025-01-15 05:12] LABS: Basophils Percent Auto 0.3 % (0-2); Eosinophils Absolute Auto 0.1 X10*3/uL (0.0-0.4); Eosinophils Percent Auto 2.4 % (0-4); Hematocrit 36.3 % (42.0-52.0); Hemoglobin 12.5 g/dl (14.0-18.0); Imm Gran Abs Auto 0.02 X10*3/uL (0.00-0.03); Imm Gran Pct Auto 0.3 % (0.0-0.4); Lymphocytes Absolute Auto 1.5 X10*3/uL (1.2-4.9); Lymphocytes Percent Auto 25.8 % (20-40); MANUAL DIFF FLAG NO; Mean Corpuscular HGB Conc 34.4 g/dl (31.0-36.0); Mean Corpuscular Hemoglobin 30.3 pg (27.0-33.0); Mean Corpuscular Volume 88.1 fL (80.0-98.0); Mean Platelet Volume 9.1 fL (9.4-12.4); Monocytes Absolute Auto 0.5 X10*3/uL (0.1-1.2); Monocytes Percent Auto 8.9 % (2-11); Neutrophils Absolute Auto 3.6 x10*3/uL (2.0-8.3); Neutrophils Percent Auto 62.3 % (45-73); Platelet Count 156 X10*3/uL (160-400); Red Blood Count 4.12 X10*6/uL (4.60-5.80); Red Cell Distribution Width 13.2 % (11.0-16.0); White Blood Count 5.7 X10*3/uL (4.8-10.8)
[2025-01-15 05:20] LABS: INTERNATIONAL NORM RATIO 1.4 (0.9-1.1)
[2025-01-15 05:22] LABS: Partial Thromboplastin Time 37.3 SEC (26.0-36.8)
[2025-01-15 05:25] LABS: Stroke Lab Use COMPLETE
[2025-01-15 05:26] LABS: Anion Gap 15 (12-20); Blood Urea Nitrogen 8 mg/dL (9-16); Calcium 9.6 mg/dL (8.4-10.2); Carbon Dioxide 27 mmol/L (22-29); Chloride 107 mmol/L (96-108); Cholesterol 170 mg/dL (<200); Creatinine Clr Calc Pharmacy 52.3; Estimated Glomerular Filt Rate 57; Glucose Random 93 mg/dL (60-115); HDL Cholesterol 32 mg/dL (>40); LDL Cholesterol Calculated 80 mg/dL (<100); Potassium 3.5 mmol/L (3.3-5.1); Sodium 145 mmol/L (135-145); Triglycerides 293 mg/dL (<150)
[2025-01-15 05:33] LABS: Troponin-I High Sensitivity 3.5 ng/L (<3.5-35.0)
--- NOTE | 2025-01-15 05:56 | P.HPHOSP_ITS ---
History of Present Illness Date of Service: 01/15/25 Chief Complaint: left sided Tingling 74-year-old male with a past medical history of HTN, HLD, tobacco dependence, CKD, AA, paroxysmal AFib on Eliquis, trigeminal neuralgia, hypothyroidism, abdominal wall hernia, anemia, anxiety; presented to the hospital with a chief complaint of left-sided tingling/weakness. Patient reported that he was watching TV around 03:40 he noticed left-sided tingling and weakness; subsequent he went upstairs and called ambulance and came to the ER for further evaluation. Denies any chest pain or palpitations. Mentions that his symptoms lasted for about 5 minutes and resolved by the time ambulance team came to pick him up. Mentions currently he is back to his baseline. Denies any numbness tingling or focal weakness. Denies any GI or symptoms. Reports he has been compliant with his home medications including Eliquis Review of all other systems is negative except mentioned above ER course: Per ER team, patient's exam was nonfocal; NIH stroke scale was 0; CT head showed no acute findings; CTA showed no LVO. Patient already on Eliquis. [facility] Medical History Medicare annual wellness visit, initial Colonoscopy refused AAA (abdominal aortic aneurysm) Impaired glucose tolerance Cervical nerve root compression Psoriasis Hypertension Hypothyroid Hypercholesterolemia Tobacco abuse Family History Father Hypertension CVD (cardiovascular disease) Mother CVD (cardiovascular disease) Brother No problems noted. Brother No problems noted. Daughter No problems noted. Sister No problems noted. Sister No problems noted. Sister No problems noted. Sister No problems noted. 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 Cognitive needs: No Hearing needs: No Vision needs: Yes Meds Allergies Allergy/AdvReac Type Severity Reaction Status Date / Time hydrochlorothiazide AdvReac Intermediate elevation Verified 01/15/25 04:49 of BP Active Medications: Current Medications Acetaminophen (Acetaminophen 325 Mg Tablet) 650 mg PO Q6H PRN PRN Reason: Pain, Mild 1-3,fever,headache Apixaban (Apixaban 5 Mg Tablet) 5 mg PO BID JAY JAY Atorvastatin Calcium (Atorvastatin Calcium 80 Mg Tablet) 80 mg PO DAILY JAY JAY Benzonatate (Benzonatate 100 Mg Capsule) 100 mg PO TID PRN PRN Reason: Cough Calcium Carbonate (Calcium Carbonate 750 Mg Tab.Chew) 750 mg PO Q4H PRN PRN Reason: Heartburn Levothyroxine Sodium (Levothyroxine Sodium 125 Mcg Tablet) 125 mcg PO DAILY@0600 JAY JAY Magnesium Hydroxide (Milk Of Magnesia 30 Ml Oral.Susp) 30 ml PO DAILY PRN PRN Reason: Constipation Melatonin (Melatonin 3 Mg Tablet) 6 mg PO BEDTIME PRN PRN Reason: Insomnia Home Medications ?Medication ?Instructions ?Recorded ?Confirmed ?Last Taken ?Type cholecalciferol (vitamin D3) 25 25 mcg PO DAILY 05/31/20 01/15/25 02/19/23 History mcg (1,000 unit) capsule cyanocobalamin (vitamin B-12) 1,000 mcg PO MOFR 05/31/20 01/15/25 02/19/23 History 1,000 mcg capsule clobetasol 0.05 % topical ointment 1 appl topical BID PRN Rash 01/15/25 01/15/25 Unknown History diazepam 5 mg tablet (Valium) 5 mg PO BID PRN anxiety 01/15/25 01/15/25 Unknown History levothyroxine 125 mcg tablet 125 mcg PO MOTUWETHFRSA 01/15/25 01/15/25 Unknown History levothyroxine 125 mcg tablet 187.5 mcg PO HONEYCUTT 01/15/25 01/15/25 Unknown History oxycodone-acetaminophen 10 mg-325 1 - 2 tab PO Q6H PRN pain 01/15/25 01/15/25 01/15/25 01:00 History mg tablet simvastatin 10 mg tablet 10 mg PO BEDTIME 01/15/25 01/15/25 Unknown History Physical Exam 2 Vital Signs and Narrative: Vital Signs: Last Vital Signs Temp 98.3 F 01/15/25 04:47 Pulse 54 01/15/25 05:45 Resp 18 01/15/25 05:45 BP 140/61 H 01/15/25 05:45 Pulse Ox 98 01/15/25 05:45 O2 Del Method Room Air 01/15/25 05:45 BMI result Body Mass Index 25.8 Gen: Appears be in no acute distress HEENT: NCAT, Moist mucosa. Pulmonary: Vesicular breath sounds, fair air entry CVS: Normal S1-S2 Abdomen: BS+, Soft, Nontender Extremities: Warm well perfused Neuro: Alert and awake. Grossly nonfocal Results Labs 01/15/25 05:08 01/15/25 05:08 Labs: Laboratory Results - last 24 hr 01/15/25 01/15/25 04:20 05:08 MCV 88.1 MCH 30.3 MCHC 34.4 RDW 13.2 Plt Count 156 L MPV 9.1 L Immature Gran % (Auto) 0.3 Neut % (Auto) 62.3 Lymph % (Auto) 25.8 [place] % (Auto) 8.9 Eos % (Auto) 2.4 Baso % (Auto) 0.3 Lymph # (Auto) 1.5 [place] # (Auto) 0.5 Eos # (Auto) 0.1 Baso # (Auto) 0.0 Abs Immat Gran (auto) 0.02 Absolute Neuts (auto) 3.6 Absolute Nucleated RBC 0.000 Nucleated RBC % (auto) 0.0 PT 16.0 H INR 1.4 H APTT 37.3 H Anion Gap 15 Estim Creat Clear Calc 52.3 Estimated GFR 57 POC Glucose 128 H Random Glucose 93 Calcium 9.6 Troponin I High Sens 3.5 Triglycerides 293 H Cholesterol 170 LDL Cholesterol, Calc 80 HDL Cholesterol 32 L Assessment and Plan (1) TIA (transient ischemic attack): Status: Acute Plan 74-year-old male with a past medical history of HTN, HLD, tobacco dependence, CKD, AA, paroxysmal AFib on Eliquis, trigeminal neuralgia, hypothyroidism, abdominal wall hernia, anemia, anxiety; presented to the hospital with a chief complaint of left-sided tingling/weakness. Resolved by the time EMS came in. Admitted for TIA. TIA: Patient had brief left-sided tingling/weakness which currently resolved. CT head showed no acute findings CT angio head and neck showed no LVO Neuro checks Telemetry Echo MRI brain Neurology consult PT/OT/RESIN MAKER eval Fall precautions Patient already on Eliquis We will keep the patient on Lipitor Hypertension: Continue home atenolol Hyperlipidemia: Continue statin Paroxysmal AFib: Continue Eliquis Hypothyroidism: Continue levothyroxine Med reconsideration: Pharmacy consult in a.m. for med reconciliation and resuming home medications accordingly DVT prophylaxis: Patient on liquids Code status: Full code Quality Stroke Does the patient have a stroke diagnosis?: No VTE Prior VTE?: No VTE Risk Level:: Medical - moderate - high VTE Device Contraindication: Treatment Not Indicated VTE Drug Contraindication: N/A - Med Ordered
--- NOTE | 2025-01-15 08:10 | PC.NURSE ---
Bedside swallow screen done prior to PO administration by this RN. Pt able to swallow effectively- no delayed/effort in swallow.
--- NOTE | 2025-01-15 08:10 | PC.NURSE ---
Bedside swallow screen dont prior to PO administration by this RN. Pt able to swallow effectively- no delayed/effort in swallow.
[2025-01-15] MEDS: Apixaban 5 MG TABLET PO ×2 (08:17→20:08)
[2025-01-15] MEDS: Levothyroxine Sodium 125 MCG TABLET PO (08:17)
--- NOTE | 2025-01-15 08:18 | PM.EVENT ---
Event Note Date of Service: 01/15/25 Event Note: Seen and examined, admitted this morning with 74-year-old male with a past medical history of HTN, HLD, tobacco dependence, CKD, AA, paroxysmal AFib on Eliquis, trigeminal neuralgia, hypothyroidism, abdominal wall hernia, anemia, anxiety; presented to the hospital with a chief complaint of left-sided tingling/weakness, symptoms resolved and no acute finding on imaging. TIA: Patient had brief left-sided tingling/weakness which currently resolved, CT H and CTA H and N unremarkable. Neuro consult MRI Echo tomorrow PT/OT continue eliquis, Lipitor and add baby ASA, Neuro checks Hypertension: Continue home atenolol Hyperlipidemia: Continue statin Paroxysmal AFib: Continue Eliquis Hypothyroidism: Continue levothyroxine Med rec pending Time Spent With Patient Time: Total time managing care of this patient today ____ minutes.
--- NOTE | 2025-01-15 09:45 | PHA.MEDREC ---
Addendum entered by Trent Carrasco RPh 01/15/25 11:56: MED REC WAS REVIEWED BY [facility]. Original Note: Pharmacy Consult ? Medication Reconciliation Pharmacy has completed the medication reconciliation. Spoke with patient to confirm medications. He takes 1 and 1/2 tab of levothyroxine on sundays. He takes vitamin B12 on Thursday and Thursday. He uses Diazepam as needed (LF per PDMP 05/2024 x90 tabs). He took eliquis last night and percocet around 1 am this morning.
--- NOTE | 2025-01-15 13:35 | PC.NURSE ---
Pt states he will only take atorvastatin at night, does not want it this morning. MD made aware by previous shift RN.
--- NOTE | 2025-01-15 13:46 | PC.NURSE ---
Pt ambulates w/steady gait to restroom, denies dizziness/numbness/tingling/weakness/visual changes
--- NOTE | 2025-01-15 14:21 | PC.NURSE ---
Pt transported to MRI via stretcher
--- NOTE | 2025-01-15 16:46 | P.CNNE_ITS ---
History of Present Illness Data of Consult Service Date: 01/15/25 Primary Care Provider: Anne-Marie Perez MD [facility] Reason for consult: transient left sided tingling This is a 74-year-old male with a h/o HTN, HLD, tobacco dependence, CKD, AA, paroxysmal AFib on Eliquis, trigeminal neuralgia, hypothyroidism, abdominal wall hernia, anemia, anxiety; presented to the hospital with a chief complaint of left-sided tingling/weakness around 03:40 lasting 5 minutes followed by complete resolution an dno recurrence. . CTA negative with <40 % stenosis of carotids and normal intracranial CTA. MRI shows no acute stroke / diffusion abnormality. Mild microvacsular white matter changes and atrophy. [facility] Past Medical History Medical History (Updated 01/15/25 @ 06:45 by Cesar Hurtado MD) Medicare annual wellness visit, initial Colonoscopy refused AAA (abdominal aortic aneurysm) Impaired glucose tolerance Cervical nerve root compression Psoriasis Hypertension Hypothyroid Hypercholesterolemia Tobacco abuse Family History Family History Father Hypertension CVD (cardiovascular disease) Mother CVD (cardiovascular disease) Brother No problems noted. Brother No problems noted. Daughter No problems noted. Sister No problems noted. Sister No problems noted. Sister No problems noted. Sister No problems noted. Surgical History Surgical History History of facial surgery H/O arthroscopy of left knee History of AAA (abdominal aortic aneurysm) repair Social History Social History Housing: House Alcohol intake: never Patient Tobacco Use Status: Never used Tobacco Tobacco use type: Cigarette Cigarette Packs Per Day: 0.5 Cigarettes Per Day: 5 Smoked in Last 30 Days: Yes e-Cigarette/Vaping Use: Never Used Second Hand Smoke Exposure: Yes Use of substances other than those prescribed or required for medical reasons: No Advance Directives: No Nutrition Risks: No Nutritional Risk service: Yes Current occupational status: retired 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 Cognitive needs: No Hearing needs: No Vision needs: Yes Meds Allergies Allergy/AdvReac Type Severity Reaction Status Date / Time hydrochlorothiazide AdvReac Intermediate elevation Verified 01/15/25 04:49 of BP Active Medications: Current Medications Acetaminophen (Acetaminophen 325 Mg Tablet) 650 mg PO Q6H PRN PRN Reason: Pain, Mild 1-3,fever,headache Apixaban (Apixaban 5 Mg Tablet) 5 mg PO BID [facility] Last Admin: 01/15/25 08:17 Dose: 5 mg Atenolol (Atenolol 50 Mg Tablet) 50 mg PO BID [facility]; Protocol Last Admin: 01/15/25 15:19 Dose: Not Given Atorvastatin Calcium (Atorvastatin Calcium 80 Mg Tablet) 80 mg PO BEDTIME JAY JAY Benzonatate (Benzonatate 100 Mg Capsule) 100 mg PO TID PRN PRN Reason: Cough Betamethasone Dipropion Augmented (Betamethasone Dip Aug 0.05% Cr 15 Gm Tube) 1 appl TOPICAL BID PRN PRN Reason: Rash Calcium Carbonate (Calcium Carbonate 750 Mg Tab.Chew) 750 mg PO Q4H PRN PRN Reason: Heartburn Cyanocobalamin (Cyanocobalamin (Vitamin B-12) 1,000 Mcg Tablet) 1,000 mcg PO MOFR [facility] Diazepam (Diazepam 5 Mg Tablet) 5 mg PO BID PRN PRN Reason: anxiety Folic Acid (Folic Acid 1 Mg Tablet) 1 mg PO DAILY [facility] Levothyroxine Sodium (Levothyroxine Sodium 125 Mcg Tablet) 125 mcg PO MoTuWeThFrSa@0600 [facility] Levothyroxine Sodium (Levothyroxine Sodium 125 Mcg Tablet) 187.5 mcg PO Honeycutt@0600 [facility] Magnesium Hydroxide (Milk Of Magnesia 30 Ml Oral.Susp) 30 ml PO DAILY PRN PRN Reason: Constipation Melatonin (Melatonin 3 Mg Tablet) 6 mg PO BEDTIME PRN PRN Reason: Insomnia Oxycodone HCl (Oxycodone Hcl Immed Release 5 Mg Tablet) 10 mg PO Q6H PRN PRN Reason: Pain, Severe (Pain Scale 7-10) Vitamin D (Cholecalciferol (Vitamin D3) 25 Mcg Tablet) 25 mcg PO DAILY [facility] Home Medications ?Medication ?Instructions ?Recorded ?Confirmed ?Last Taken ?Type cholecalciferol (vitamin D3) 25 25 mcg PO DAILY 05/31/20 01/15/25 02/19/23 History mcg (1,000 unit) capsule cyanocobalamin (vitamin B-12) 1,000 mcg PO MOFR 05/31/20 01/15/25 02/19/23 History 1,000 mcg capsule clobetasol 0.05 % topical ointment 1 appl topical BID PRN Rash 01/15/25 01/15/25 Unknown History diazepam 5 mg tablet (Valium) 5 mg PO BID PRN anxiety 01/15/25 01/15/25 Unknown History levothyroxine 125 mcg tablet 125 mcg PO MOTUWETHFRSA 01/15/25 01/15/25 Unknown History levothyroxine 125 mcg tablet 187.5 mcg PO HONEYCUTT 01/15/25 01/15/25 Unknown History oxycodone-acetaminophen 10 mg-325 1 - 2 tab PO Q6H PRN pain 01/15/25 01/15/25 01/15/25 01:00 History mg tablet simvastatin 10 mg tablet 10 mg PO BEDTIME 01/15/25 01/15/25 Unknown History Physical Exam 2 Vital Signs: Vital Signs: Last Vital Signs Temp 97.7 F 01/15/25 15:33 Pulse 50 01/15/25 15:33 Resp 11 L 01/15/25 15:33 BP 163/66 H 01/15/25 15:33 Pulse Ox 97 01/15/25 15:33 O2 Del Method Room Air 01/15/25 15:33 BMI result Body Mass Index 25.8 Neuro: Other: Normal non focal exam Results Labs 01/15/25 05:08 01/15/25 05:08 Labs: Short CBC 01/15/25 Range/Units 05:08 WBC 5.7 (4.8-10.8) X10*3/uL Hgb 12.5 L (14.0-18.0) g/dl Hct 36.3 L (42.0-52.0) % Plt Count 156 L (160-400) X10*3/uL BMP 01/15/25 05:08 Sodium 145 Potassium 3.5 Chloride 107 Carbon Dioxide 27 BUN 8 L Creatinine 1.24 Calcium 9.6 Assessment and Plan (1) TIA (transient ischemic attack): Status: Acute HX suggestive of sensory TIA. No evidence of stroke on MRI. No significant abnormality on head and neck CTA. Patient is already on Eliquis. Nothing additional is necessary. Continue current meds Procedures Date of Service Date of Service: 01/15/25
[2025-01-15] MEDS: oxyCODONE HCl Immed Release 5 MG TABLET 10 MG PO (17:30)
[2025-01-15] MEDS: atenoloL 50 MG TABLET PO (20:08)
[2025-01-15] MEDS: Atorvastatin Calcium 80 MG TABLET PO (20:08)
--- NOTE | 2025-01-15 20:10 | PC.NURSE ---
No diet ordered. Bedside swallow passed. PO meds admin.
[2025-01-16 03:18] VITALS: BP 159/76; PULSE 51; RESP 18; TEMP 37.6; O2SAT 95
[2025-01-16] MEDS: Levothyroxine Sodium 125 MCG TABLET PO (05:34)
[2025-01-16 07:36] LABS: MANUAL DIFF FLAG NO
[2025-01-16 07:43] LABS: Basophils Percent Auto 0.3 % (0-2); Hematocrit 35.8 % (42.0-52.0); Hemoglobin 12.1 g/dl (14.0-18.0); Imm Gran Abs Auto 0.03 X10*3/uL (0.00-0.03); Imm Gran Pct Auto 0.5 % (0.0-0.4); Lymphocytes Absolute Auto 1.8 X10*3/uL (1.2-4.9); Lymphocytes Percent Auto 28.4 % (20-40); Mean Corpuscular HGB Conc 33.8 g/dl (31.0-36.0); Mean Corpuscular Volume 88.6 fL (80.0-98.0); Mean Platelet Volume 9.5 fL (9.4-12.4); Monocytes Absolute Auto 0.6 X10*3/uL (0.1-1.2); Monocytes Percent Auto 9.3 % (2-11); Neutrophils Percent Auto 61.5 % (45-73); Platelet Count 144 X10*3/uL (160-400); Red Blood Count 4.04 X10*6/uL (4.60-5.80); White Blood Count 6.4 X10*3/uL (4.8-10.8)
[2025-01-16 07:47] VITALS: BP 147/69; PULSE 56; RESP 17; TEMP 36.9; O2SAT 95
[2025-01-16 07:55] LABS: Cholesterol 158 mg/dL (<200); HDL Cholesterol 31 mg/dL (>40); LDL Cholesterol Calculated 100 mg/dL (<100); Triglycerides 138 mg/dL (<150)
--- NOTE | 2025-01-16 08:50 | P.DS_ITS ---
DS: Providers Provider Date of Service: 01/16/25 Date of admission: 01/15/25 05:51 Date of discharge: 01/16/25 Primary care physician: Anne-Marie Perez MD Consults: 01/15/25 05:51 Consult to Neurology Routine Consulting Provider: Dalila Amaral Reason for consultation: TIA DS: Diagnosis Discharge Diagnosis (1) TIA (transient ischemic attack): Status: Resolved DS: Summary Hospital Course Hospital Course: admission hpi Chief Complaint: left sided Tingling 74-year-old male with a past medical history of HTN, HLD, tobacco dependence, CKD, AA, paroxysmal AFib on Eliquis, trigeminal neuralgia, hypothyroidism, abdominal wall hernia, anemia, anxiety; presented to the hospital with a chief complaint of left-sided tingling/weakness. Patient reported that he was watching TV around 03:40 he noticed left-sided tingling and weakness; subsequent he went upstairs and called ambulance and came to the ER for further evaluation. Denies any chest pain or palpitations. Mentions that his symptoms lasted for about 5 minutes and resolved by the time ambulance team came to pick him up. Mentions currently he is back to his baseline. Denies any numbness tingling or focal weakness. Denies any GI or symptoms. Reports he has been compliant with his home medications including Eliquis Review of all other systems is negative except mentioned above ER course: Per ER team, patient's exam was nonfocal; NIH stroke scale was 0; CT head showed no acute findings; CTA showed no LVO. Patient already on Eliquis.' hospital course: Patient presenting with transient left sided tingingling, CT head, CTA of head and neck and MRI all show no evidence of acute stroke. His presentation is consitent with TIA. He takes Eliquis for AFIB, Neurologist recommends no changes at this time and to continue curent meds Time Attestation Discharge Coordination Time (in mins): 35 Quality: Safe Use of Opioids Does Pt have an Active Cancer Diagnosis on the Problem List?: No Quality: Stroke Does the patient have a stroke diagnosis?: No Physical Exam Vital Signs: Vital Signs: Last Vital Signs Temp 98.4 F 01/16/25 07:47 Pulse 56 01/16/25 07:47 Resp 17 01/16/25 07:47 BP 147/69 H 01/16/25 07:47 Pulse Ox 95 01/16/25 07:47 O2 Del Method Room Air 01/16/25 07:47 BMI result Body Mass Index 26.0 DS: Data Data Completed and Pending Labs on day of discharge: Laboratory Results - last 24 hr 01/16/25 07:16 WBC 6.4 RBC 4.04 L Hgb 12.1 L Hct 35.8 L MCV 88.6 MCH 30.0 MCHC 33.8 RDW 13.0 Plt Count 144 L MPV 9.5 Immature Gran % (Auto) 0.5 H Neut % (Auto) 61.5 Lymph % (Auto) 28.4 [place] % (Auto) 9.3 Eos % (Auto) 0.0 Baso % (Auto) 0.3 Lymph # (Auto) 1.8 [place] # (Auto) 0.6 Eos # (Auto) 0.0 Baso # (Auto) 0.0 Abs Immat Gran (auto) 0.03 Absolute Neuts (auto) 4.0 Absolute Nucleated RBC 0.000 Nucleated RBC % (auto) 0.0 Triglycerides 138 Cholesterol 158 LDL Cholesterol, Calc 100 H HDL Cholesterol 31 L Discharge Plan Discharge Anticipated Discharge Date/Time: 01/16/25 08:42 Patient Disposition: Home, Self-Care Discharge Diagnosis: TIA Referrals: Po,Anne-Marie Guevara MD [Primary Care Provider, Internal Medicine] - 1 Week Discharge Medications: New atorvastatin 40 mg tablet 40 mg PO BEDTIME Qty: 90 0RF Continued folic acid 1 mg tablet 1 mg PO DAILY Qty: 90 1RF Eliquis 5 mg tablet 5 mg PO BID Qty: 60 3RF oxycodone-acetaminophen 10-325 mg tablet 1 - 2 tab PO Q6H PRN (Reason: pain) clobetasol 0.05 % ointment 1 appl topical BID PRN (Reason: Rash) diazepam [Valium] 5 mg tablet 5 mg PO BID PRN (Reason: anxiety) cholecalciferol (vitamin D3) 25 mcg (1,000 unit) capsule 25 mcg PO DAILY cyanocobalamin (vitamin B-12) 1,000 mcg capsule 1,000 mcg PO MOFR Rx Instructions: taking twice a week atenolol 50 mg tablet 50 mg PO BID Qty: 180 2RF Discontinued simvastatin 10 mg tablet 10 mg PO BEDTIME No Action levothyroxine 125 mcg tablet 187.5 mcg PO HONEYCUTT Qty: 18 3RF levothyroxine 125 mcg tablet 125 mcg PO MOTUWETHFRSA Qty: 90 3RF Rx Instructions: Except thursday tabs 1.5 tabs Discharge Orders: Discharge Order (Routine); Ordered 01/16/25 Ordered By: Tomas Little Diet: Advance to usual diet Activity on Discharge: As tolerated Stand Alone Forms: Patient Portal Discharge page Print Language: Bhutanese Care Plan Goals: recovery from TIA Health Concerns: TIA, AFIB Plan of Treatment: continue all your medications as before and follow up your Doctor Assessment: See above Discharge Date/Time: 01/16/25 10:21
[2025-01-16] MEDS: Cholecalciferol (Vitamin D3) 25 MCG TABLET PO (09:25)
[2025-01-16] MEDS: atenoloL 50 MG TABLET PO (09:25)
[2025-01-16] MEDS: Apixaban 5 MG TABLET PO (09:25)
[2025-01-16] MEDS: Folic Acid 1 MG TABLET PO (09:25)
--- NOTE | 2025-01-16 09:44 | MHC.CM.PN ---
IMM 01/16. Pt self-care, lives at home with his and daughter. Pt is medically cleared for discharge home self-care today, his will transport him home. PCP: Dr. Xie Po
== END 2025-01-16 10:21 | disposition home or self-care (01) | DRG 69 ==
LOC: HO.ED 05:38 → HO.EDOVER 06:25 → HO.IMC 15:21
PROVIDERS: Admitting Provider Hospitalist; Emergency Provider Internal Medicine; PCP Internal Medicine; Visit Provider Internal Medicine
DX: G45.9 Transient cerebral ischemic attack, unspecified (principal); I48.0 Paroxysmal atrial fibrillation; E03.9 Hypothyroidism, unspecified; N18.31 Chronic kidney disease, stage 3a; I12.9 Hypertensive chronic kidney disease with stage 1 through stage 4 chronic kidney disease, or unspecified chronic kidney disease; F17.210 Nicotine dependence, cigarettes, uncomplicated; Z71.6 Tobacco abuse counseling; Z79.01 Long term (current) use of anticoagulants; Z79.890 Hormone replacement therapy; Z79.899 Other long term (current) drug therapy
CPT/HCPCS: 36415; 70450; 70496; 70498; 70551; 80048; 80061; 82947; 84484; 85025; 85610; 85730; 93005; 97161; 99285

== ENCOUNTER → 2025-01-15 04:24 | Outpatient (BNV) | payer MEDICARE, SELFPAY | PROVIDERS: Admitting Provider Hospitalist; Emergency Provider Internal Medicine; PCP Internal Medicine; Visit Provider Internal Medicine | DX: I63.9 Cerebral infarction, unspecified (principal) | CPT/HCPCS: 93010 ==

== ENCOUNTER → 2025-01-15 04:24 | Outpatient (BNV) | payer MEDICARE, SELFPAY | PROVIDERS: Emergency Provider Internal Medicine; Visit Provider Radiology Diagnostic Radiology | DX: I65.23 Occlusion and stenosis of bilateral carotid arteries (principal); G45.9 Transient cerebral ischemic attack, unspecified; G93.89 Other specified disorders of brain | CPT/HCPCS: 70551 ==

== ENCOUNTER → 2025-01-15 05:51 | Outpatient (BNV) | payer MEDICARE, SELFPAY | PROVIDERS: Admitting Provider Hospitalist; Emergency Provider Internal Medicine; PCP Internal Medicine; Visit Provider Psychiatry & Neurology Neurology | DX: G45.9 Transient cerebral ischemic attack, unspecified (principal) | CPT/HCPCS: 99222 ==

== ENCOUNTER → 2025-01-15 05:51 | Outpatient (BNV) | payer MEDICARE, SELFPAY | PROVIDERS: Admitting Provider Hospitalist; Emergency Provider Internal Medicine; PCP Internal Medicine; Visit Provider Internal Medicine | DX: G45.9 Transient cerebral ischemic attack, unspecified (principal) | CPT/HCPCS: 99223; 99499 ==

== ENCOUNTER 2025-01-26 13:41 | Outpatient (AMB) | payer MEDICARE, SELFPAY ==
--- NOTE | 2025-01-26 13:56 | MHC.OFFVIS ---
Vital Signs 01/26/25 13:57 Height 5 ft 10 in Weight 176 lb 5.917 oz BMI 25.3 BP 122/68 Blood Pressure Location Lt brachial Position Sitting Pulse 66 Pulse Source Pulse Oximeter Intake Visit Reasons: 4m follow up Allergies hydrochlorothiazide Adverse Reaction (Intermediate, Verified 01/15/25 04:49) elevation of BP Medication List - Last Reconciled 01/26/25 by Khadar Giron MD apixaban (Eliquis) 5 mg PO BID atenolol 50 mg PO BID cholecalciferol (vitamin D3) 25 mcg PO DAILY clobetasol 0.05% 1 appl topical BID PRN cyanocobalamin (vitamin B-12) 1,000 mcg PO MOFR diazepam (Valium) 5 mg PO BID PRN folic acid 1 mg PO DAILY levothyroxine 187.5 mcg (1.5 x 125 mcg) PO HONEYCUTT levothyroxine 125 mcg PO MOTUWETHFRSA oxycodone-acetaminophen 10-325 mg 1 - 2 tabs PO Q6H PRN simvastatin 10 mg PO QPM HPI Comments Details: Jose Rafael returns for follow-up. Few months back, he had a PCP visit when he was diagnosed with atrial fibrillation. Prior to that, he apparently had COVID infection and hence not clear if that precipitated the atrial fibrillation. Any case, when he came for a follow-up, he was already back in sinus rhythm. His beta-rosalba dose was increased around that time. Otherwise, has a history of vascular issues and [place] [facility] [place] No documented coronary disease. Recently, he had admission for possible TIA type event but recovered from that completely. It seems it happened in spite of taking Eliquis. After that, he is back to his normal self and no new concerns. No angina or in fact anything cardiac sounding. [facility] Medical History (Updated 01/26/25 @ 14:29 by Khadar Giron MD) Medicare annual wellness visit, initial Colonoscopy refused AAA (abdominal aortic aneurysm) Impaired glucose tolerance Cervical nerve root compression Psoriasis Hypertension Hypothyroid Hypercholesterolemia Tobacco abuse Surgical History History of facial surgery H/O arthroscopy of left knee History of AAA (abdominal aortic aneurysm) repair Family History Father Hypertension CVD (cardiovascular disease) Mother CVD (cardiovascular disease) Brother No problems noted. Brother No problems noted. Daughter No problems noted. Sister No problems noted. Sister No problems noted. Sister No problems noted. Sister No problems noted. 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 Cognitive needs: No Hearing needs: No Vision needs: Yes Review of Systems Const Denies weakness ENT Denies dizziness Card Denies chest pain, Denies chest pain with activity, Denies syncope, Denies rapid heart rate, Denies pedal edema, Denies edema, Denies leg edema, Denies lightheadedness, Denies palpitations, Reports dyspnea, Denies dyspnea on exertion and Denies orthopnea Resp Denies cough, Reports dyspnea and Denies dyspnea on exertion GI Denies hematochezia and Denies change in stool character Musc Denies abnormal gait, Denies muscle cramps, Denies muscle weakness, Denies numbness, Denies radiating pain into limb and Denies tingling Neuro Denies abnormal gait, Denies dizziness, Denies syncope, Denies numbness, Denies tingling and Denies weakness Endo Denies palpitations Physical Exam Vital Signs: Last Vital Signs Pulse 66 01/26/25 13:57 BP 122/68 01/26/25 13:57 BMI result Body Mass Index 25.3 Const General: comfortable and no acute distress Orientation/consciousness: patient oriented x3 HEENT Other: Unremarkable Head: Yes normal to inspection Neck Neck: Yes normal visual inspection Chest Chest palpation & inspection: normal inspection of the chest Resp Auscultation: clear to auscultation bilaterally Cardio Palpation: normal PMI Heart sounds: S1 normal heart sound present, S2 normal heart sound present, no gallops, no murmurs and no rubs GI Palpation (GI): Soft to palpation Back/Spine/Pelvis Other: unremarkable Skin General skin exam: no rashes or lesions noted Neuro General: patient oriented x3 Extrem General: Yes normal to inspection Psych Mental Status: mental status grossly normal Assessment & Plan Assessment & Plan (1) PAF (paroxysmal atrial fibrillation): Code(s): I48.0 - Paroxysmal atrial fibrillation Category: Medical (2) Hypertension: Code(s): I10 - Essential (primary) hypertension Category: Medical Qualifiers: Hypertension type: essential hypertension Qualified Code(s): I10 - Essential (primary) hypertension (3) TIA (transient ischemic attack): Code(s): G45.9 - Transient cerebral ischemic attack, unspecified Category: Medical Plan In the initial EKG, underlying rhythm is atrial fibrillation at a rate of 113/Min. Subsequent ones with sinus rhythm. Unclear if this happened because of COVID or not. He also has a history of vascular disease that that might have played a role. Any case, he is maintaining sinus rhythm on beta-blockers and can continue without changes. Continue with anticoagulation. With regard to the TIA type event, unclear etiology. He may continue the Eliquis without changes. With regard to hypertension, well controlled. He was on Amlodipine but not anymore. Otherwise, with regard to the dyslipidemia, he is on simvastatin. We discussed about switching it to atorvastatin but he would rather leave it as it is. Discussion Notes I discussed with the patient the likelihood of the recent event being a transient ischemic attack and the importance of monitoring for any recurrent symptoms. We reviewed the current management of atrial fibrillation with Eliquis and the potential benefits of switching to a more potent statin for cholesterol management. Patient was informed and verbally consented to the use of an ambient scribe for clinic note documentation during this visit. Patient Instructions: - Continue taking Eliquis as prescribed. - Monitor for any symptoms of a TIA and seek immediate medical attention if they occur. - Consider switching to a more potent statin. Coding Level of Care Code Est Pt Level 4 (40607) Complex EM visit Add On G2211 Diagnoses PAF (paroxysmal atrial fibrillation) I48.0 Essential hypertension I10 Hypertension type: essential hypertension TIA (transient ischemic attack) G45.9
[2025-01-26 13:57] VITALS: BP 122/68; PULSE 66; BMI 25.3
== END 2025-01-26 14:21 | disposition home or self-care (01) ==
LOC: HO.HCS 13:41
PROVIDERS: PCP Internal Medicine; Visit Provider Internal Medicine
DX: I48.0 Paroxysmal atrial fibrillation (principal); I10 Essential (primary) hypertension; G45.9 Transient cerebral ischemic attack, unspecified
CPT/HCPCS: 99214; G2211

== ENCOUNTER → 2025-01-26 13:41 | Outpatient (BNVA) | payer MEDICARE, SELFPAY | PROVIDERS: PCP Internal Medicine; Visit Provider Internal Medicine | DX: I48.0 Paroxysmal atrial fibrillation (principal); I10 Essential (primary) hypertension; G45.9 Transient cerebral ischemic attack, unspecified; Z79.01 Long term (current) use of anticoagulants | CPT/HCPCS: 99212 ==

== ENCOUNTER 2025-01-27 15:44 | Outpatient (AMB) | payer MEDICARE, SELFPAY ==
[2025-01-27 15:47] VITALS: BP 116/62; PULSE 60; TEMP 36.2; O2SAT 93; BMI 25.7
--- NOTE | 2025-01-27 15:47 | MHC.PC.OV ---
Vital Signs 01/27/25 15:47 Height 5 ft 10 in Weight 179 lb 2 oz BMI 25.7 BP 116/62 Blood Pressure Location Lt brachial Position Sitting Pulse 60 Pulse Source Pulse Oximeter Temp 97.1 F Temp Source Temporal Artery Scan Pulse Oximetry (%) 93 Oxygen Delivery Method Room Air Intake Visit Reasons: TCM [facility] [place] 01/16 TIA Pattern Cutter Required: No Accompanied by: Self / Same As Patient Allergies hydrochlorothiazide Adverse Reaction (Intermediate, Verified 01/27/25 15:56) elevation of BP Medication List - Last Reconciled 01/27/25 by Hilaria Haynes NP apixaban (Eliquis) 5 mg PO BID atenolol 50 mg PO BID atorvastatin (Lipitor) 40 mg PO BEDTIME cholecalciferol (vitamin D3) 25 mcg PO DAILY clobetasol 0.05% 1 appl topical BID PRN cyanocobalamin (vitamin B-12) 1,000 mcg PO MOFR diazepam (Valium) 5 mg PO BID PRN folic acid 1 mg PO DAILY levothyroxine 187.5 mcg (1.5 x 125 mcg) PO HONEYCUTT levothyroxine 125 mcg PO MOTUWETHFRSA oxycodone-acetaminophen 10-325 mg 1 - 2 tabs PO Q6H PRN Tobacco use date assessed: 08/19/24 Fall risk assessment: No Falls in past year Last assessed Fall Risk: 01/27/25 Dental Screening Dental Screen Date: 08/19/24 [facility] TCM TCM Information Date of Discharge 01/16/25 Discharged From [facility] Interactive Contact Date (Reference documentation from this date) 01/17/25 HPI Comments History of Present Illness Details 74 y/o Male patient who presents to the clinic today for TCM. Past medical history significant for HTN, HLD, tobacco dependence, CKD, AA, paroxysmal AFib on Eliquis, Trigeminal neuralgia, hypothyroidism, abdominal wall hernia, anemia, and anxiety. He was admitted at [facility] [place] on 01/15 - 01/16 for an evaluation and treatment of TIA. Patient presented to ED with transient left sided tingling, CT head, CTA of head and neck and MRI all showed no evidence of acute stroke. His presentation was consistent with TIA. He takes Eliquis for AFIB. Atorvastatin was started in the hospital - but Pt currently takes Simvastatin. Pt would like to stay on Simvastatin since it has been working well with no side effects plus it is affordable compared to Atorvastatin. Discussed with Pt that Atorvastatin is generally considered a more potent Statin, meaning it can achieve a higher level of LDL (bad cholesterol) reduction, especially at higher doses compared to Simvastatin which is [id number] intensity statin. [facility] Medical History (Updated 01/27/25 @ 16:46 by Hilaria Haynes NP) Hyperlipidemia Medicare annual wellness visit, initial Colonoscopy refused AAA (abdominal aortic aneurysm) Impaired glucose tolerance Cervical nerve root compression Psoriasis Hypertension Hypothyroid Hypercholesterolemia Tobacco abuse Surgical History History of facial surgery H/O arthroscopy of left knee History of AAA (abdominal aortic aneurysm) repair Family History Father Hypertension CVD (cardiovascular disease) Mother CVD (cardiovascular disease) Brother No problems noted. Brother No problems noted. Daughter No problems noted. Sister No problems noted. Sister No problems noted. Sister No problems noted. Sister No problems noted. 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 Bautista Lizarraga, Candace Krause, Oh Laureano and colleagues, with an educational elise from [employer]. Review of Systems Const All systems reviewed & are unremarkable except as noted in HPI and below Physical exam (Primary Care) Vital Signs: Last Vital Signs Temp 97.1 F 01/27/25 15:47 Pulse 60 01/27/25 15:47 BP 116/62 01/27/25 15:47 Pulse Ox 93 01/27/25 15:47 Oxygen Delivery Method Room Air 01/27/25 15:47 BMI result Body Mass Index 25.7 Tobacco/Smoking Status: Tobacco use Status Tobacco use date assessed 08/19/24 01/27/25 15:48 Patient Tobacco Use Status Current everyday Tobacco 01/27/25 15:48 Tobacco use type Cigarette 01/27/25 15:48 e-Cigarette/Vaping Use Never Used 01/27/25 15:48 Thrive Assessment: Date of Thrive Assessment Date Thrive assessed 01/16/25 01/27/25 15:48 Const General: no acute distress Resp Effort & Inspection: normal respiratory effort Auscultation: clear to auscultation bilaterally Cardio Heart sounds: S1 normal heart sound present and S2 normal heart sound present Coding Level of Care Code Est Pt Level 4 (59891) Diagnoses TIA (transient ischemic attack) G45.9 Mixed hyperlipidemia E78.2 Hyperlipidemia type: mixed hyperlipidemia Time Spent (min) 20 Assessment & Plan Assessment & Plan (1) TIA (transient ischemic attack): Code(s): G45.9 - Transient cerebral ischemic attack, unspecified Category: Medical Plan: Resolved. Discussed ways to make lifestyle changes; Stop smoking, weight loss etc (2) Hyperlipidemia: Code(s): E78.5 - Hyperlipidemia, unspecified Category: Medical Qualifiers: Hyperlipidemia type: mixed hyperlipidemia Qualified Code(s): E78.2 - Mixed hyperlipidemia Plan: Will continue with Simvastatin - per Patient's request. Medications: New simvastatin 10 mg PO QPM 30 tabs 0RF E78.5 - Hyperlipidemia, unspecified
== END 2025-01-27 16:35 | disposition home or self-care (01) ==
LOC: HO.HMCH 15:45
PROVIDERS: PCP Internal Medicine; Visit Provider Nurse Practitioner Family
DX: G45.9 Transient cerebral ischemic attack, unspecified (principal); E78.2 Mixed hyperlipidemia

== ENCOUNTER → 2025-01-27 15:44 | Outpatient (BNVA) | payer MEDICARE, SELFPAY | PROVIDERS: PCP Internal Medicine; Visit Provider Nurse Practitioner Family | DX: G45.9 Transient cerebral ischemic attack, unspecified (principal); E78.2 Mixed hyperlipidemia; F17.200 Nicotine dependence, unspecified, uncomplicated; Z71.6 Tobacco abuse counseling | CPT/HCPCS: 99212 ==

== ENCOUNTER 2025-01-31 13:58 | Outpatient (AMB) | payer MEDICARE, SELFPAY ==
--- NOTE | 2025-01-31 14:06 | MHC.OFFVIS ---
Intake Visit Reasons: Phimosis Intake Note: Patient is present for PHIMOSIS Urology Medication:NONE Antibiotic Allergy:NONE Blood Thinner:NONE Piece Marker Small Arms Required: No Allergies hydrochlorothiazide Adverse Reaction (Intermediate, Verified 01/31/25 14:07) elevation of BP HPI Comments Details: Jose Rafael is a pleasant male. He is a patient of Dr. Perez. He is seen for the following urologic conditions - phimosis Progressive On exam able to partially retract Recommend steroid based cream for 4 weeks and repeat if necessary Two month follow-up office [facility] Medical History (Updated 01/27/25 @ 16:46 by Hilaria Haynes NP) Hyperlipidemia Medicare annual wellness visit, initial Colonoscopy refused AAA (abdominal aortic aneurysm) Impaired glucose tolerance Cervical nerve root compression Psoriasis Hypertension Hypothyroid Hypercholesterolemia Tobacco abuse Surgical History History of facial surgery H/O arthroscopy of left knee History of AAA (abdominal aortic aneurysm) repair Family History Father Hypertension CVD (cardiovascular disease) Mother CVD (cardiovascular disease) Brother No problems noted. Brother No problems noted. Daughter No problems noted. Sister No problems noted. Sister No problems noted. Sister No problems noted. Sister No problems noted. 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 Cognitive needs: No Hearing needs: No Vision needs: Yes Review of Systems Const Denies chills and Denies fever(s) Card Reports no additional complaints and Denies syncope Resp Denies cough GI Denies abdominal pain and Denies heartburn Reports as per HPI and Denies change in libido Neuro Denies syncope Psych Denies change in libido Endo Denies change in libido Physical Exam Const General: cooperative, healthy appearing, comfortable and no acute distress Orientation/consciousness: patient oriented x3 HEENT Face and sinus: Yes normal facial exam Mouth: moist mucous membranes Neck Neck: Yes normal visual inspection, Yes full ROM and Yes trachea midline Chest Chest palpation & inspection: normal inspection of the chest Resp Effort & Inspection: normal respiratory effort, able to speak in complete sentences and no respiratory distress GI Inspection: Yes normal to inspection Back/Spine/Pelvis Cervical Spine: normal cervical lordosis Thoracic/Lumbar Spine: thoracic and lumbar spine normal to inspection Skin General skin exam: no rashes or lesions noted Neuro General: patient oriented x3, gait normal, tone normal and moves all extremities Extrem General: Yes normal to inspection and Yes capillary refill normal Assessment & Plan Assessment & Plan (1) Phimosis: Code(s): N47.1 - Phimosis Category: Medical Plan Topical steroid Medications: New betamethasone dipropionate 0.05% Apply a thin coat 2 times a day to area of tightness. Complete 4 week course. If needed initiate 2nd course. 1 appl topical BID 15 grams 0RF N47.1 - Phimosis, Q55.69 - Other congenital malformation of penis Patient Instructions: This note is constructed using voice recognition software. While every effort has been made to ensure accuracy selling manager errors may have been included. Imaging studies, laboratory and physical exam results were discussed and reviewed in detail. No major barriers to patient understanding were identified. An opportunity to ask questions regarding the treatment plan was provided. All questions were answered. The patient expressed understanding and agreement with the above treatment plan. The patient is aware they should contact our office by phone for worsening of their current condition or the appearance of new urologic symptoms. Compliance is encouraged with any medications and followup testing that is ordered. It is a privilege to participate in the urologic care of your patient. If you have any questions or concerns regarding treatment for the above conditions, or other urologic issues, please do not hesitate to contact me. The office telephone contact is [phone]. Sincerely, Dr Valentino Molina MD, [facility] - Urology Compassionate Specialist Care for the Genitourinary System Coding Level of Care Code New Pt Level 4 (37494) Diagnoses Phimosis N47.1
== END 2025-01-31 14:47 | disposition home or self-care (01) ==
LOC: HO.HUSH 13:59
PROVIDERS: PCP Internal Medicine; Visit Provider Urology
DX: N47.1 Phimosis (principal); Z13.9 Encounter for screening, unspecified
CPT/HCPCS: 99204

== ENCOUNTER → 2025-01-31 13:58 | Outpatient (BNVA) | payer MEDICARE, SELFPAY | PROVIDERS: PCP Internal Medicine; Visit Provider Urology | DX: N47.1 Phimosis (principal) | CPT/HCPCS: 81003; 99202 ==

== ENCOUNTER 2025-02-07 05:41 | Emergency (ER) | payer MEDICARE, SELFPAY ==
[2025-02-07] VITALS (14 sets, daily range): BP systolic 87–135; BP diastolic 50–77; PULSE 85–140; RESP 16–36; TEMP 37.5–40.4; O2SAT 95–99; BMI 24.5
--- NOTE | ~2025-02-07 | CT_ITS ---
EXAMINATION: CT CHEST WITHOUT CONTRAST CLINICAL INFORMATION: Sepsis. COMPARISON: Correlated to x-ray dated February 07, 2025. TECHNIQUE: Multidetector volumetric CT imaging of the chest was done. Axial MIP volume rendering provided. Sagittal and coronal reformatted images were obtained. This CT examination was performed using dose optimization techniques as appropriate, variously including the following: *Automated exposure control *Adjustment of mA and/or kV according to patient size (this includes techniques or standardized protocols for targeted exams where dose is matched to indication/reason for exam; i.e. extremities or head) *Use of iterative reconstruction technique DLP: 438 mGy centimeter. FINDINGS: OUTSIDE SALESMAN: Gas and fluid-filled prominent stomach and small bowel loops in the left hemiabdomen. LUNGS: Peribronchial septal thickening. Subtle patchy pulmonary groundglass, lower lung lobes and to a lesser extent lingula and right middle lung lobe. 15 mm noncalcified pulmonary nodule, right upper lung lobe. Paraseptal emphysematous changes in the lung apices. No gross bronchiectasis or honeycombing. Fluid/secretions within the trachea and right mainstem bronchus. MEDIASTINUM: Nonspecific prominent lymph nodes, mediastinum. Concentric wall thickening, intrathoracic esophagus with a narrowed lumen. Calcified plaques in the thoracic aorta wall and its main branches and the coronary arteries. No aneurysm, thoracic aorta. No gross pericardial effusion. No hemopericardium. The heart is not enlarged. CORONARY ARTERY CALCIFICATION: Calcified plaques. PLEURA: No gross pleural effusion. No pneumothorax. No hemothorax. AXILLA: No lymphadenopathy. UPPER ABDOMEN: Gas and fluid-filled prominent stomach and proximal small bowel loops. Residual contrast within the kidneys without gross hydronephrosis. Renal cortical thinning. Mixed plaques throughout the abdominal aorta wall and the origin of the mesenteric arteries and splenic artery. Contracted gallbladder. Mildly prominent right breast tissue. OSSEOUS STRUCTURES: Multilevel spondylosis without acute fracture or gross listhesis. No acute rib fracture. Scapula is intact bilaterally. The clavicles are intact. Osteopenia versus osteoporosis. CT/CT chest wo IV con IMPRESSION: Mild interstitial lung edema. Concerning intrathoracic esophagitis. 15 mm noncalcified pulmonary nodule, right upper lung lobe. Differential considerations include inflammatory versus infectious versus neoplasm. Secretions/fluid in the airway suggesting aspiration/penetration through the glottis Coronary artery disease and atherosclerosis disease. Fleischner guidelines were followed. Electronically signed by: Jarocho Kidd MD 02/07/2025 09:37 AM EDT RP
--- NOTE | ~2025-02-07 | CT_ITS ---
CLINICAL HISTORY: Stroke Protocol - LEFT SIDED WEAKNESS CT head without contrast Comparison: CT head 01/15/2025 Findings: No intra-axial mass, midline shift, hydrocephalus, or acute hemorrhage. There are stable central and cortical involutional changes. Stable old mild small-vessel ischemic changes. Stable mild encephalomalacia right cerebellar hemisphere. Stable right occipital craniectomy and right temporal craniotomy defects. There is no sinus or mastoid fluid. The orbits are unremarkable. There is no acute fracture. IMPRESSION: No acute intracranial findings. No acute hemorrhage Stable exam as above This document has been electronically signed by: Bautista Cinrton MD on 02/07/2025 06:12:11
--- NOTE | ~2025-02-07 | CT_ITS ---
CLINICAL HISTORY: Stroke Protocol - LEFT SIDED WEAKNESS CT angiography head and neck with contrast. 3D Postprocessing. Comparison: CT head 02/07/2025 and CTA head and neck 01/15/2025 Findings: There is no change when compared to prior CTA head and neck exam performed 01/15/2025. Aortic arch and cervical great vessels are patent with no aneurysm, dissection, hemodynamically significant stenoses. Visualized intracranial arteries are patent. No aneurysm, dissection, hemodynamically significant stenoses, or acute occlusion. 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 Stable dense calcific atherosclerotic plaques and mild soft plaques both carotid bulbs and internal carotid arteries stable 20-30% diameter stenosis proximal right internal carotid artery, stable approximately 30-40% diameter stenosis proximal left internal carotid artery The visualized thyroid gland is unremarkable. No cervical mass or fluid collection. Lung apices clear. No acute fracture. See CT head report for intracranial findings IMPRESSION: Stable exam This document has been electronically signed by: Bautista Cintron MD on 02/07/2025 06:46:57
--- NOTE | ~2025-02-07 | CT_ITS ---
EXAMINATION: CT ABDOMEN AND PELVIS WITHOUT CONTRAST CLINICAL INFORMATION: Abdominal pain. COMPARISON: December 16, 2016. TECHNIQUE: Multidetector volumetric imaging was performed from the superior aspect of the liver through the pubic symphysis. Sagittal and coronal reformatted images were obtained on the technologist's workstation. This CT examination was performed using dose optimization techniques as appropriate, variously including the following: *Automated exposure control *Adjustment of mA and/or kV according to patient size (this includes techniques or standardized protocols for targeted exams where dose is matched to indication/reason for exam; i.e. extremities or head) *Use of iterative reconstruction technique DLP: 623 mGy centimeter. FINDINGS: Inadequate evaluation of the intra-abdominal organs and vascular structures due to lack of IV contrast. LUNG BASES: Prominence of the interstitial lung markings with peribronchial septal thickening. LIVER, GALLBLADDER, AND BILIARY TREE: Liver measures 14 cm. Few less than 5 mm hypodensities too small to be fully characterized.. Gallbladder is contracted. No intrahepatic or extrahepatic biliary ductal dilatation. PANCREAS: No peripancreatic fluid collection. No main pancreatic ductal dilatation. SPLEEN: 13 cm. ADRENAL GLANDS: Soft tissue fullness without nodular lesions. KIDNEYS AND URETERS: There is residual contrast within the right collecting system. No gross hydronephrosis. Renal cortical thinning bilaterally. BLADDER: Contrast within the lumen and a Miller catheter in place. There is intraluminal gas likely related to post instrumentation. GASTROINTESTINAL TRACT: Abundant stool within the large intestine. Intestinal wall thickening, rectosigmoid colon. Gas and fluid-filled prominent proximal small bowel loops with small caliber distal ileal loops. There is concentric wall thickening of the intrathoracic esophagus resulting in narrowed lumen. Rectal probe in place. Hyperdensity within the cecum and a masslike appearance. I do not see the appendix. ABDOMINAL WALL: Small fat-containing umbilical hernia. There is protrusion of the intra-abdominal contents in the left lateral anterior wall of the abdomen. LYMPH NODES: Mildly prominent, retroperitoneum. VASCULAR: There is diffuse gas within the infrarenal abdominal aorta wall extending into the common iliac arteries bilaterally. There are mixed plaques throughout the abdominal aorta wall and iliac arteries with a maximum diameter of 4.5 cm. The right and left common iliac artery diameter is 2.8 cm. There is periaortic edema pattern in the infrarenal abdominal aorta wall. There is stent in the left main renal artery. Calcified plaques in the origin of the mesenteric arteries and the renal arteries. Calcified plaques in the coronary arteries and thoracic aorta. PELVIC VISCERA: Inadequate evaluation. Vascular clips in the right inguinal scrotal canal. OSSEOUS STRUCTURES: Multilevel thoracolumbar spondylosis. Osteopenia versus osteoporosis. Sclerosis and the sacroiliac joints. No acute fracture in the axial skeleton. CT/CT abdomen pelvis wo IV con IMPRESSION: Gas within the distal abdominal aorta wall and iliac arteries concerning for an infectious processes. The possibility of aortoenteric fistula seems less likely. Regional ileus versus partial/intermittent mid to distal small bowel obstruction. Concerning intrathoracic esophagitis. Splenomegaly. Coronary artery disease and atherosclerosis disease with mild interstitial lung edema. Discussed with the emergency physician Dr. Lizeth Hinkle on February 07, 2025 at 9:13 AM. Fleischner guidelines were followed. Electronically signed by: Jarocho Kidd MD 02/07/2025 09:29 AM EDT
--- NOTE | ~2025-02-07 | XR_ITS ---
CLINICAL HISTORY: Stroke - LT SIDE WEAKNESS 1 view chest x-ray Comparison: None provided Findings: There are bilateral perihilar and lower lobe pulmonary opacities most significant within the right lower lobe. No consolidation, no pleural effusions. Heart size is upper limits of normal. No acute fracture. There are mild distended upper abdominal bowel loops. The entire abdomen is not included on the field of view. IMPRESSION: Bilateral perihilar and lower lobe pulmonary opacities most significant within the right lower lobe. No consolidation, no pleural effusions. Mild distended upper abdominal bowel loops. The entire abdomen is not included on the field of view This document has been electronically signed by: Bautista Cintron MD on 02/07/2025 07:14:54
--- NOTE | 2025-02-07 05:46 | ECG_ITS ---
Test Reason : STROKE Blood Pressure : */* mmHG Vent. Rate : 87 BPM Atrial Rate : 87 BPM P-R Int : 154 ms QRS Dur : 92 ms QT Int : 440 ms P-R-T Axes : 70 42 78 degrees QTcB Int : 529 ms Normal sinus rhythm Possible Inferior infarct , age undetermined Abnormal ECG When compared with ECG of 15-Jan-2025 04:59, QT has lengthened Referred By: Felipe Stephens Electronically Signed By: LINH BRISENO MD
[2025-02-07 05:53] LABS: Glucose, Whole Blood 142 mg/dL (60-115)
[2025-02-07] MEDS: iohexoL 350 MG/ML 100 ML INFUS..BTL 70 ML IV (06:03)
[2025-02-07] MEDS: Lactated Ringers 1,000 ML 999 ML IV (06:17)
[2025-02-07 06:19] LABS: MANUAL DIFF FLAG NO
[2025-02-07 06:22] LABS: Hematocrit 35.1 % (42.0-52.0); Hemoglobin 12.0 g/dl (14.0-18.0); Imm Gran Abs Auto 0.16 X10*3/uL (0.00-0.03); Imm Gran Pct Auto 1.8 % (0.0-0.4); Lymphocytes Absolute Auto 0.8 X10*3/uL (1.2-4.9); Mean Corpuscular HGB Conc 34.2 g/dl (31.0-36.0); Mean Corpuscular Hemoglobin 29.9 pg (27.0-33.0); Mean Corpuscular Volume 87.3 fL (80.0-98.0); NRBC Abs Auto 0.000 X10*3/uL (0.0-0.012); NRBC Pct Auto 0.0 /100WBC (0.0-0.2); Platelet Count 103 X10*3/uL (160-400); Red Blood Count 4.02 X10*6/uL (4.60-5.80); White Blood Count 8.9 X10*3/uL (4.8-10.8)
[2025-02-07 06:30] LABS: INTERNATIONAL NORM RATIO 1.8 (0.9-1.1); Partial Thromboplastin Time 34.4 SEC (26.0-36.8); Prothrombin Time 21.2 SEC (10.9-12.4)
[2025-02-07 06:31] LABS: Stroke Lab Use COMPLETE
[2025-02-07 06:37] LABS: Anion Gap 18 (12-20); Blood Urea Nitrogen 25 mg/dL (9-16); Calcium 9.2 mg/dL (8.4-10.2); Carbon Dioxide 19 mmol/L (22-29); Chloride 104 mmol/L (96-108); Cholesterol 95 mg/dL (<200); Creatinine Clr Calc Pharmacy 37.6; Estimated Glomerular Filt Rate 36; HDL Cholesterol 31 mg/dL (>40); Potassium 3.2 mmol/L (3.3-5.1); Sodium 138 mmol/L (135-145); Triglycerides 69 mg/dL (<150)
[2025-02-07 06:40] LABS: Troponin-I High Sensitivity 60.0 ng/L (<3.5-35.0)
[2025-02-07 07:02] LABS: Resp Syncy Virus RNA Qual PCR NEGATIVE (Negative); SARS COV2 PCR INHOUSE NEGATIVE (Negative)
[2025-02-07] MEDS: LACTATED RINGERS 2454 ML IV (07:07)
--- NOTE | 2025-02-07 07:13 | ED.AMS ---
HPI - Altered Mental Status General Chief Complaint: Altered Mental Status Stated Complaint: STROKE LIKE SYMPTOMS Time Seen by Provider: 02/07/25 05:46 History of Present Illness HPI narrative: Patient is a 74-year-old male with a history of TIA currently on Eliquis history of chronic kidney disease, hypertension presented today with generalized malaise weakness change in mental status more lethargy then usual since yesterday at approximately 7 20:00. Patient from home. Also history of hypertension hypercholesterolemia. Feels very weak generalized malaise. Related Data Home Medications ?Medication ?Instructions ?Recorded ?Confirmed clobetasol 0.05 % topical ointment 1 appl topical BID PRN Rash 01/15/25 01/27/25 oxycodone-acetaminophen 10 mg-325 1 - 2 tab PO Q6H PRN pain 01/15/25 01/27/25 mg tablet Previous Rx's ?Medication ?Instructions ?Recorded atenolol 50 mg tablet 50 mg PO BID #180 tabs 08/19/24 folic acid 1 mg tablet 1 mg PO DAILY #90 caps 09/20/24 apixaban 5 mg tablet (Eliquis) 5 mg PO BID #60 tabs 11/23/24 levothyroxine 125 mcg tablet 125 mcg PO MOTUWETHFRSA #90 tabs 01/19/25 levothyroxine 125 mcg tablet 187.5 mcg (1.5 x 125 mcg) PO HONEYCUTT 01/19/25 #18 tabs diazepam 5 mg tablet (Valium) 5 mg PO BID PRN anxiety 90 days 01/27/25 #90 tabs simvastatin 10 mg tablet 10 mg PO QPM #30 tabs 01/27/25 betamethasone dipropionate 0.05 % 1 appl topical BID #15 grams 01/31/25 topical ointment oxycodone-acetaminophen 10 mg-325 See Rx Instructions .Route Q6H PRN 02/02/25 mg tablet pain #240 tabs Allergies Allergy/AdvReac Type Severity Reaction Status Date / Time hydrochlorothiazide AdvReac Intermediate elevation Verified 02/07/25 06:02 of BP Review of Systems Review of Systems: Positive generalized malaise weakness No coughing no vomiting PMFSH Past Medical History Attestation statement: The following information was validated with the patient. Medical History Hyperlipidemia Medicare annual wellness visit, initial Colonoscopy refused AAA (abdominal aortic aneurysm) Impaired glucose tolerance Cervical nerve root compression Psoriasis Hypertension Hypothyroid Hypercholesterolemia Tobacco abuse Surgical History History of facial surgery H/O arthroscopy of left knee History of AAA (abdominal aortic aneurysm) repair Family History Family History Father Hypertension CVD (cardiovascular disease) Mother CVD (cardiovascular disease) Brother No problems noted. Brother No problems noted. Daughter No problems noted. Sister No problems noted. Sister No problems noted. Sister No problems noted. Sister No problems noted. Social History Social History Household Members: Spouse and Family Housing: House Do you presently have visiting nurse or other home services: No Alcohol intake: never Patient Tobacco Use Status: Current everyday Tobacco user Tobacco use type: Cigarette Cigarette Packs Per Day: 0.5 Cigarettes Per Day: 5 Smoked in Last 30 Days: Yes e-Cigarette/Vaping Use: Never Used Second Hand Smoke Exposure: Yes Use of substances other than those prescribed or required for medical reasons: No Advance Directives: No Advance Directives Information Provided: Yes Do you have a plan to hurt others: No Plan service: No Current occupational status: retired 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 Cognitive needs: No Hearing needs: No Vision needs: Yes Physical Exam ED Vital Signs: Vital Signs - 24 hr 02/07/25 05:59 02/07/25 06:21 02/07/25 07:08 Temperature 104.8 F H 101.7 F H Pulse Rate 85 86 103 H Respiratory Rate 16 36 H Blood Pressure 89/57 L 135/64 127/50 L Pulse Oximetry 99 95 Oxygen Delivery Method Room Air Room Air 02/07/25 07:11 02/07/25 08:37 02/07/25 09:13 Temperature 101.7 F H 99.7 F 99.5 F Pulse Rate 103 H 140 H 130 H Respiratory Rate 36 H 22 H 33 H Blood Pressure 127/50 L 115/50 L 113/66 Pulse Oximetry 95 96 95 Oxygen Delivery Method Room Air Room Air Room Air 02/07/25 09:59 02/07/25 10:09 02/07/25 10:11 Temperature 99.7 F 99.9 F Pulse Rate 139 H 116 H Respiratory Rate 33 H 21 H Blood Pressure 87/56 L 124/66 102/70 Pulse Oximetry 97 98 Oxygen Delivery Method Room Air Room Air 02/07/25 10:38 02/07/25 10:48 02/07/25 10:57 Temperature 100.2 F 100.6 F H Pulse Rate 129 H 127 H Respiratory Rate 20 Blood Pressure 105/66 134/62 101/61 Pulse Oximetry 96 96 Oxygen Delivery Method Room Air Room Air 02/07/25 11:35 02/07/25 11:59 Temperature 100.9 F H 100.9 F H Pulse Rate 114 H 114 H Respiratory Rate 23 H 23 H Blood Pressure 115/65 115/65 Pulse Oximetry 97 97 Oxygen Delivery Method Room Air Room Air BMI result Body Mass Index 24.5 Appearance: Alert. Oriented X3. No acute distress. Lethargic Eyes: Pupils equal, round and reactive to light. ENT: Pharynx normal. Neck: Normal inspection. Neck supple. No lymph nodes noted. No crepitus CVS: Normal heart rate and rhythm. Pulses normal. Normal S1 and S2 Respiratory: No respiratory distress. Breath sounds normal. No Wheezing. No rales Abdomen: Soft diffuse tenderness no rebound no guarding no rigidity no distention positive bowel sounds Skin: Skin warm and dry. Normal skin color. Normal skin turgor. Extremities: No lower extremity edema. Neurovascular intact to all extremities. No Lacerations. No Rash Neuro: Oriented X 3. No motor deficit. No sensory deficit. Moving all extermities. No slurred speech Course Reevaluation(s) Reevaluation #1: Louise Schneider NP 02/07/2025 15:30 received call from microbiology 2/2 blood cultures with Gram-positive rods. Contacted [facility] while patient was transferred to, made physician aware positive finding, results being faxed accordingly to their department. Medications Administered Discontinued Medications Generic Name Dose Route Start Last Admin Trade Name Freq PRN Reason Stop Dose Admin Ceftriaxone Sodium 1 gm 02/07/25 06:09 02/07/25 06:19 Ceftriaxone Sodium 1 Gm Vial IVPUSH 02/07/25 06:10 1 gm ONCE ONE Administration Ceftriaxone Sodium 1 gm 02/07/25 07:12 02/07/25 07:21 Ceftriaxone Sodium 1 Gm Vial IVPUSH 02/07/25 07:13 1 gm ONCE ONE Administration Lactated Ringer's 1,000 mls @ 999 mls/hr 02/07/25 06:15 02/07/25 07:07 Lr IV 02/07/25 07:15 Infused .Q1H1M JAY JAY Infusion Acetaminophen 1,000 mg in 100 mls @ 400 mls/hr 02/07/25 06:09 02/07/25 06:31 Ofirmev IV 02/07/25 06:23 Infused ONCE ONE Infusion Lactated Ringer's 2,454 mls @ 2,454 mls/hr 02/07/25 06:27 02/07/25 09:12 Lr 30 ml/kg infuse over 1 hr (2454 ml) 02/07/25 07:26 Infused IV Infusion .Q1H ONE Metronidazole 500 mg in 100 mls @ 100 mls/hr 02/07/25 07:12 02/07/25 09:11 Flagyl IV 02/07/25 08:11 Infused ONCE ONE Infusion Iohexol 70 ml 02/07/25 05:57 02/07/25 06:03 Iohexol 350 Mg/Ml 100 Ml Infus..Btl IV 02/07/25 05:58 70 ml ONCE ONE Administration Medical Decision Making Medical Decision Making MDM Narrative: Elevated temp up to 104 with altered mental status generalized malaise weakness. Patient's BUN and creatinine was elevated. CT head CT angio was done prior to my arrival. The report shows that there were grossly negative. Patient is in considering the fever more likely septic than having a stroke. Question source. Patient's flu COVID RSV were negative. My interpretation patient's chest x-ray is grossly negative for pneumonia. Urine is being sent. Initially had a low blood pressures given 30 cc/kilos fluids. Blood pressure is improving. Temperature improving. We will get a CT scan of the abdomen pelvis. Nine hundred twenty in the morning had a discussion with the radiologist. CT scan of the chest was done. Grossly negative for pneumonia no pneumothorax. CT scan of the abdomen pelvis shows signs of an ileus. There is question air in the aorta. Question infection question fistula. Will consult vascular. Patient's case discussed with vascular at [facility] felt it is beyond the capability of a hospital. There is question air in the aorta suggestive of an infection versus a fistula although I doubt patient has a fistula because patient is not acutely bleeding especially when he is on Eliquis. More likely a question infection with the fever. Already on antibiotics. Patient's case discussed with vascular surgery at [facility]. They did not want the admission they felt the patient most likely will not be a surgical candidate given the previous surgery he had received there. Patient's case was then transferred to [facility]. Discussed with the vascular surgeon at [facility] and also with the transfer center. Accepted patient to the emergency department. In critical condition. Patient's blood pressure is maintaining. His stool was guaiac positive but is brown. Patient being transferred to [facility] ED Differential Diagnosis Differential Diagnoses: The differential diagnosis associated with the presentation includes Urosepsis, intra-abdominal pathology, pneumonia, COVID flu RSV, stroke Admission/Observation Consideration of admission/observation: Escalation of care including admission/observation considered Consult Healthcare Provider Management of the patient was discussed with: Hospitalist Lab Data MDM Lab Attestation statement: I reviewed the patient's lab results. 02/07/25 06:14 02/07/25 06:14 Labs: Lab Results 02/07/25 02/07/25 02/07/25 Range/Units 05:45 06:14 06:22 WBC 8.9 (4.8-10.8) X10*3/uL RBC 4.02 L (4.60-5.80) X10*6/uL Hgb 12.0 L (14.0-18.0) g/dl Hct 35.1 L (42.0-52.0) % MCV 87.3 (80.0-98.0) fL MCH 29.9 (27.0-33.0) pg MCHC 34.2 (31.0-36.0) g/dl RDW 12.9 (11.0-16.0) % Plt Count 103 L D (160-400) X10*3/uL MPV 9.1 L (9.4-12.4) fL Immature Gran % (Auto) 1.8 H (0.0-0.4) % Neut % (Auto) 82.3 H (45-73) % Lymph % (Auto) 8.4 L (20-40) % [place] % (Auto) 7.3 (2-11) % Eos % (Auto) 0.0 (0-4) % Baso % (Auto) 0.2 (0-2) % Lymph # (Auto) 0.8 L (1.2-4.9) X10*3/uL [place] # (Auto) 0.7 (0.1-1.2) X10*3/uL Eos # (Auto) 0.0 (0.0-0.4) X10*3/uL Baso # (Auto) 0.0 (0.0-0.2) X10*3/uL Abs Immat Gran (auto) 0.16 H (0.00-0.03) X10*3/uL Absolute Neuts (auto) 7.3 (2.0-8.3) x10*3/uL Absolute Nucleated RBC 0.000 (0.0-0.012) X10*3/uL Nucleated RBC % (auto) 0.0 (0.0-0.2) /100WBC PT 21.2 H D (10.9-12.4) SEC INR 1.8 H (0.9-1.1) APTT 34.4 (26.0-36.8) SEC Sodium 138 (135-145) mmol/L Potassium 3.2 L (3.3-5.1) mmol/L Chloride 104 (96-108) mmol/L Carbon Dioxide 19 L (22-29) mmol/L Anion Gap 18 (12-20) BUN 25 H (9-16) mg/dL Creatinine 1.83 H (0.5-1.4) mg/dL Estim Creat Clear Calc 37.6 Estimated GFR 36 POC Glucose 142 H (60-115) mg/dL Random Glucose 126 H (60-115) mg/dL Lactic Acid 6.1 H* (0.5-2.0) mmol/L Lactic Acid F/U @ 2Hr (0.5-2.0) mmol/L Lactic Acid F/U @ 4Hr (0.5-2.0) mmol/L Calcium 9.2 (8.4-10.2) mg/dL Troponin I High Sens 60.0 H D (<3.5-35.0) ng/L Triglycerides 69 (<150) mg/dL Cholesterol 95 (<200) mg/dL LDL Cholesterol, Calc 51 (<100) mg/dL HDL Cholesterol 31 L (>40) mg/dL Urine Color Urine Appearance Urine pH (5.0-9.0) Ur Specific [place] (1.005-1.025) Urine Protein (Neg-Trace) mg/dL Urine Glucose (UA) (Negative) mg/dL Urine Ketones (Negative) mg/dL Urine Blood (Negative) Urine Nitrite (Negative) Ur Leukocyte Esterase (Negative) Urine RBC (0-2) /HPF Urine WBC (0-5) /HPF Ur Squamous Epith Cells (0-2) /HPF Urine Bacteria (None Seen) Hyaline Casts (0-2) /LPF Stool Occult Blood (NEGATIVE) Influenza Type A (PCR) NEGATIVE (Negative) Influenza Type B (PCR) NEGATIVE (Negative) RSV RNA Qual (PCR) NEGATIVE (Negative) SARS-CoV-2 RNA (RT-PCR) NEGATIVE (Negative) 02/07/25 02/07/25 02/07/25 Range/Units 08:20 08:43 10:21 WBC (4.8-10.8) X10*3/uL RBC (4.60-5.80) X10*6/uL Hgb (14.0-18.0) g/dl Hct (42.0-52.0) % MCV (80.0-98.0) fL MCH (27.0-33.0) pg MCHC (31.0-36.0) g/dl RDW (11.0-16.0) % Plt Count (160-400) X10*3/uL MPV (9.4-12.4) fL Immature Gran % (Auto) (0.0-0.4) % Neut % (Auto) (45-73) % Lymph % (Auto) (20-40) % [place] % (Auto) (2-11) % Eos % (Auto) (0-4) % Baso % (Auto) (0-2) % Lymph # (Auto) (1.2-4.9) X10*3/uL [place] # (Auto) (0.1-1.2) X10*3/uL Eos # (Auto) (0.0-0.4) X10*3/uL Baso # (Auto) (0.0-0.2) X10*3/uL Abs Immat Gran (auto) (0.00-0.03) X10*3/uL Absolute Neuts (auto) (2.0-8.3) x10*3/uL Absolute Nucleated RBC (0.0-0.012) X10*3/uL Nucleated RBC % (auto) (0.0-0.2) /100WBC PT (10.9-12.4) SEC INR (0.9-1.1) APTT (26.0-36.8) SEC Sodium (135-145) mmol/L Potassium (3.3-5.1) mmol/L Chloride (96-108) mmol/L Carbon Dioxide (22-29) mmol/L Anion Gap (12-20) BUN (9-16) mg/dL Creatinine (0.5-1.4) mg/dL Estim Creat Clear Calc Estimated GFR POC Glucose (60-115) mg/dL Random Glucose (60-115) mg/dL Lactic Acid (0.5-2.0) mmol/L Lactic Acid F/U @ 2Hr 4.3 H* (0.5-2.0) mmol/L Lactic Acid F/U @ 4Hr (0.5-2.0) mmol/L Calcium (8.4-10.2) mg/dL Troponin I High Sens (<3.5-35.0) ng/L Triglycerides (<150) mg/dL Cholesterol (<200) mg/dL LDL Cholesterol, Calc (<100) mg/dL HDL Cholesterol (>40) mg/dL Urine Color Dark Yellow Urine Appearance Clear Urine pH 6.0 (5.0-9.0) Ur Specific [place] >= 1.030 H (1.005-1.025) Urine Protein 100 (2+) H (Neg-Trace) mg/dL Urine Glucose (UA) Negative (Negative) mg/dL Urine Ketones Trace (Negative) mg/dL Urine Blood Moderate (2+) H (Negative) Urine Nitrite Negative (Negative) Ur Leukocyte Esterase Negative (Negative) Urine RBC 11-20 H (0-2) /HPF Urine WBC 0-5 (0-5) /HPF Ur Squamous Epith Cells 0-2 (0-2) /HPF Urine Bacteria None Seen (None Seen) Hyaline Casts 0-2 (0-2) /LPF Stool Occult Blood POSITIVE (NEGATIVE) Influenza Type A (PCR) (Negative) Influenza Type B (PCR) (Negative) RSV RNA Qual (PCR) (Negative) SARS-CoV-2 RNA (RT-PCR) (Negative) 02/07/25 Range/Units 11:29 WBC (4.8-10.8) X10*3/uL RBC (4.60-5.80) X10*6/uL Hgb (14.0-18.0) g/dl Hct (42.0-52.0) % MCV (80.0-98.0) fL MCH (27.0-33.0) pg MCHC (31.0-36.0) g/dl RDW (11.0-16.0) % Plt Count (160-400) X10*3/uL MPV (9.4-12.4) fL Immature Gran % (Auto) (0.0-0.4) % Neut % (Auto) (45-73) % Lymph % (Auto) (20-40) % [place] % (Auto) (2-11) % Eos % (Auto) (0-4) % Baso % (Auto) (0-2) % Lymph # (Auto) (1.2-4.9) X10*3/uL [place] # (Auto) (0.1-1.2) X10*3/uL Eos # (Auto) (0.0-0.4) X10*3/uL Baso # (Auto) (0.0-0.2) X10*3/uL Abs Immat Gran (auto) (0.00-0.03) X10*3/uL Absolute Neuts (auto) (2.0-8.3) x10*3/uL Absolute Nucleated RBC (0.0-0.012) X10*3/uL Nucleated RBC % (auto) (0.0-0.2) /100WBC PT (10.9-12.4) SEC INR (0.9-1.1) APTT (26.0-36.8) SEC Sodium (135-145) mmol/L Potassium (3.3-5.1) mmol/L Chloride (96-108) mmol/L Carbon Dioxide (22-29) mmol/L Anion Gap (12-20) BUN (9-16) mg/dL Creatinine (0.5-1.4) mg/dL Estim Creat Clear Calc Estimated GFR POC Glucose (60-115) mg/dL Random Glucose (60-115) mg/dL Lactic Acid (0.5-2.0) mmol/L Lactic Acid F/U @ 2Hr (0.5-2.0) mmol/L Lactic Acid F/U @ 4Hr 6.5 H* (0.5-2.0) mmol/L Calcium (8.4-10.2) mg/dL Troponin I High Sens (<3.5-35.0) ng/L Triglycerides (<150) mg/dL Cholesterol (<200) mg/dL LDL Cholesterol, Calc (<100) mg/dL HDL Cholesterol (>40) mg/dL Urine Color Urine Appearance Urine pH (5.0-9.0) Ur Specific [place] (1.005-1.025) Urine Protein (Neg-Trace) mg/dL Urine Glucose (UA) (Negative) mg/dL Urine Ketones (Negative) mg/dL Urine Blood (Negative) Urine Nitrite (Negative) Ur Leukocyte Esterase (Negative) Urine RBC (0-2) /HPF Urine WBC (0-5) /HPF Ur Squamous Epith Cells (0-2) /HPF Urine Bacteria (None Seen) Hyaline Casts (0-2) /LPF Stool Occult Blood (NEGATIVE) Influenza Type A (PCR) (Negative) Influenza Type B (PCR) (Negative) RSV RNA Qual (PCR) (Negative) SARS-CoV-2 RNA (RT-PCR) (Negative) Independent Interpretation I performed an independent interpretation of an: EKG (Atrial fibrillation heart rate is 130), Plain X-Ray (Chest x-ray grossly negative for pneumonia) and CT Scan (Gas in the abdominal aortic wall noted) Radiology Impression Discussion of test interpretation with radiology: I discussed test interpretation with the radiologist and I have reviewed the radiologist's reading. Radiologist Impression: I discussed with the radiologist about the CT abdomen interpretation Independent Historian Clinical information obtained from an independent historian. History obtained from or confirmed by: Spouse External Record Review External record reviewed: Inpatient record Chronic Conditions Patient?s care impacted by: Hypertension Atrial fibrillation abdominal aortic aneurysm Social Determinants Patient?s care significantly limited by Social Determinants of Health including: Problems related to primary support group Critical Care Time Critical Care Time Critical Care Time: Yes Total Critical Care Time: 90 Attestation: I have personally provided 90 minutes of critical care time exclusive of time spent on separately billable procedures. ?Time includes review of lab data, radiology results, discussion with consultants, and monitoring for potential decompensation. ?Interventions were performed as documented above Discharge Plan Discharge Clinical Impression: AAA (abdominal aortic aneurysm), Infected aortic graft Patient Disposition: [facility] Transfer Details: Transferred to [facility] Prescriptions: No Action folic acid 1 mg tablet 1 mg PO DAILY Qty: 90 1RF Eliquis 5 mg tablet 5 mg PO BID Qty: 60 3RF levothyroxine 125 mcg tablet 187.5 mcg PO HONEYCUTT Qty: 18 3RF levothyroxine 125 mcg tablet 125 mcg PO MOTUWETHFRSA Qty: 90 3RF Rx Instructions: Except thursday tabs 1.5 tabs diazepam [Valium] 5 mg tablet 5 mg PO BID PRN (Reason: anxiety) 90 Days Qty: 90 0RF oxycodone-acetaminophen 10-325 mg tablet See Rx Instructions .ROUTE Q6H PRN (Reason: pain) Qty: 240 0RF Rx Instructions: 1-2 tabs every 6 hours PRN; oxycodone-acetaminophen 10-325 mg tablet 1 - 2 tab PO Q6H PRN (Reason: pain) clobetasol 0.05 % ointment 1 appl topical BID PRN (Reason: Rash) atenolol 50 mg tablet 50 mg PO BID Qty: 180 2RF simvastatin 10 mg tablet 10 mg PO QPM Qty: 30 0RF betamethasone dipropionate 0.05 % ointment 1 appl topical BID Qty: 15 0RF Rx Instructions: Apply a thin coat 2 times a day to area of tightness. Complete 4 week course. If needed initiate 2nd course. Interventions: Acute Care Transfer Worksheet (ED) Last Done: 02/07/25 11:59 Discharge Date/Time: 02/07/25 12:01 Print Language: Luxembourgish
[2025-02-07] MEDS: metroNIDAZOLE/NS 500 MG/100 ML PIGGYBACK 100 MG IV (07:21)
--- NOTE | 2025-02-07 07:31 | PC.NURSE ---
Pt is recieving fluids, chan cath in place and draining. Lungs sound a little congested but pt not following directions and taking deep breaths. RR even and unlabored, pt denies any pain at this time. Pt had a recent TIA and is noted to have some slurring of his speach, A+OX2-3, to person and place, knew it was 2024 but thought it was october. Pt has to be continued to be reminded he can just pee with the chan in place. Abdomen appears to be a bit enlarged as well. Pt denies CP and SOB, RR even but a bit shallow and elevated RR, SPO2 in high 90s.
--- NOTE | 2025-02-07 07:35 | PC.NURSE ---
pt is awake but appears to slightly confused at this time, is answering majority of the questions appropriately but at times difficulty to understanding do to the pt's garbled speech which is not the pt's baseline according to the , according to the the pt was not feeling well last night 02/06/25 around 1900 was feeling generally weak and vomiting, skin pink warm to touch-has a fever, pt respirations even and unlabored, ls clear, pt's abd appears to be distended especially on the left side, no bowel sounds on the right but hyper active bowel sounds on the left, hr ranges from 90-160's in a-fib on the monitor. pt denies pain and chan in place by previous shift and draining dark yellow urine
[2025-02-07 08:18] LABS: Reflex Lactate? Lactic Acid Added
[2025-02-07 08:27] LABS: Appearance Urine Clear; Glucose Urine UA Negative (Negative); PH 6.0 (5.0-9.0); Specific Gravity - Urine >= 1.030 (1.005-1.025); UMIC TRIGGER UACC YES
[2025-02-07 09:04] LABS: ~Lactic Acid-LAB USE ONLY 4.3 mmol/L (0.5-2.0)
--- NOTE | 2025-02-07 10:15 | PC.NURSE ---
pt has a very large bowel movement some formed some loose, color slightly tarry in color, will send the stool occult down
--- NOTE | 2025-02-07 10:16 | PC.NURSE ---
Phenylephrine drip delayed at this time after consulting with provider. Pt found to have BP on R sided of 124/66 and BP on L was 87/56 with a recheck of 102/70. Provided stated if systolic drops below 90 to start the drip. Drip prepped at bedside.
[2025-02-07 10:38] LABS: OBS Int Ctl Valid YES; OBS1 POSITIVE (NEGATIVE)
[2025-02-07 10:47] LABS: Reflex Lactate? 2 Y
[2025-02-07 11:57] LABS: ~Lactic Acid-LAB USE ONLY 6.5 mmol/L (0.5-2.0)
--- NOTE | 2025-02-07 11:58 | PC.NURSE ---
Report called to ED Nurse at [facility]. EMS arrived and picked up patient.
[2025-02-07 16:25] LABS: INR Whole Blood 1.4 (0.9-1.1); Prothrombin Time Whole Blood 16.8 sec (11.1-13.5)
== END 2025-02-07 12:01 | disposition short-term general hospital (02) ==
PROVIDERS: Emergency Medicine; Emergency Provider Emergency Medicine Emergency Medical Services; PCP Internal Medicine
DX: I71.43 Infrarenal abdominal aortic aneurysm, without rupture (principal); T82.7XXA Infection and inflammatory reaction due to other cardiac and vascular devices, implants and grafts, initial encounter; Y82.8 Other medical devices associated with adverse incidents; Y92.019 Unspecified place in single-family (private) house as the place of occurrence of the external cause; R41.82 Altered mental status, unspecified; R53.83 Other fatigue; R50.9 Fever, unspecified; Z03.818 Encounter for observation for suspected exposure to other biological agents ruled out; I12.9 Hypertensive chronic kidney disease with stage 1 through stage 4 chronic kidney disease, or unspecified chronic kidney disease; N18.30 Chronic kidney disease, stage 3 unspecified; E78.00 Pure hypercholesterolemia, unspecified; I48.0 Paroxysmal atrial fibrillation; Z86.73 Personal history of transient ischemic attack (TIA), and cerebral infarction without residual deficits; Z79.02 Long term (current) use of antithrombotics/antiplatelets; Z79.01 Long term (current) use of anticoagulants; Z79.899 Other long term (current) drug therapy; F17.210 Nicotine dependence, cigarettes, uncomplicated
CPT/HCPCS: 36415; 70450; 70496; 70498; 71045; 71250; 74176; 80048; 80061; 81001; 82272; 82947; 83605; 84484; 85025; 85610; 85730; 87040; 87076; 87185; 87205; 87637; 93005; 96361; 96374; 96375; 96376; 99285; 99291; 99292; J0131; J0696; J1836; J7120; Q9967

== ENCOUNTER → 2025-02-07 05:46 | Outpatient (BNV) | payer MEDICARE, SELFPAY | PROVIDERS: Emergency Provider Emergency Medicine Emergency Medical Services; PCP Internal Medicine; Visit Provider Internal Medicine Cardiovascular Disease | DX: R94.31 Abnormal electrocardiogram [ECG] [EKG] (principal); I63.9 Cerebral infarction, unspecified | CPT/HCPCS: 93010 ==

== ENCOUNTER → 2025-02-07 05:46 | Outpatient (BNV) | payer MEDICARE, SELFPAY | PROVIDERS: Emergency Provider Emergency Medicine Emergency Medical Services; Visit Provider Radiology Diagnostic Radiology | DX: R53.1 Weakness (principal); R14.0 Abdominal distension (gaseous); R16.1 Splenomegaly, not elsewhere classified; I25.10 Atherosclerotic heart disease of native coronary artery without angina pectoris; R91.1 Solitary pulmonary nodule; R91.8 Other nonspecific abnormal finding of lung field | CPT/HCPCS: 71250; 74176 ==